=== PATIENT | female | born 1965 | race Caucasian/White ===

== ENCOUNTER → 2017-06-28 | Outpatient (CLI) | payer BC ==
--- NOTE | 2017-06-29 09:37 | MM ---
Reason for exam: screening (asymptomatic). Last mammogram was performed 1 year and 2 months ago. History: Patient has history of endometrial cancer at age 26. Physical Findings: A clinical breast exam by your physician is recommended on an annual basis and results should be correlated with mammographic findings. MG Screening Mammo w CAD Bilateral CC and MLO view(s) were taken. Prior study comparison: April 20, 2016, bilateral MG screening mammo w CAD. February 11, 2015, bilateral MG screening mammo w CAD. February 04, 2014, bilateral digital screening mammo w/CAD. There are scattered fibroglandular densities. Finding: There are typically benign calcifications in both breasts. No significant changes in finding since April 20, 2016, February 11, 2015, and February 04, 2014. ASSESSMENT: Benign, BI-RAD 2 RECOMMENDATION: Routine screening mammogram of both breasts in 1 year.
== END | disposition home or self-care (01) ==
LOC: RADMAMWWP 15:53
PROVIDERS: ATTEND Family Medicine
DX: Z12.31 Encounter for screening mammogram for malignant neoplasm of breast (principal)

== ENCOUNTER → 2018-07-03 | Outpatient (CLI) | payer BC ==
--- NOTE | 2018-07-04 14:58 | MM ---
Reason for exam: screening (asymptomatic). Last mammogram was performed 1 year ago. History: Patient has history of endometrial cancer at age 26. Physical Findings: A clinical breast exam by your physician is recommended on an annual basis and results should be correlated with mammographic findings. MG Screening Mammo w CAD Bilateral CC and MLO view(s) were taken. Prior study comparison: June 28, 2017, bilateral MG screening mammo w CAD. April 20, 2016, bilateral MG screening mammo w CAD. The breast tissue is almost entirely fat. No significant changes when compared with prior studies. ASSESSMENT: Benign, BI-RAD 2 RECOMMENDATION: Routine screening mammogram of both breasts in 1 year.
== END | disposition home or self-care (01) ==
LOC: RADMAMWWP 09:53
PROVIDERS: ATTEND Family Medicine
DX: Z12.31 Encounter for screening mammogram for malignant neoplasm of breast (principal)
CPT/HCPCS: 77067

== ENCOUNTER → 2019-12-03 | Outpatient (CLI) | payer BC ==
--- NOTE | 2019-12-03 20:24 | US ---
EXAMINATION TYPE: US transvaginal DATE OF EXAM: 12/03/2019 COMPARISON: NONE CLINICAL HISTORY: N95.0 Post Menopausal Bleeding. One episode of postmenopausal bleeding. LMP 2 years ago. Hx precancerous cells in cervix. Procedure done for precancerous cells. Hx . . TECHNIQUE: Transvaginal. Date of LMP: 2 years ago. EXAM MEASUREMENTS: Uterus: 8.7 x 6.2 x 5.2 cm Endometrial Stripe: 0.75 cm Right Ovary: Not visualized Left Ovary: Not visualized cm 1. Uterus: Anteverted Appears heterogeneous. Multiple subcentimeter anechoic-hypoechoic areas seen w ithin the cervix. Limited. 2. Endometrium: Limited, measured at 0.75 cm. 3. Bilateral Adnexa: Appear to be wnl. 4. Posterior cul-de-sac: Appears to be wnl. IMPRESSION: Limited exam. Heterogeneous echotexture within the cervix with some possible associated n abothian cysts and myometrium also not well seen in its entirety. Ovaries are not visualized.
== END | disposition home or self-care (01) ==
LOC: RADUSWWP 16:39
PROVIDERS: ATTEND Family Medicine
DX: N95.0 Postmenopausal bleeding (principal)
CPT/HCPCS: 76830

== ENCOUNTER → 2020-01-07 | Outpatient (CLI) | payer BC ==
[2020-01-07 08:34] LABS: Basophils # (A) 0.1 k/uL (0-0.2); Basophils % (A) 1 %; Eosinophils # (A) 0.3 k/uL (0-0.7); Eosinophils % (A) 5 %; HCT 43.1 % (34.0-46.0); HGB 13.8 gm/dL (11.4-16.0); Lymphocytes # (A) 2.4 k/uL (1.0-4.8); Lymphocytes % (A) 37 %; MCH 29.1 pg (25.0-35.0); Mean Platelet Volume 8.2; Monocytes # (A) 0.3 k/uL (0-1.0); Monocytes % (A) 4 %; Neutrophils # (A) 3.3 k/uL (1.3-7.7); Neutrophils % (A) 51 %; Platelet Count 219 k/uL (150-450); RBC 4.74 m/uL (3.80-5.40); RDW 13.7 % (11.5-15.5); WBC 6.5 k/uL (3.8-10.6)
[2020-01-07 08:49] LABS: Albumin 4.2 g/dL (3.5-5.0); Calcium 9.2 mg/dL (8.4-10.2); Potassium 3.8 mmol/L (3.5-5.1); Total Bilirubin 0.7 mg/dL (0.2-1.3); Total Protein 7.1 g/dL (6.3-8.2)
[2020-01-07 08:52] LABS: Appearance,Urine Clear (Clear); Bacteria,Urine Rare /hpf; Bilirubin,Urine Negative (Negative); Blood,Urine Negative (Negative); Color,Urine Yellow; Glucose,Urine (UA) Negative (Negative); Ketones,Urine Negative (Negative); Leukocyte Esterase,Urine Large (Negative); Mucus,Urine Rare /hpf; Nitrite,Urine Negative (Negative); Protein,Urine Negative (Negative); RBC,Urine 1 /hpf (0-5); Specific Gravity,Urine 1.019 (1.001-1.035); Squamous Epithelial Cell,Urine 2 /hpf (0-4); Urobilinogen,Urine <2.0 mg/dL (<2.0); WBC,Urine 2 /hpf (0-5)
[2020-01-07 15:53] LABS: Hemoglobin A1C 5.2 % (4.0-6.0)
--- NOTE | 2020-01-08 11:41 | MM ---
Reason for exam: screening (asymptomatic). Last mammogram was performed 1 year and 6 months ago. History: Patient is postmenopausal and has history of endometrial cancer at age 26. Physical Findings: A clinical breast exam by your physician is recommended on an annual basis and results should be correlated with mammographic findings. MG Screening Mammo w CAD Bilateral CC and MLO view(s) were taken. Prior study comparison: July 03, 2018, bilateral MG screening mammo w CAD. June 28, 2017, bilateral MG screening mammo w CAD. The breast tissue is almost entirely fat. There are benign appearing round dystrophic calcifications bilaterally. There is no discrete abnormality. ASSESSMENT: Benign, BI-RAD 2 RECOMMENDATION: Routine screening mammogram of both breasts in 1 year.
== END | disposition home or self-care (01) ==
LOC: RADMAMWWP 08:00
PROVIDERS: ATTEND Family Medicine
DX: Z12.31 Encounter for screening mammogram for malignant neoplasm of breast (principal); Z00.00 Encounter for general adult medical examination without abnormal findings; H35.033 Hypertensive retinopathy, bilateral; E56.8 Deficiency of other vitamins; E88.81 Metabolic syndrome and other insulin resistance
CPT/HCPCS: 77067; 80053; 81001; 82306; 82607; 83036; 84443; 85025

== ENCOUNTER 2020-04-05 20:04 | Inpatient (IN) | payer BC ==
--- NOTE | 2020-04-05 21:06 | ED ---
General Adult HPI - General Chief complaint: Chest Pain Stated complaint: Chest Pain Time Seen by Provider: 04/05/20 20:30 Source: patient, family Mode of arrival: wheelchair Limitations: no limitations - History of Present Illness Initial comments: Patient is a pleasant 54-year-old female presenting to the emergency Department with complaints of chest discomfort. Onset of symptoms was around 15 minutes prior to arrival. Patient has pressure in her chest. No radiation. Patient has mild tingling of the left arm. No associated nausea or dyspnea. Patient was sweaty earlier. No leg pain or leg swelling. Patient did have similar symptoms a few months ago and was told she had a heart attack and had stent placement at that time. Patient did take nitroglycerin at home with improvement of symptoms however symptoms have returned. Discomfort is currently a or 06/21 - Related Data Home Medications Medication Instructions Recorded Confirmed Albuterol Sulfate [Ventolin HFA] 2 puff INHALATION RT-Q4H PRN 02/06/20 02/06/20 Beclomethasone Dip 80 Mcg/Puff 2 puff INHALATION RT-BID 02/06/20 02/06/20 [Qvar 80 mcg] Phentermine HCl 37.5 mg PO DAILY 02/06/20 02/06/20 Previous Rx's Medication Instructions Recorded Amiodarone [Cordarone] 200 mg PO BID #60 tab 02/09/20 Aspirin 81 mg PO DAILY #30 chew 02/09/20 Atorvastatin [Lipitor] 80 mg PO HS #30 tab 02/09/20 Clopidogrel [Plavix] 75 mg PO DAILY #30 tab 02/09/20 Losartan [Cozaar] 25 mg PO DAILY #30 tab 02/09/20 Magnesium Oxide [Mag-Ox] 400 mg PO DAILY #30 tab 02/09/20 Metoprolol Tartrate [Lopressor] 12.5 mg PO DAILY #30 tab 02/09/20 Nitroglycerin Sl Tabs [Nitrostat] 0.4 mg SUBLINGUAL Q5M PRN #25 tab 02/09/20 Allergies Allergy/AdvReac Type Severity Reaction Status Date / Time No Known Allergies Allergy Verified 04/05/20 20:09 Review of Systems ROS Statement: Those systems with pertinent positive or pertinent negative responses have been documented in the HPI. ROS Other: All systems not noted in ROS Statement are negative. Constitutional: Denies: fever Eyes: Denies: eye pain ENT: Denies: ear pain Respiratory: Denies: cough Cardiovascular: Reports: chest pain Endocrine: Denies: fatigue Gastrointestinal: Denies: abdominal pain, nausea Genitourinary: Denies: dysuria Musculoskeletal: Denies: back pain Skin: Denies: rash Neurological: Denies: weakness Past Medical History Past Medical History: Asthma, Myocardial Infarction ([place]) Additional Past Medical History / Comment(s): eye disorder: arteria tortuosity History of Any Multi-Drug Resistant Organisms: None Reported Past Surgical History: Section Additional Past Surgical History / Comment(s): heart cath with stent x1 02/06/[address] Freire Past Anesthesia/Blood Transfusion Reactions: No Reported Reaction Past Psychological History: No Psychological Hx Reported Smoking Status: Never smoker Past Alcohol Use History: None Reported Past Drug Use History: None Reported - Past Family History Father Family Medical History: Diabetes Mellitus, Hypertension Additional Family Medical History / Comment(s): diet controlled DM General Exam Limitations: no limitations General appearance: alert, in no apparent distress Head exam: Present: normocephalic Eye exam: Present: normal appearance, PERRL ENT exam: Present: normal oropharynx Neck exam: Present: normal inspection Respiratory exam: Present: normal lung sounds bilaterally. Absent: chest wall tenderness Cardiovascular Exam: Present: regular rate, normal rhythm Expanded Peripheral pulses: 2+: Radial (R), Radial (L), Dorsalis Pedis (R), Dorsalis Pedis (L) GI/Abdominal exam: Present: soft. Absent: tenderness Extremities exam: Present: normal inspection. Absent: pedal edema, calf tenderness Neurological exam: Present: alert Psychiatric exam: Present: normal affect, normal mood Skin exam: Present: normal color Course Vital Signs 04/05/20 04/05/20 04/05/20 20:06 21:00 22:00 Temperature 97.6 F Pulse Rate 83 70 57 L Respiratory 18 16 16 Rate Blood Pressure 110/68 111/63 116/70 O2 Sat by Pulse 97 98 Oximetry 04/05/20 23:00 Temperature Pulse Rate 69 Respiratory 16 Rate Blood Pressure 127/70 O2 Sat by Pulse 99 Oximetry EKG Findings - EKG Comments: EKG Findings:: Normal sinus rhythm 66. NH 162. QRS 82. QT 454. QTC 475. Left axis. Inferior Q waves. Nonspecific T waves. Poor R-wave progression. Medical Decision Making - Medical Decision Making Patient reevaluated and again further improved following nitroglycerin. Patient is symptom-free at this point. Patient and family updated on results and plan. Case discussed in detail with Dr. Adrian, who will admit covering for Dr. Cleary. He does request heparin. - Lab Data Result diagrams: 04/05/20 20:43 04/05/20 20:43 Lab Results 04/05/20 04/05/20 04/05/20 Range/Units 20:43 20:43 20:43 WBC 8.8 (3.8-10.6) k/uL RBC 4.49 (3.80-5.40) m/uL Hgb 13.1 (11.4-16.0) gm/dL Hct 40.8 (34.0-46.0) % MCV 91.0 (80.0-100.0) fL MCH 29.1 (25.0-35.0) pg MCHC 32.0 (31.0-37.0) g/dL RDW 13.2 (11.5-15.5) % Plt Count 219 (150-450) k/uL Neutrophils % 49 % Lymphocytes % 39 % Monocytes % 5 % Eosinophils % 4 % Basophils % 1 % Neutrophils # 4.3 (1.3-7.7) k/uL Lymphocytes # 3.4 (1.0-4.8) k/uL Monocytes # 0.4 (0-1.0) k/uL Eosinophils # 0.3 (0-0.7) k/uL Basophils # 0.1 (0-0.2) k/uL PT 10.2 (9.0-12.0) sec INR 1.0 (<1.2) APTT 23.5 (22.0-30.0) sec D-Dimer 0.33 (<0.60) mg/L FEU Sodium 139 (137-145) mmol/L Potassium 3.7 (3.5-5.1) mmol/L Chloride 106 (98-107) mmol/L Carbon Dioxide 24 (22-30) mmol/L Anion Gap 9 mmol/L BUN 19 H (7-17) mg/dL Creatinine 0.73 (0.52-1.04) mg/dL Est GFR (CKD-EPI)AfAm >90 (>60 ml/min/1.73 sqM) Est GFR (CKD-EPI)NonAf >90 (>60 ml/min/1.73 sqM) Glucose 107 H (74-99) mg/dL Calcium 8.8 (8.4-10.2) mg/dL Magnesium 1.8 (1.6-2.3) mg/dL Total Bilirubin 0.6 (0.2-1.3) mg/dL AST 27 (14-36) U/L ALT 23 (4-34) U/L Alkaline Phosphatase 41 (38-126) U/L Troponin I (0.000-0.034) ng/mL Total Protein 6.6 (6.3-8.2) g/dL Albumin 3.9 (3.5-5.0) g/dL Amylase 75 (30-110) U/L Lipase 224 (23-300) U/L 05/25/20 Range/Units 20:43 WBC (3.8-10.6) k/uL RBC (3.80-5.40) m/uL Hgb (11.4-16.0) gm/dL Hct (34.0-46.0) % MCV (80.0-100.0) fL MCH (25.0-35.0) pg MCHC (31.0-37.0) g/dL RDW (11.5-15.5) % Plt Count (150-450) k/uL Neutrophils % % Lymphocytes % % Monocytes % % Eosinophils % % Basophils % % Neutrophils # (1.3-7.7) k/uL Lymphocytes # (1.0-4.8) k/uL Monocytes # (0-1.0) k/uL Eosinophils # (0-0.7) k/uL Basophils # (0-0.2) k/uL PT (9.0-12.0) sec INR (<1.2) APTT (22.0-30.0) sec D-Dimer (<0.60) mg/L FEU Sodium (137-145) mmol/L Potassium (3.5-5.1) mmol/L Chloride (98-107) mmol/L Carbon Dioxide (22-30) mmol/L Anion Gap mmol/L BUN (7-17) mg/dL Creatinine (0.52-1.04) mg/dL Est GFR (CKD-EPI)AfAm (>60 ml/min/1.73 sqM) Est GFR (CKD-EPI)NonAf (>60 ml/min/1.73 sqM) Glucose (74-99) mg/dL Calcium (8.4-10.2) mg/dL Magnesium (1.6-2.3) mg/dL Total Bilirubin (0.2-1.3) mg/dL AST (14-36) U/L ALT (4-34) U/L Alkaline Phosphatase (38-126) U/L Troponin I <0.012 (0.000-0.034) ng/mL Total Protein (6.3-8.2) g/dL Albumin (3.5-5.0) g/dL Amylase (30-110) U/L Lipase (23-300) U/L - Radiology Data Radiology results: image reviewed (Chest x-ray shows no acute process) Disposition Clinical Impression: Chest pain Disposition: ADMITTED IP TO THIS HOSP Is patient prescribed a controlled substance at d/c from ED?: No Referrals: Barbie Cleary MD [Primary Care Provider] - 1-2 days Decision Time: 23:23
[2020-04-05] MEDS ORDERED: ASPIRIN 81 MG PO STA (21:12)
[2020-04-05] MEDS ORDERED: NITROGLYCERIN OINT 1 INCH/GM PACKET TOPICAL STA (21:12)
[2020-04-05] MEDS ORDERED: NITROGLYCERIN SL TABS 0.4 MG TAB SUBLINGUAL STA (21:12)
[2020-04-05 21:40] LABS: Basophils # (A) 0.1 k/uL (0-0.2); Basophils % (A) 1 %; Eosinophils # (A) 0.3 k/uL (0-0.7); Eosinophils % (A) 4 %; HCT 40.8 % (34.0-46.0); HGB 13.1 gm/dL (11.4-16.0); Lymphocytes # (A) 3.4 k/uL (1.0-4.8); Lymphocytes % (A) 39 %; MCH 29.1 pg (25.0-35.0); Mean Platelet Volume 8.4; Monocytes # (A) 0.4 k/uL (0-1.0); Monocytes % (A) 5 %; Neutrophils # (A) 4.3 k/uL (1.3-7.7); Neutrophils % (A) 49 %; Platelet Count 219 k/uL (150-450); RBC 4.49 m/uL (3.80-5.40); RDW 13.2 % (11.5-15.5); WBC 8.8 k/uL (3.8-10.6)
[2020-04-05 21:51] LABS: D-Dimer 0.33 mg/L FEU (<0.60); Partial Thromboplastin Time 23.5 sec (22.0-30.0); Prothrombin Time 10.2 sec (9.0-12.0)
--- NOTE | 2020-04-05 21:54 | XR ---
EXAMINATION TYPE: XR chest 2V DATE OF EXAM: 04/05/2020 COMPARISON: 02/06/2020 HISTORY: Chest pain TECHNIQUE: FINDINGS: Heart and mediastinum are normal. Lungs are clear. Diaphragm is normal. There are chest candelaria ds. Bony thorax is intact. IMPRESSION: Normal chest. No change.
[2020-04-05 21:55] LABS: ALT 23 U/L (4-34); AST 27 U/L (14-36); African American GFR (CKD) >90 (>60 ml/min/1.73 sqM); Albumin 3.9 g/dL (3.5-5.0); Alkaline Phosphatase 41 U/L (38-126); Amylase 75 U/L (30-110); Anion Gap 9 mmol/L; Blood Urea Nitrogen 19 mg/dL (7-17); Calcium 8.8 mg/dL (8.4-10.2); Carbon Dioxide 24 mmol/L (22-30); Chloride 106 mmol/L (98-107); Glucose 107 mg/dL (74-99); Magnesium 1.8 mg/dL (1.6-2.3); Non-African American GFR(CKD) >90 (>60 ml/min/1.73 sqM); Potassium 3.7 mmol/L (3.5-5.1); Sodium 139 mmol/L (137-145); Total Bilirubin 0.6 mg/dL (0.2-1.3); Total Protein 6.6 g/dL (6.3-8.2)
[2020-04-05] MEDS ORDERED: HEPARIN SODIUM,PORCINE 5,000 UNIT/ML 1 ML VIAL IV ONE (23:24)
[2020-04-05] MEDS ORDERED: NITROGLYCERIN SL TABS 0.4 MG TAB SUBLINGUAL PRN (23:24)
[2020-04-05] MEDS ORDERED: HEPARIN SODIUM,PORCINE 5,000 UNIT/ML 1 ML VIAL IV PRN (23:24)
[2020-04-06] MEDS: NITROGLYCERIN OINT 1 INCH/GM PACKET TOPICAL SCH ×4 (00:57→16:13)
[2020-04-06] MEDS: HEPARIN SOD,PORK IN 0.45% NACL 25,000 UNIT in 0.45% NACL 1 250ML.BAG IV SCH ×2 (01:14→22:04)
[2020-04-06 03:54] LABS: Mean Platelet Volume 8.1; Platelet Count 195 k/uL (150-450)
[2020-04-06 04:58] LABS: Cholesterol 108 mg/dL (<200); HDL Cholesterol 55 mg/dL (40-60); LDL Cholesterol,Calculated 45 mg/dL (0-99); Triglycerides 40 mg/dL (<150)
[2020-04-06] MEDS ORDERED: NITROGLYCERIN SL TABS 0.4 MG TAB SUBLINGUAL PRN (07:27)
[2020-04-06] MEDS ORDERED: ALBUTEROL NEBULIZED 2.5 MG/3 ML INHALATION PRN (07:27)
--- NOTE | 2020-04-06 07:35 | P.HPIM ---
History of Present Illness H&P Date: 04/06/20 Chief Complaint: Unstable angina, CAD, hypertension and hyperlipidemia 54-year-old female one of Dr. Cleary's patient with past medical history of CAD post RI in January 2020 with the PCI and stent placement of the distal part of the LAD done successfully after presentation to the emergency department with ST RI. Patient presented to the emergency department on 04/05/2020 complaining of midsternal chest pain as a new onset lasted for about 15-20 minutes appears to arrival to the emergency department with significant shortness of breath mild nausea with no vomiting mild cold sweat and palpitation, her symptoms started watch his helping her to clean the pool and help with a cover on according to her did not exert herself more than 15-20 minutes of the time befo re the symptoms started, continue having symptoms until she came to the emergency department after first and second nitro his symptoms start getting slightly but better.. First troponin came back negative patient had no significant abnormality in her EKG. Patient was started on heparin drip but be ta aries and admitted to the hospital serial CK with troponin will be done repeat EKG and consult cardiology. Review of Systems CONSTITUTIONAL: Well-developed no acute respiratory distress. EYES: No icterus sclerae, no conjunctivitis. EARS, NOSE, MOUTH, THROAT, and FACE: No sore throat, lymphadenopathy, carotid bruits or deformity. RESPIRATORY: Positive shortness of breath and history of asthma. CARDIOVASCULAR: Positive chest pain and angina. GASTROINTESTINAL: No Abd pain, Nausea or vomiting, no Diarrhea or constipation, No GI Bleed, no distention or masses. GENITOURINARY: Negative for Hematuria or UTI, no kidney stones. INTEGUMENT/BREAST: Negative for any muscular injury with mild osteoarthritis.. HEMATOLOGIC/LYMPHATIC: Negative for bleed or purpura. MUSCULOSKELTAL: Negative for Myalgia or arthralgia. NEURLOGICAL: No LOC, Sz or syncope, blurred vision dizziness or abnormality.. BEHAVIORAL/PSYCH: Negative. ENDOCRINE: Negative. Past Medical History Past Medical History: Asthma, Myocardial Infarction ([place]) Additional Past Medical History / Comment(s): eye disorder: arteria tortuosity History of Any Multi-Drug Resistant Organisms: None Reported Past Surgical History: Section Additional Past Surgical History / Comment(s): heart cath with stent x1 02/06/[address] Freire Past Anesthesia/Blood Transfusion Reactions: No Reported Reaction Past Psychological History: No Psychological Hx Reported Smoking Status: Never smoker Past Alcohol Use History: None Reported Past Drug Use History: None Reported - Past Family History Father Family Medical History: Diabetes Mellitus, Hypertension Additional Family Medical History / Comment(s): diet controlled DM Medications and Allergies Home Medications Medication Instructions Recorded Confirmed Type Albuterol Sulfate [Ventolin HFA] 2 puff INHALATION RT-Q4H PRN 02/06/20 04/06/20 History Beclomethasone Dip 80 Mcg/Puff 2 puff INHALATION RT-BID 02/06/20 04/06/20 History [Qvar 80 mcg] Phentermine HCl 37.5 mg PO DAILY 02/06/20 04/06/20 History Amiodarone [Cordarone] 200 mg PO BID #60 tab 02/09/20 04/06/20 Rx Aspirin 81 mg PO DAILY #30 chew 02/09/20 04/06/20 Rx Atorvastatin [Lipitor] 80 mg PO HS #30 tab 02/09/20 04/06/20 Rx Clopidogrel [Plavix] 75 mg PO DAILY #30 tab 02/09/20 04/06/20 Rx Losartan [Cozaar] 25 mg PO DAILY #30 tab 02/09/20 04/06/20 Rx Magnesium Oxide [Mag-Ox] 400 mg PO DAILY #30 tab 02/09/20 04/06/20 Rx Nitroglycerin Sl Tabs [Nitrostat] 0.4 mg SUBLINGUAL Q5M PRN #25 tab 02/09/20 04/06/20 Rx Metoprolol Tartrate [Lopressor] 12.5 mg PO BID 04/06/20 04/06/20 History Allergies Allergy/AdvReac Type Severity Reaction Status Date / Time No Known Allergies Allergy Verified 04/05/20 20:09 Physical Exam Vitals: Vital Signs Temp Pulse Resp BP Pulse Ox 04/06/20 05:00 53 L 17 118/75 95 04/06/20 04:36 53 L 17 120/76 96 04/06/20 02:31 55 L 18 129/73 97 04/06/20 02:00 69 16 119/78 97 04/06/20 01:00 71 16 131/68 97 04/06/20 00:00 71 16 130/86 97 04/05/20 23:00 69 16 127/70 99 04/05/20 22:00 57 L 16 116/70 98 04/05/20 21:00 70 16 111/63 04/05/20 20:06 97.6 F 83 18 110/68 97 Intake and Output 04/05/20 04/05/20 04/06/20 14:59 22:59 06:59 Other: Weight 113.398 kg General Appearance: Alert, cooperative, no distress, appears stated age. Significantly overweight. Neck HEENT: Supple, no lymphadenopathy, no thyroid enlargement, no carotid bruits. Lungs: Decreased breath sounds bilaterally with fine rhonchi no crackles or wheezes. Chest Wall: Decrease expansion with deep inspiration no tenderness and no deformity was found on exam, no costochondral pain or discomfort. Heart: Regular rate and rhythm, S1, S2 normal, no murmur, rub or gallop. Back: Symmetric, no curvature, ROM normal, no CVA tenderness. Abdomen: Soft, non-tender, bowel sounds active all four quadrants, no masses, no organomegaly. Extremities: Extremities normal, atraumatic, no cyanosis or edema. Pulses: 2+ and symmetric. Skin: Skin color, texture, tugor normal, no rashes or lesions. Neurologic: Alert oriented x3 cranial nerves II through XII intact, no motor deficit, no abnormal balance or gait. Results CBC & Chem 7: 04/06/20 03:19 04/05/20 20:43 Labs: Abnormal Lab Results - Last 24 Hours (Table) 04/05/20 04/06/20 04/06/20 Range/Units 20:43 03:19 03:19 APTT 63.9 H (22.0-30.0) sec BUN 19 H (7-17) mg/dL Glucose 107 H (74-99) mg/dL Troponin I 0.995 H* (0.000-0.034) ng/mL Thrombosis Risk Factor Assmnt - DVT/VTE Prophylaxis DVT/VTE Prophylaxis: Pharmacologic Prophylaxis ordered, Mechanical Prophylaxis ordered Assessment and Plan Assessment: 1 unstable angina: Patient has coronary artery disease with risk factor patient will be heparinize admitted to the Hospital CK with troponin to be done we'll consult cardiology if any elevation on troponin or change in EKG patient might require to go for intervention we'll repeat another echocardiogram this time repeat EKG in the morning. 2 possible non-ST RI: Troponin is elevated patient be seen cardiology might need to go to the cathode washer. 3 history of CAD post PCI and stent placement of the distal LAD 3 month ago patient had similar presentation this time despite a secondary prevention has been on since last admission. 4 A. fib with RVR: Patient remain on metoprolol 12.5 mg daily along with amiodarone 200 mg twice a day. 5 hyperlipidemia: Remain on atorvastatin 80 mg a day. 6 hypertension: On Cozaar 25 mg a day and Lopressor 12.5 mg daily. 7 history of asthma: Remain on Ventolin and Qvar. 8 GI prophylaxis: Patient will be on Pepcid 20 mg daily. 9 DVT prophylaxis: Patient will be on heparin drip. CODE STATUS: Full code. Admit patient to the hospital for 2 night stay.
[2020-04-06] MEDS ORDERED: ASPIRIN 325 MG TAB PO SCH (09:00)
--- NOTE | 2020-04-06 12:03 | P.CRDCN ---
History of Present Illness Consult date: 04/06/20 Chief complaint: Chest pain History of present illness: This is a very pleasant 54-year-old female patient who sees Dr. Freire in the office with a past medical history significant for coronary artery disease and prior stenting of the LAD in January 2020 in the setting of acute coronary syndrome as well as hypertension, dyslipidemia, and history of smoking, presented to the emergency room complaining of chest discomfort. She was in her usual state of health until yesterday when she was doing some work at her backyard around the pool when she started experiencing discomfort in the chest. She described the discomfort as a pressure in the mid of the chest without any radiation but it was associated with profound sweating. No dizziness or lightheadedness or syncope. Because the discomfort did not go away in the next 15 minutes she decided to come to the emergency room. Currently the patient is having very mild ongoing chest discomfort. The troponin came in to be abnormal and consistent with acute coronary event. The chest x-ray did not show any acute abnormalities. The EKG showed sinus rhythm with nonspecific changes. I advised the patient to undergo a heart catheterization to rule out any severe underlying coronary artery disease in the stented segment or any other segments. The procedure in details was explained to the patient and she is in full understanding. Meanwhile we'll keep the patient nothing by mouth and I will contact Dr. Freire. Please note that during the patient admission back in January 2020 the echo revealed impaired LV function with EF between 30-35%. I'm going to repeat her echocardiogram this time. Please note that the patient also stated that she was compliant with her dual antiplatelet therapy. Past Medical History Past Medical History: Asthma, Myocardial Infarction ([place]) Additional Past Medical History / Comment(s): eye disorder: arteria tortuosity Last Myocardial Infarction Date:: 02/06/20 History of Any Multi-Drug Resistant Organisms: None Reported Past Surgical History: Section Additional Past Surgical History / Comment(s): heart cath with stent x1 02/06/[address] Freire Past Anesthesia/Blood Transfusion Reactions: No Reported Reaction Past Psychological History: No Psychological Hx Reported Smoking Status: Never smoker Past Alcohol Use History: None Reported Past Drug Use History: None Reported - Past Family History Father Family Medical History: Diabetes Mellitus, Hypertension Additional Family Medical History / Comment(s): diet controlled DM Medications and Allergies Home Medications Medication Instructions Recorded Confirmed Type Albuterol Sulfate [Ventolin HFA] 2 puff INHALATION RT-Q4H PRN 02/06/20 04/06/20 History Beclomethasone Dip 80 Mcg/Puff 2 puff INHALATION RT-BID 02/06/20 04/06/20 History [Qvar 80 mcg] Phentermine HCl 37.5 mg PO DAILY 02/06/20 04/06/20 History Amiodarone [Cordarone] 200 mg PO BID #60 tab 02/09/20 04/06/20 Rx Aspirin 81 mg PO DAILY #30 chew 02/09/20 04/06/20 Rx Atorvastatin [Lipitor] 80 mg PO HS #30 tab 02/09/20 04/06/20 Rx Clopidogrel [Plavix] 75 mg PO DAILY #30 tab 02/09/20 04/06/20 Rx Losartan [Cozaar] 25 mg PO DAILY #30 tab 02/09/20 04/06/20 Rx Magnesium Oxide [Mag-Ox] 400 mg PO DAILY #30 tab 02/09/20 04/06/20 Rx Nitroglycerin Sl Tabs [Nitrostat] 0.4 mg SUBLINGUAL Q5M PRN #25 tab 02/09/20 04/06/20 Rx Metoprolol Tartrate [Lopressor] 12.5 mg PO BID 04/06/20 04/06/20 History Allergies Allergy/AdvReac Type Severity Reaction Status Date / Time No Known Allergies Allergy Verified 04/05/20 20:09 Physical Exam Vitals: Vital Signs Temp Pulse Resp BP Pulse Ox 04/06/20 11:44 66 16 150/82 98 04/06/20 09:00 97.5 F L 69 18 135/87 98 04/06/20 06:39 59 L 18 134/80 95 04/06/20 05:00 53 L 17 118/75 95 04/06/20 04:36 53 L 17 120/76 96 04/06/20 02:31 55 L 18 129/73 97 04/06/20 02:00 69 16 119/78 97 04/06/20 01:00 71 16 131/68 97 04/06/20 00:00 71 16 130/86 97 04/05/20 23:00 69 16 127/70 99 04/05/20 22:00 57 L 16 116/70 98 04/05/20 21:00 70 16 111/63 04/05/20 20:06 97.6 F 83 18 110/68 97 Intake and Output 04/05/20 04/06/20 04/06/20 22:59 06:59 14:59 Other: Weight 113.398 kg 113.398 kg - Constitutional General appearance: no acute distress - Respiratory Respiratory: bilateral: CTA - Cardiovascular Rhythm: regular Heart sounds: normal: S1, S2 Results 04/06/20 03:19 04/05/20 20:43 Cardiac Enzymes 04/05/20 04/05/20 04/06/20 Range/Units 20:43 20:43 03:19 AST 27 (14-36) U/L Troponin I <0.012 0.995 H* (0.000-0.034) ng/mL 04/06/20 Range/Units 08:54 AST (14-36) U/L Troponin I 2.890 H* (0.000-0.034) ng/mL Coagulation 04/05/20 04/06/20 Range/Units 20:43 03:19 PT 10.2 (9.0-12.0) sec APTT 23.5 63.9 H (22.0-30.0) sec Lipids 04/06/20 Range/Units 03:19 Triglycerides 40 (<150) mg/dL Cholesterol 108 (<200) mg/dL HDL Cholesterol 55 (40-60) mg/dL CBC 04/05/20 04/06/20 Range/Units 20:43 03:19 WBC 8.8 (3.8-10.6) k/uL RBC 4.49 (3.80-5.40) m/uL Hgb 13.1 (11.4-16.0) gm/dL Hct 40.8 (34.0-46.0) % Plt Count 219 195 (150-450) k/uL Comprehensive Metabolic Panel 04/05/20 Range/Units 20:43 Sodium 139 (137-145) mmol/L Potassium 3.7 (3.5-5.1) mmol/L Chloride 106 (98-107) mmol/L Carbon Dioxide 24 (22-30) mmol/L BUN 19 H (7-17) mg/dL Creatinine 0.73 (0.52-1.04) mg/dL Glucose 107 H (74-99) mg/dL Calcium 8.8 (8.4-10.2) mg/dL AST 27 (14-36) U/L ALT 23 (4-34) U/L Alkaline Phosphatase 41 (38-126) U/L Total Protein 6.6 (6.3-8.2) g/dL Albumin 3.9 (3.5-5.0) g/dL Current Medications Generic Name Dose Route Start Last Admin Trade Name Freq PRN Reason Stop Dose Admin Albuterol Sulfate 2.5 mg 04/06/20 07:27 Ventolin Nebulized INHALATION RT-Q4H PRN Shortness Of Breath Amiodarone HCl 200 mg 04/06/20 09:00 Cordarone PO BID ON LICENSE OF [facility] Aspirin 81 mg 04/06/20 09:00 Aspirin PO DAILY ON LICENSE OF [facility] Atorvastatin Calcium 80 mg 04/06/20 21:00 Lipitor PO HS ON LICENSE OF [facility] Clopidogrel Bisulfate 75 mg 04/06/20 09:00 Plavix PO DAILY ON LICENSE OF [facility] Famotidine 20 mg 04/06/20 09:00 Pepcid PO DAILY ON LICENSE OF [facility] Fluticasone Propionate 2 puff 04/06/20 08:00 Flovent 110 Mcg Inhaler INHALATION RT-BID ON LICENSE OF [facility] Heparin Sodium (Porcine) 0 unit 04/05/20 23:24 Heparin IV Q6HR PRN Low PTT Protocol Heparin Sodium/Sodium Chloride 250 mls @ 10.002 mls/hr 04/05/20 23:30 04/06/20 01:14 25,000 unit/ Sodium Chloride IV 8.82 units/kg/hr .Q24H JEANNE 10.002 mls/hr Administration Protocol 8.82 UNITS/KG/HR Losartan Potassium 25 mg 04/06/20 09:00 Cozaar PO DAILY ON LICENSE OF [facility] Magnesium Oxide 400 mg 04/06/20 09:00 Mag-Ox PO DAILY ON LICENSE OF [facility] Metoprolol Tartrate 12.5 mg 04/06/20 09:00 Lopressor PO BID ON LICENSE OF [facility] Nitroglycerin 1 inch 04/06/20 00:00 04/06/20 06:15 Nitro-Bid Oint TOPICAL Not Given Q6HR ON LICENSE OF [facility] Nitroglycerin 0.4 mg 04/06/20 07:27 Nitrostat SUBLINGUAL Q5M PRN Chest Pain Intake and Output 04/05/20 04/06/20 04/06/20 22:59 06:59 14:59 Other: Weight 113.398 kg 113.398 kg 04/06/20 03:19 04/05/20 20:43 Assessment and Plan Assessment: Assessment #1 acute coronary event #2 severe CAD and status post PCI of the LAD #3 ischemic cardiomyopathy #4 history of smoking Plan #1 continue the current medical regimen #2 proceed with coronary angiogram #3 obtain an echocardiogram was Doppler #4 follow-up with the patient
[2020-04-06] MEDS ORDERED: ASPIRIN 325 MG TAB ONE (12:29)
[2020-04-06] MEDS ORDERED: LIDOCAINE 1% INJ 10MG/ML (20 ML MDV) ONE (12:29)
[2020-04-06] MEDS ORDERED: ASPIRIN 325 MG TAB PO ONE (12:31)
[2020-04-06] MEDS ORDERED: SODIUM CHLORIDE 0.9% 1,000 ML IV ONE (12:31)
[2020-04-06] MEDS ORDERED: MIDAZOLAM 2 MG/2 ML VIAL IVP ONE (12:39)
[2020-04-06] MEDS ORDERED: LIDOCAINE 1% INJ 10MG/ML (20 ML MDV) SQ ONE (12:47)
[2020-04-06] MEDS ORDERED: NITROGLYCERIN 1000MCG/10ML SYRINGE INTRACORON ONE (12:57)
[2020-04-06] MEDS ORDERED: IOPAMIDOL-370 100ML BTL INJ ONE ×2 (13:05→13:11)
[2020-04-06] MEDS: FLUTICASONE 110 MCG INHALER INHALATION SCH ×2 (15:40→19:39)
[2020-04-06] MEDS: ASPIRIN 81 MG PO SCH (15:40)
[2020-04-06] MEDS: AMIODARONE 200 MG TAB PO SCH ×2 (15:43→20:37)
[2020-04-06] MEDS: MAGNESIUM OXIDE 400 MG TAB PO SCH (15:44)
[2020-04-06] MEDS: METOPROLOL TARTRATE 12.5 MG TAB PO SCH ×2 (15:44→20:36)
[2020-04-06] MEDS: SODIUM CHLORIDE 0.9% 1,000 ML IV SCH (15:45)
[2020-04-06] MEDS: LOSARTAN 25 MG TAB PO SCH (16:11)
[2020-04-06] MEDS: CLOPIDOGREL 75 MG TAB PO SCH (16:11)
[2020-04-06] MEDS: FAMOTIDINE 20 MG TAB PO SCH ×2 (16:11→16:27)
[2020-04-06 19:22] LABS: Magnesium 1.9 mg/dL (1.6-2.3); Potassium 3.6 mmol/L (3.5-5.1)
[2020-04-06] MEDS: ATORVASTATIN 80 MG TAB PO SCH (20:36)
[2020-04-07] MEDS: NITROGLYCERIN OINT 1 INCH/GM PACKET TOPICAL SCH ×3 (00:34→05:14)
[2020-04-07 03:57] LABS: Mean Platelet Volume 8.3; Platelet Count 162 k/uL (150-450)
[2020-04-07] MEDS: SODIUM CHLORIDE 0.9% 1,000 ML IV SCH ×2 (05:14→17:50)
--- NOTE | 2020-04-07 06:04 | CC ---
CARDIAC CATHETERIZATION REPORT DATE OF SERVICE: 04/06/2020. PROCEDURE: Left heart catheterization and coronary angiography and left ventriculography. PERFORMED BY: Dr. Cori Freire. Moderate conscious sedation time was 33 minutes. Patient was administered Versed. Oxygen saturation, hemodynamics and EKG were monitored closely. CLINICAL INFORMATION: Mrs. Sanna Wan is a 54-year-old lady with a history of non-ST elevation [place] in January of this year and I performed a cardiac cath at that time, which revealed distal LAD occlusion and the distal LAD was curving and supplying the inferoapical portion. I performed stenting of this vessel after some deliberation. Possibility of a spontaneous coronary dissection was also entertained. I placed a 2.0, 12 [place] drug- eluting stent. The patient did well but came into the hospital yesterday with chest discomfort and had a troponin elevation suggestive of non-ST elevation [place] without significant EKG changes. She was advised cardiac cath evaluation by Dr. Juárez. I saw the patient, explained her the rationale, risks, benefits, options. She understood all details and I proceeded with the procedure. PROCEDURE NOTE: Under local anesthesia and strict aseptic precautions, a 6-[place] introducer was placed in the right femoral artery. Using standard Brandee catheters I performed coronary angiography and a pigtail catheter was used to check LV pressures and LV-gram was performed in 30-degree JACINTO projection. Patient tolerated the procedure well. The sheath was taken out and Angio-Seal device used to secure hemostasis but because of oozing I applied a FemoStop and patient remained quite stable and she was sent to the room in a stable condition. Results were discussed with the patient and also with her . CARDIAC CATHETERIZATION FINDINGS: The left ventricular end-diastolic pressure was about 8 mmHg without any gradient across aortic valve. CORONARY ANGIOGRAPHY FINDINGS: RIGHT CORONARY ARTERY: Technically nondominant vessel, tortuous, gives off an acute marginal branch and a conus branch proximally. Distally it gives off a PLV branch. PDA does not seem to come off this vessel. Minor irregularities. No significant disease and unchanged compared to the previous angiogram from 02/06/2020. LEFT MAIN CORONARY ARTERY: Short patent disease-free vessel that bifurcates into LAD and circumflex. LEFT ANTERIOR DESCENDING CORONARY ARTERY: Good caliber vessel extends along the anterior wall, it supplies a sizable amount of myocardium. Distally, it curves over the apex and the stented segment is widely patent with brisk flow and distal LAD is diffusely diseased, but the vessel is widely patent in the stented segment has no compromise whatsoever. There are smaller septal and diagonal branches which are free of significant disease. LEFT POSTERIOR CIRCUMFLEX CORONARY ARTERY: Technically a dominant vessel very tortuous in the proximal portion. I obtained multiple angiograms to assess this tortuous area, but there is no significant disease. Distally the vessel bifurcates into PDA, which is a good caliber vessel and a smaller PLV has minor irregularities, no significant disease. LEFT VENTRICULOGRAM: This was performed in 30-degree JACINTO projection, revealed left ventricle was of normal size with good systolic function. Ejection fraction is about 50% with mild anteroapical distal hypokinesia. FINAL IMPRESSION: This patient has a left dominant system. No significant disease in the circumflex or RCA, LAD is widely patent at the site of previous stenting in the distal 1/4 of the vessel. No significant obstructive coronary artery disease is noted. There was no gradient across aortic valve and ejection fraction is about 50% with mild anteroapical hypokinesia. RECOMMENDATIONS: Findings were discussed with the patient and her . I do not have a good explanation for her troponin rise. Possibility of myocardial infarction without obstructive CAD should be considered. We will pursue current dual antiplatelet therapy and other medications and see how she does and hopefully if she remains stable, she may be discharged tomorrow. Ejection fraction has shown a significant improvement compared to January. These findings and details were discussed with the patient and . She was sent to [facility] in a stable condition. MMODL / IJN: [id number] /
--- NOTE | 2020-04-07 08:44 | P.PN ---
Subjective This is a pleasant 54 female past medical history significant for coronary artery disease status post PCI in the setting of an acute ST elevated myocardial infarction January 2020, asthma, hypertension, dyslipidemia and obesity. She underwent cardiac catheterization via the right femoral artery with Dr. Freire yesterday revealing no significant obstructive disease in the circumflex, LAD or RCA. She had a patent stent in the LAD with an ejection fraction of approximately 50%. Currently maintained on Lopressor 12.5 mg twice a day, losartan 25 mg daily, Plavix 75 mg daily, atorvastatin 80 mg daily and aspirin 81 mg daily. She seen and examined resting comfortably in bed in no acute distress. She hasn't symptoms of chest pain, shortness of breath, dizziness or palpitations. Right femoral access site is clean, dry and intact with no evidence of hematoma or ecchymosis. Distal pulses intact. She has been up ambulating without difficulty. Blood pressure 127/75 heart rate 67 afebrile maintaining oxygen saturation on room air. GENERAL: Well-appearing, well-nourished and in no acute distress. NECK: Supple without JVD or thyromegaly. LUNGS: Breath sounds clear to auscultation bilaterally. Respiration equal and unlabored. No wheezes, rales or rhonchi. HEART: Regular rate and rhythm without murmurs, rubs or gallops. S1 and S2 heard. EXTREMITIES: Normal range of motion, no edema. No clubbing or cyanosis. Peripheral pulses intact. Right femoral access site soft, non-tender, painless, no ecchymosis or hematoma. ASSESSMENT Acute non-ST elevated myocardial infarction History of coronary artery disease in the setting of an acute ST elevated myocardial infarction status post PCI of the LAD January 2020 Ischemic cardiomyopathy Hypertension Dyslipidemia Obesity, BMI 45 PLAN Clinically stable on current regimen. May be discharged home from a cardiac perspective, follow up in the office with Dr. Freire in 1-week. Appointment has been made. Importance of dual anti-platelet therapy discussed with the patient. Nurse Practitioner note has been reviewed, I agree with a documented findings and plan of care. Patient was seen and examined. Objective - Vital Signs Vital signs: Vital Signs Temp 99.0 F 04/07/20 05:00 Pulse 67 04/07/20 05:00 Resp 18 04/07/20 05:00 BP 127/75 04/07/20 05:00 Pulse Ox 96 04/07/20 05:00 Intake & Output 04/06/20 04/07/20 04/07/20 18:59 06:59 18:59 Intake Total 200 850 Balance 200 850 Intake: IV 200 150 Sodium Chloride 0.9% 1, 150 150 000 ml @ 75 mls/hr IV . [id number] JEANNE Rx#:[id number] Oral 700 Other: # Voids 2 - Labs CBC & Chem 7: 04/07/20 03:37 04/06/20 18:05 Labs: Abnormal Lab Results - Last 24 Hours (Table) 04/06/20 Range/Units 08:54 Troponin I 2.890 H* (0.000-0.034) ng/mL
[2020-04-07 09:13] LABS: Basophils # (A) 0.1 k/uL (0-0.2); Basophils % (A) 1 %; Eosinophils # (A) 0.2 k/uL (0-0.7); Eosinophils % (A) 3 %; HCT 42.5 % (34.0-46.0); HGB 13.7 gm/dL (11.4-16.0); Lymphocytes # (A) 2.3 k/uL (1.0-4.8); Lymphocytes % (A) 28 %; MCH 30.1 pg (25.0-35.0); MCHC 32.3 g/dL (31.0-37.0); MCV 93.2 fL (80.0-100.0); Mean Platelet Volume 8.3; Monocytes # (A) 0.3 k/uL (0-1.0); Monocytes % (A) 4 %; Neutrophils # (A) 5.3 k/uL (1.3-7.7); Neutrophils % (A) 64 %; Platelet Count 201 k/uL (150-450); RBC 4.56 m/uL (3.80-5.40); RDW 13.3 % (11.5-15.5); WBC 8.3 k/uL (3.8-10.6)
[2020-04-07] MEDS: FAMOTIDINE 20 MG TAB PO SCH (09:23)
[2020-04-07] MEDS: METOPROLOL TARTRATE 12.5 MG TAB PO SCH ×2 (09:24→21:49)
[2020-04-07] MEDS: MAGNESIUM OXIDE 400 MG TAB PO SCH (09:24)
[2020-04-07] MEDS: ASPIRIN 81 MG PO SCH (09:25)
[2020-04-07] MEDS: LOSARTAN 25 MG TAB PO SCH (09:25)
[2020-04-07] MEDS: HEPARIN SODIUM,PORCINE 5,000 UNIT/ML 1 ML VIAL SQ SCH ×2 (09:25→21:49)
[2020-04-07] MEDS: CLOPIDOGREL 75 MG TAB PO SCH (09:25)
[2020-04-07 09:26] LABS: African American GFR (CKD) >90 (>60 ml/min/1.73 sqM); Anion Gap 9 mmol/L; Blood Urea Nitrogen 10 mg/dL (7-17); Calcium 8.8 mg/dL (8.4-10.2); Carbon Dioxide 26 mmol/L (22-30); Chloride 106 mmol/L (98-107); Glucose 151 mg/dL (74-99); Magnesium 1.7 mg/dL (1.6-2.3); Non-African American GFR(CKD) >90 (>60 ml/min/1.73 sqM); Potassium 3.8 mmol/L (3.5-5.1); Sodium 141 mmol/L (137-145)
[2020-04-07] MEDS: FLUTICASONE 110 MCG INHALER INHALATION SCH ×2 (10:22→20:56)
--- NOTE | 2020-04-07 10:28 | P.PN ---
Subjective Progress Note Date: 04/07/20 54-year-old female one of Dr. Cleary's patient with past medical history of CAD post HI in January 2020 with the PCI and stent placement of the distal part of the LAD done successfully after presentation to the emergency department with ST HI. Patient presented to the emergency department on 04/05/2020 complaining of midsternal chest pain as a new onset lasted for about 15-20 minutes appears to arrival to the emergency department with significant shortness of breath mild nausea with no vomiting mild cold sweat and palpitation, her symptoms started watch his helping her to clean the pool and help with a cover on according to her did not exert herself more than 15-20 minutes of the time before the symptoms started, continue having symptoms until she came to the emergency department after first and second nitro his symptoms start getting slightly but better.. First troponin came back negative patient had no significant abnormality in her EKG. Patient was started on heparin drip but beta aries and admitted to the hospital serial CK with troponin will be done repeat EKG and consult cardiology. 04/07: Patient underwent cardiac catheterization with Dr. MARCI Freire yesterday revealing no significant obstructive disease in the circumflex, LAD or RCA. She had a patent stent in the LAD with an ejection fraction of approximately 50%. Patient denies having any chest pain, shortness of breath, dizziness, lightheadedness, palpitations. Right groin shows no hematoma or bleeding. She has been up ambulating without difficulty. Blood pressure 127/75, heart rate 67, afebrile, pulse ox 96% on room air. Patient is to be monitored and plan for discharge within 24 hours. Objective - Vital Signs Vital signs: Vital Signs Temp 99.0 F 04/07/20 05:00 Pulse 67 04/07/20 05:00 Resp 18 04/07/20 05:00 BP 127/75 04/07/20 05:00 Pulse Ox 96 04/07/20 05:00 Intake & Output 04/06/20 04/07/20 04/07/20 18:59 06:59 18:59 Intake Total 200 850 Balance 200 850 Intake: IV 200 150 Sodium Chloride 0.9% 1, 150 150 000 ml @ 75 mls/hr IV . [id number] JEANNE Rx#:[id number] Oral 700 Other: # Voids 2 - Exam Review of Systems CONSTITUTIONAL: Well-developed no acute respiratory distress. Denies fever, denies chills. EYES: No icterus sclerae, no conjunctivitis. EARS, NOSE, MOUTH, THROAT, and FACE: No sore throat, lymphadenopathy, carotid bruits or deformity. RESPIRATORY: Positive shortness of breath and history of asthma. CARDIOVASCULAR: Positive chest pain and angina. GASTROINTESTINAL: No Abd pain, Nausea or vomiting, no Diarrhea or constipation, No GI Bleed, no distention or masses. GENITOURINARY: Negative for Hematuria or UTI, no kidney stones. INTEGUMENT/BREAST: Negative for any muscular injury with mild osteoarthritis.. HEMATOLOGIC/LYMPHATIC: Negative for bleed or purpura. MUSCULOSKELTAL: Negative for Myalgia or arthralgia. NEURLOGICAL: No LOC, Sz or syncope, blurred vision dizziness or abnormality.. BEHAVIORAL/PSYCH: Negative. ENDOCRINE: Negative. General Appearance: Alert, cooperative, no distress, appears stated age. Significantly overweight. Neck HEENT: Supple, no lymphadenopathy, no thyroid enlargement, no carotid bruits. Lungs: Decreased breath sounds bilaterally with fine rhonchi no crackles or wheezes. Chest Wall: Decrease expansion with deep inspiration no tenderness and no deformity was found on exam, no costochondral pain or discomfort. Heart: Regular rate and rhythm, S1, S2 normal, no murmur, rub or gallop. Back: Symmetric, no curvature, ROM normal, no CVA tenderness. Abdomen: Soft, non-tender, bowel sounds active all four quadrants, no masses, no organomegaly. Extremities: Extremities normal, atraumatic, no cyanosis or edema. Right groin with no hematoma, ecchymosis, bleeding. Pulses: 2+ and symmetric. Skin: Skin color, texture, tugor normal, no rashes or lesions. Neurologic: Alert oriented x3 cranial nerves II through XII intact, no motor deficit, no abnormal balance or gait. - Labs CBC & Chem 7: 04/07/20 08:42 04/07/20 08:42 Labs: Abnormal Lab Results - Last 24 Hours (Table) 04/06/20 Range/Units 08:54 Troponin I 2.890 H* (0.000-0.034) ng/mL Assessment and Plan Plan: 1 non-ST elevated myocardial infarction with no obstructive disease found on heart catheterization, patent stent. 2 history of CAD post PCI and stent placement of the distal LAD 3 month ago patient had similar presentation this time despite a secondary prevention has been on since last admission. 3 ischemic cardiomyopathy 4 hyperlipidemia: Remain on atorvastatin 80 mg a day. 5 hypertension: On Cozaar 25 mg a day and Lopressor 12.5 mg daily. 6 history of asthma, moderate intermittent: Remain on Ventolin and Qvar. 7 GI prophylaxis: Patient will be on Pepcid 20 mg daily. 8 DVT prophylaxis. Early ambulation. CODE STATUS: Full code. Discharge plan: home within 24 hours. Impression and plan of care have been directed as dictated by the signing physician. Jocelynn Huggins nurse practitioner acting as scribe for signing physician.
--- NOTE | 2020-04-07 11:56 | PN ---
PROGRESS NOTE DATE OF SERVICE: 04/07/2020 Mrs Wan came in with a non-ST elevation [place]. I performed a cardiac cath yesterday. I have reviewed the angiograms multiple times. There is a tortuous circumflex proximally, but no significant lesion is noted. The previously stented RCA is widely patent. The patient post cardiac cath had an episode of chest pain, but no new significant EKG changes. I am unable to explain the troponin rise. Her D-dimer was normal, stented segment is patent. I will increase activity today. Vital signs are stable. She is asymptomatic. No JVD, S1-S2 heard normally. Lungs are clear. Abdomen and lower extremity exam unchanged. She had some PVCs yesterday in the afternoon. I am recommending that we continue her current medical regimen. We will discontinue amiodarone, check a CBC, BMP, magnesium and troponin and perform an EKG. If she remains stable, she may be discharged later this evening. I will check and see how she is doing again after obtaining the above laboratory data. MMODL / IJN: [id number] /
--- NOTE | 2020-04-07 14:02 | PN ---
PROGRESS NOTE I re-evaluated Mrs. Wan. I reviewed her films again. I compared the images from January of this year to films from yesterday. The high obtuse marginal branch that comes off from the circumflex divides into 2 branches and both of these branches seem to have a sluggish flow and may have a spontaneous dissection in them. The branches are small, less than 1.5 mm, but they are long and both of them supply a limited amount of myocardium. These arteries appear to have a spontaneous coronary dissection and may have been the culprit lesions. The patient's troponin has gone up to 8 and she had a 4 5-beat run of PVCs, but she is comfortable resting without symptoms. EKG does not reveal any acute changes. I discussed my thoughts in detail with the patient. Will continue dual antiplatelet therapy as well as statin therapy and I will keep her one more day and probably discharge her tomorrow. I again explained to the patient in detail what my thoughts were and that this small branch I did not feel was significant yesterday, but on reviewing the images, this could be the culprit lesion that explains her troponin elevation. I will await the results of echocardiogram as well. Discussed my thoughts in detail with the patient. MMODL / IJN: [id number] /
[2020-04-07] MEDS: ATORVASTATIN 80 MG TAB PO SCH (21:49)
[2020-04-08] MEDS: FAMOTIDINE 20 MG TAB PO SCH (08:14)
[2020-04-08] MEDS: CLOPIDOGREL 75 MG TAB PO SCH (08:14)
[2020-04-08] MEDS: HEPARIN SODIUM,PORCINE 5,000 UNIT/ML 1 ML VIAL SQ SCH (08:14)
[2020-04-08] MEDS: MAGNESIUM OXIDE 400 MG TAB PO SCH (08:16)
[2020-04-08] MEDS: ASPIRIN 81 MG PO SCH (08:16)
[2020-04-08] MEDS: METOPROLOL TARTRATE 12.5 MG TAB PO SCH (08:18)
[2020-04-08] MEDS: FLUTICASONE 110 MCG INHALER INHALATION SCH (08:21)
[2020-04-08] MEDS: LOSARTAN 25 MG TAB PO SCH (08:21)
[2020-04-08 08:35] LABS: Basophils # (A) 0.1 k/uL (0-0.2); Basophils % (A) 1 %; Eosinophils # (A) 0.4 k/uL (0-0.7); Eosinophils % (A) 5 %; HCT 41.9 % (34.0-46.0); HGB 13.8 gm/dL (11.4-16.0); Lymphocytes # (A) 2.8 k/uL (1.0-4.8); Lymphocytes % (A) 36 %; MCH 30.1 pg (25.0-35.0); MCHC 32.9 g/dL (31.0-37.0); MCV 91.5 fL (80.0-100.0); Mean Platelet Volume 8.4; Monocytes # (A) 0.4 k/uL (0-1.0); Monocytes % (A) 5 %; Neutrophils # (A) 4.1 k/uL (1.3-7.7); Neutrophils % (A) 52 %; Platelet Count 203 k/uL (150-450); RBC 4.58 m/uL (3.80-5.40); RDW 13.4 % (11.5-15.5); WBC 7.8 k/uL (3.8-10.6)
[2020-04-08 08:44] LABS: African American GFR (CKD) >90 (>60 ml/min/1.73 sqM); Anion Gap 5 mmol/L; Blood Urea Nitrogen 12 mg/dL (7-17); Carbon Dioxide 29 mmol/L (22-30); Chloride 106 mmol/L (98-107); Glucose 88 mg/dL (74-99); Non-African American GFR(CKD) >90 (>60 ml/min/1.73 sqM); Potassium 4.2 mmol/L (3.5-5.1); Sodium 140 mmol/L (137-145)
--- NOTE | 2020-04-08 08:44 | ECHOF ---
Referral Reason:LV function/non-stemi MEASUREMENTS -------- HEIGHT: 157.5 cm WEIGHT: 113.4 kg BP: 127/75 IVSd: 1.3 cm (0.6 - 1.1) LVIDd: 4.2 cm (3.9 - 5.3) LVPWd: 1.2 cm (0.6 - 1.1) IVSs: 1.6 cm LVIDs: 3.0 cm LVPWs: 1.9 cm RVIDd: 3.8 cm (< 3.3) LAESV Index (A-L): 35.97 ml/m Ao Diam: 3.2 cm (2.0 - 3.7) AV Cusp: 2.2 cm (1.5 - 2.6) EPSS: 0.7 cm MV E Francisco: 1.17 m/s MV DecT: 260 ms MV A Francisco: 0.79 m/s MV E/A Ratio: 1.49 RAP: 5.00 mmHg RVSP: 26.20 mmHg MV EF SLOPE: 74.14 mm/s (70 - 150) MV EXCURSION: 12.36 mm (> 18.000) FINDINGS -------- Sinus rhythm. This was a technically adequate study. There is mild concentric left ventricular hypertrophy. Overall left ventricular systolic function i s mildly impaired with, an EF between 45 - 50 %. The diastolic filling pattern is normal for the ag e of the patient 12.83. Mid anterior LV wall motion is hypokinetic. Apical lateral LV wall motio n is hypokinetic. The right ventricle is mild to moderately enlarged. LA is moderately dilated 34-39 ml/m2 The right atrium is mildly enlarged. Interatrial and interventricular septum intact. There is no evidence of aortic regurgitation. There is no evidence of aortic stenosis. [id number]-[id number] mitral regurgitation is present. Mild tricuspid regurgitation present. There is no evidence of pulmonary hypertension. The right v entricular systolic pressure, as measured by Doppler, is 26.20mmHg. There is no pulmonic regurgitation present. The aortic root size is normal. Normal inferior vena cava with normal inspiratory collapse consistent with estimated right atrial pre ssure of 5 mmHg. There is no pericardial effusion. CONCLUSIONS -------- 1. Sinus rhythm. 2. This was a technically adequate study. 3. There is mild concentric left ventricular hypertrophy. 4. Overall left ventricular systolic function is mildly impaired with, an EF between 45 - 50 %. 5. The diastolic filling pattern is normal for the age of the patient 12.83 6. Mid anterior LV wall motion is hypokinetic. 7. The right ventricle is mild to moderately enlarged. 8. LA is moderately dilated 34-39 ml/m2 9. The right atrium is mildly enlarged. 10. Interatrial and interventricular septum intact. 11. There is no evidence of aortic regurgitation. 12. There is no evidence of aortic stenosis. 13. Ugsf-xg-pkilhbev mitral regurgitation is present. 14. Mild tricuspid regurgitation present. 15. There is no evidence of pulmonary hypertension. 16. The right ventricular systolic pressure, as measured by Doppler, is 26.20mmHg. 17. There is no pulmonic regurgitation present. 18. The aortic root size is normal. 19. Normal inferior vena cava with normal inspiratory collapse consistent with estimated right atrial pressure of 5 mmHg. 20. There is no pericardial effusion. DATA INTEGRITY CONSULTANT: Andria Voss RDCS
[2020-04-08 12:07] VITALS: BP 127/50; PULSE 51; RESP 17; TEMP 98.4
--- NOTE | 2020-04-08 13:37 | PN ---
PROGRESS NOTE Mrs. Wan is doing very well today. No chest pain, shortness of breath or palpitations. No arrhythmia on the monitor. Blood pressure is about 118/70, pulse rate is 66 per minute, no JVD. S1-S2 heard normally. Lungs are clear. Abdomen and lower extremity exam is unchanged. Central nervous system normal. Right groin is clean and dry. 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 LAD also had a similar situation in January for which she had stenting and that area was patent. I am recommending that she can be discharged without strenuous activity at home. Advised to go for a walk 15 minutes in the morning and evening and not to do any other strenuous activity and to be compliant with medications. Discharge instructions were given. I will see the patient in the office on April 19Sunday at 8:45 am. She will call me if she has further questions. I have reviewed all the medications with her. MMODL / IJN: [id number] /
--- NOTE | 2020-04-08 14:53 | P.DS ---
Providers Date of admission: 04/06/20 13:22 Expected date of discharge: 04/08/20 Attending physician: Gordon Adrian Consults: 04/05/20 23:24 Consult Physician Urgent Consulting Provider: Harry Gu Consult Reason/Comments: ua Do you want consulting provider notified?: Yes Primary care physician: Barbie Cleary [place] Hospital Course: 54-year-old female one of Dr. Cleary's patient with past medical history of CAD post MO in January 2020 with the PCI and stent placement of the distal part of the LAD done successfully after presentation to the emergency department with ST MO. Patient presented to the emergency department on 04/05/2020 complaining of midsternal chest pain as a new onset lasted for about 15-20 minutes appears to arrival to the emergency department with significant shortness of breath mild nausea with no vomiting mild cold sweat and palpitation, her symptoms started watch his helping her to clean the pool and help with a cover on according to her did not exert herself more than 15-20 minutes of the time before the symptoms started, continue having symptoms until she came to the emergency department after first and second nitro his symptoms start getting slightly but better.. First troponin came back negative patient had no significant abnormality in her EKG. Patient was started on heparin drip but beta aries and admitted to the hospital serial CK with troponin will be done repeat EKG and consult cardiology. 04/07: Patient underwent cardiac catheterization with Dr. MARCI Freire yesterday revealing no significant obstructive disease in the circumflex, LAD or RCA. She had a patent stent in the LAD with an ejection fraction of approximately 50%. Patient denies having any chest pain, shortness of breath, dizziness, lightheadedness, palpitations. Right groin shows no hematoma or bleeding. She has been up ambulating without difficulty. Blood pressure 127/75, heart rate 67, afebrile, pulse ox 96% on room air. Patient is to be monitored and plan for discharge within 24 hours. 04/08: Patient denies any new complaints overnight. She denies any chest pain or shortness of breath no palpitations. She has had no arrhythmias on monitor. V ital signs have been stable with a blood pressure 118/70 and heart rate of 66. She has been afebrile. Patient has been seen by cardiology this morning and cleared for discharge home. Patient will be discharged home today in stable condition. Discharge diagnoses: 1 non-ST elevated myocardial infarction with no obstructive disease found on heart catheterization, patent stent. 2 history of CAD post PCI and stent placement of the distal LAD 3 month ago 3 ischemic cardiomyopathy 4 hyperlipidemia 5 hypertension 6 history of asthma, moderate intermittent Discharge plan: home Impression and plan of care have been directed as dictated by the signing physician. Jocelynn Huggins nurse practitioner acting as scribe for signing physician. Patient Condition at Discharge: Good Plan - Discharge Summary Discharge Rx Participant: No New Discharge Prescriptions: New Aspirin 81 mg PO DAILY chew Magnesium Oxide [Mag-Ox] 400 mg PO DAILY tab Continue Albuterol Sulfate [Ventolin HFA] 2 puff INHALATION RT-QID PRN PRN Reason: Shortness Of Breath Beclomethasone Dip 80 Mcg/Puff [Qvar 80 mcg] 2 puff INHALATION RT-BID Losartan [Cozaar] 25 mg PO DAILY #30 tab Atorvastatin [Lipitor] 80 mg PO HS #30 tab Nitroglycerin Sl Tabs [Nitrostat] 0.4 mg SUBLINGUAL Q5M PRN #25 tab PRN Reason: Chest Pain Clopidogrel [Plavix] 75 mg PO DAILY #30 tab Metoprolol Tartrate [Lopressor] 12.5 mg PO BID Fluticasone Nasal [place] [Flonase Nasal [place]] 1 spray EA NOSTRIL DAILY Discharge Medication List Albuterol Sulfate [Ventolin HFA] 2 puff INHALATION RT-QID PRN 02/06/20 [History] Beclomethasone Dip 80 Mcg/Puff [Qvar 80 mcg] 2 puff INHALATION RT-BID 02/06/20 [History] Atorvastatin [Lipitor] 80 mg PO HS #30 tab 02/09/20 [Rx] Clopidogrel [Plavix] 75 mg PO DAILY #30 tab 02/09/20 [Rx] Losartan [Cozaar] 25 mg PO DAILY #30 tab 02/09/20 [Rx] Nitroglycerin Sl Tabs [Nitrostat] 0.4 mg SUBLINGUAL Q5M PRN #25 tab 02/09/20 [Rx] Fluticasone Nasal [place] [Flonase Nasal [place]] 1 spray EA NOSTRIL DAILY 04/06/20 [History] Metoprolol Tartrate [Lopressor] 12.5 mg PO BID 04/06/20 [History] Aspirin 81 mg PO DAILY chew 04/07/20 [Rx] Magnesium Oxide [Mag-Ox] 400 mg PO DAILY tab 04/07/20 [Rx] Follow up Appointment(s)/Referral(s): Bren Freire MD [STAFF PHYSICIAN] - 04/19/20 8:45 am Barbie Cleary MD [Primary Care Provider] - 1 Week (The office will call you with your appointment after looking over your information.) Patient Instructions/Handouts: Angina (DC), Heart Attack (DC), Heart Healthy Diet (DC) Activity/Diet/Wound Care/Special Instructions: Activity limited until follow up. No heavy lifting or strenuous activity. Ok to take mild walks 15-20 minutes twice daily. Follow heart healthy diet Discharge Disposition: HOME SELF-CARE
== END 2020-04-08 14:25 | disposition home or self-care (01) | DRG 281 ==
LOC: EC 20:04 → 3SCARD 23:24 → OBSVTOIN 04-06 13:22 → 5NMEDONC 04-06 14:49
PROVIDERS: ADMIT Internal Medicine Geriatric Medicine; ATTEND Internal Medicine Geriatric Medicine
PROC: B2111ZZ Fluoroscopy of Multiple Coronary Arteries using Low Osmolar Contrast (ICD-10-PCS; principal; 2020-04-06 15:50)
PROC: 4A023N7 Measurement of Cardiac Sampling and Pressure, Left Heart, Percutaneous Approach (ICD-10-PCS; principal; 2020-04-06 15:50)
DX: I21.4 Non-ST elevation (NSTEMI) myocardial infarction (principal); Z68.42 Body mass index [BMI] 45.0-49.9, adult; E78.5 Hyperlipidemia, unspecified; E66.9 Obesity, unspecified; I10 Essential (primary) hypertension; I25.5 Ischemic cardiomyopathy; I25.10 Atherosclerotic heart disease of native coronary artery without angina pectoris; J45.909 Unspecified asthma, uncomplicated; I48.91 Unspecified atrial fibrillation; Z11.59 Encounter for screening for other viral diseases; I49.3 Ventricular premature depolarization; Z79.02 Long term (current) use of antithrombotics/antiplatelets; Z79.82 Long term (current) use of aspirin; I25.2 Old myocardial infarction; Z79.899 Other long term (current) drug therapy; Z82.49 Family history of ischemic heart disease and other diseases of the circulatory system; Z83.3 Family history of diabetes mellitus; Z87.891 Personal history of nicotine dependence; Z95.5 Presence of coronary angioplasty implant and graft; Z98.891 History of uterine scar from previous surgery; Z98.890 Other specified postprocedural states
CPT/HCPCS: 36415; 71046; 80048; 80053; 80061; 82150; 83690; 83735; 84132; 84484; 85025; 85049; 85379; 85610; 85730; 87635; 93005; 93306; 93458; 96365; 96366; 96376; 99291

== ENCOUNTER → 2021-03-18 | Outpatient (CLI) | payer BC ==
--- NOTE | 2021-03-21 10:22 | MM ---
Reason for exam: screening (asymptomatic). Last mammogram was performed 1 year and 2 months ago. History: Patient is postmenopausal and has history of endometrial cancer at age 26. Physical Findings: A clinical breast exam by your physician is recommended on an annual basis and results should be correlated with mammographic findings. MG Screening Mammo w CAD Bilateral CC and MLO view(s) were taken. XCCL view(s) were taken of the left breast. Prior study comparison: January 07, 2020, bilateral MG screening mammo w CAD. July 03, 2018, bilateral MG screening mammo w CAD. There are scattered fibroglandular densities. Benign calcifications. No significant changes when compared with prior studies. ASSESSMENT: Benign, BI-RAD 2 RECOMMENDATION: Routine screening mammogram of both breasts in 1 year.
== END | disposition home or self-care (01) ==
LOC: RADMAMWWP 13:33
PROVIDERS: ATTEND Family Medicine
DX: Z12.31 Encounter for screening mammogram for malignant neoplasm of breast (principal); Z78.0 Asymptomatic menopausal state
CPT/HCPCS: 77067

== ENCOUNTER 2021-06-17 06:52 | Inpatient (IN) | payer BC ==
[2021-06-17] MEDS ORDERED: DILTIAZEM DRIP BOLUS FROM BAG 1 MG SOLN IV ONE (07:19)
--- NOTE | 2021-06-17 07:23 | ED ---
General Adult HPI - General Chief complaint: Arrhythmia/Palpitations Stated complaint: Palpitations Time Seen by Provider: 06/17/21 07:01 Source: patient, RN notes reviewed Mode of arrival: ambulatory Limitations: no limitations - History of Present Illness Initial comments: Patient is a pleasant 56-year-old female presenting to the emergency Department with palpitations. Symptoms have been intermittent over the past few days. Patient feels her heart is racing. No chest pain. Patient has had some minimal shortness of breath associated the last day or 2. No leg pain or leg swelling. Patient questions if she has history of similar symptoms previously however no previous diagnosis of arrhythmia. Patient does have history of previous coronary artery dissection twice, one time needing stenting. Patient also states that she had an episode approximately 12 days ago where she had difficulty speaking that just lasted for a second or 2. Symptoms then resolved and patient has been symptom-free since that time. No headache or extremity weakness. - Related Data Home Medications Medication Instructions Recorded Confirmed Beclomethasone Dip 80 Mcg/Puff 2 puff INHALATION RT-BID 02/06/20 06/17/21 [Qvar 80 mcg] Metoprolol Tartrate [Lopressor] 12.5 mg PO BID 04/06/20 06/17/21 Losartan [Cozaar] 50 mg PO DAILY 06/17/21 06/17/21 Previous Rx's Medication Instructions Recorded Atorvastatin [Lipitor] 80 mg PO HS #30 tab 02/09/20 Clopidogrel [Plavix] 75 mg PO DAILY #30 tab 02/09/20 Nitroglycerin Sl Tabs [Nitrostat] 0.4 mg SUBLINGUAL Q5M PRN #25 tab 02/09/20 Aspirin 81 mg PO DAILY chew 04/07/20 Magnesium Oxide [Mag-Ox] 400 mg PO DAILY tab 04/07/20 Allergies Allergy/AdvReac Type Severity Reaction Status Date / Time No Known Allergies Allergy Verified 06/17/21 08:22 Review of Systems ROS Statement: Those systems with pertinent positive or pertinent negative responses have been documented in the HPI. ROS Other: All systems not noted in ROS Statement are negative. Constitutional: Denies: fever Eyes: Denies: eye pain ENT: Denies: ear pain Respiratory: Reports: dyspnea. Denies: cough Cardiovascular: Reports: palpitations. Denies: chest pain Endocrine: Denies: fatigue Gastrointestinal: Denies: abdominal pain Genitourinary: Denies: dysuria Musculoskeletal: Denies: back pain Skin: Denies: rash Neurological: Reports: as per HPI. Denies: weakness Past Medical History Past Medical History: Asthma, Myocardial Infarction ([place]) Additional Past Medical History / Comment(s): eye disorder: arteria tortuosity, SKAD Last Myocardial Infarction Date:: 02/06/20 History of Any Multi-Drug Resistant Organisms: None Reported Past Surgical History: Section Additional Past Surgical History / Comment(s): heart cath with stent x1 02/06/[address] Freire Past Anesthesia/Blood Transfusion Reactions: No Reported Reaction Past Psychological History: No Psychological Hx Reported Smoking Status: Never smoker Past Alcohol Use History: None Reported Past Drug Use History: None Reported - Past Family History Father Family Medical History: Diabetes Mellitus, Hypertension Additional Family Medical History / Comment(s): diet controlled DM General Exam Limitations: no limitations General appearance: alert, in no apparent distress Head exam: Present: normocephalic Eye exam: Present: normal appearance, PERRL Neck exam: Present: normal inspection Respiratory exam: Present: normal lung sounds bilaterally Cardiovascular Exam: Present: tachycardia, irregular rhythm GI/Abdominal exam: Present: soft. Absent: tenderness Extremities exam: Present: normal inspection Neurological exam: Present: alert, oriented X3, CN II-XII intact. Absent: motor sensory deficit Expanded Patient oriented to: Present: person, place, time Cranial nerves: EOM's Intact: Normal Sensory exam: Upper Extremity Light Touch: Normal, Lower Extremity Light Touch: Normal Motor strength exam: RUE: 5, LUE: 5, RLE: 5, LLE: 5 Eye Response: (4) open spontaneously Motor Response: (6) obeys commands Verbal Response: (5) oriented Psychiatric exam: Present: normal affect, normal mood Skin exam: Present: normal color Course Vital Signs 06/17/21 06/17/21 06/17/21 06:57 07:51 08:27 Temperature 97.6 F Pulse Rate 67 153 H 133 H Respiratory 19 18 18 Rate Blood Pressure 137/115 135/105 129/91 O2 Sat by Pulse 99 96 95 Oximetry EKG Findings - EKG Comments: EKG Findings:: A. fib with RVR, rate 157. QRS 82. QT to 52. QTC 407. Normal axis. Poor R-wave progression. Low QRS voltage. No acute ST change. Medical Decision Making - Medical Decision Making Patient reevaluated and resting comfortably in bed. Heart rate is around 1:30. Patient family updated on results and plan. Case discussed in detail with Dr. Hidlago, covering for Dr. Cleary, who will admit. Cardiology will be placed on consult. Heparinization will be deferred to cardiology evaluation secondary to history of coronary artery dissection. - Lab Data Result diagrams: 06/17/21 07:31 06/17/21 07:31 Lab Results 06/17/21 06/17/21 06/17/21 Range/Units 07:31 07:31 07:31 WBC 12.3 H (3.8-10.6) k/uL RBC 4.41 (3.80-5.40) m/uL Hgb 13.7 (11.4-16.0) gm/dL Hct 41.0 (34.0-46.0) % MCV 92.8 (80.0-100.0) fL MCH 31.1 (25.0-35.0) pg MCHC 33.5 (31.0-37.0) g/dL RDW 14.0 (11.5-15.5) % Plt Count 215 (150-450) k/uL MPV 8.3 Neutrophils % 77 % Lymphocytes % 18 % Monocytes % 3 % Eosinophils % 1 % Basophils % 1 % Neutrophils # 9.4 H (1.3-7.7) k/uL Lymphocytes # 2.3 (1.0-4.8) k/uL Monocytes # 0.3 (0-1.0) k/uL Eosinophils # 0.1 (0-0.7) k/uL Basophils # 0.1 (0-0.2) k/uL PT 10.7 (9.0-12.0) sec INR 1.0 (<1.2) APTT 22.5 (22.0-30.0) sec Sodium 140 (137-145) mmol/L Potassium 4.1 (3.5-5.1) mmol/L Chloride 112 H (98-107) mmol/L Carbon Dioxide 18 L (22-30) mmol/L Anion Gap 10 mmol/L BUN 17 (7-17) mg/dL Creatinine 0.65 (0.52-1.04) mg/dL Est GFR (CKD-EPI)AfAm >90 (>60 ml/min/1.73 sqM) Est GFR (CKD-EPI)NonAf >90 (>60 ml/min/1.73 sqM) Glucose 136 H (74-99) mg/dL Calcium 9.2 (8.4-10.2) mg/dL Magnesium 1.8 (1.6-2.3) mg/dL Total Bilirubin 0.9 (0.2-1.3) mg/dL AST 52 H (14-36) U/L ALT 70 H (4-34) U/L Alkaline Phosphatase 52 (38-126) U/L Troponin I (0.000-0.034) ng/mL Total Protein 6.3 (6.3-8.2) g/dL Albumin 3.7 (3.5-5.0) g/dL TSH 2.250 (0.465-4.680) mIU/L 06/17/21 Range/Units 07:31 WBC (3.8-10.6) k/uL RBC (3.80-5.40) m/uL Hgb (11.4-16.0) gm/dL Hct (34.0-46.0) % MCV (80.0-100.0) fL MCH (25.0-35.0) pg MCHC (31.0-37.0) g/dL RDW (11.5-15.5) % Plt Count (150-450) k/uL MPV Neutrophils % % Lymphocytes % % Monocytes % % Eosinophils % % Basophils % % Neutrophils # (1.3-7.7) k/uL Lymphocytes # (1.0-4.8) k/uL Monocytes # (0-1.0) k/uL Eosinophils # (0-0.7) k/uL Basophils # (0-0.2) k/uL PT (9.0-12.0) sec INR (<1.2) APTT (22.0-30.0) sec Sodium (137-145) mmol/L Potassium (3.5-5.1) mmol/L Chloride (98-107) mmol/L Carbon Dioxide (22-30) mmol/L Anion Gap mmol/L BUN (7-17) mg/dL Creatinine (0.52-1.04) mg/dL Est GFR (CKD-EPI)AfAm (>60 ml/min/1.73 sqM) Est GFR (CKD-EPI)NonAf (>60 ml/min/1.73 sqM) Glucose (74-99) mg/dL Calcium (8.4-10.2) mg/dL Magnesium (1.6-2.3) mg/dL Total Bilirubin (0.2-1.3) mg/dL AST (14-36) U/L ALT (4-34) U/L Alkaline Phosphatase (38-126) U/L Troponin I <0.012 (0.000-0.034) ng/mL Total Protein (6.3-8.2) g/dL Albumin (3.5-5.0) g/dL TSH (0.465-4.680) mIU/L - Radiology Data Radiology results: report reviewed (Computed tomography scan of brain shows moderate patchy burden of chronic small vessel ischemia. No acute abnormality.), image reviewed (Two-view chest x-ray does have some concern for developing CHF and pulmonary vascular congestion. Diffuse interstitial density along with curly B-lines.) Critical Care Time Critical Care Time: Yes Total Critical Care Time: 34 Disposition Clinical Impression: Atrial fibrillation with RVR, CHF (congestive heart failure), TIA (transient ischemic attack) Disposition: ADMITTED IP TO THIS HOSP Condition: Serious Is patient prescribed a controlled substance at d/c from ED?: No Referrals: Barbie Cleary MD [Primary Care Provider] - 1-2 days Decision Time: 08:44
[2021-06-17] MEDS ORDERED: DILTIAZEM 125 MG in SODIUM CHLORIDE 0.9% 100 ML IV SCH (07:30)
[2021-06-17 07:40] LABS: Basophils # (A) 0.1 k/uL (0-0.2); Basophils % (A) 1 %; Eosinophils # (A) 0.1 k/uL (0-0.7); Eosinophils % (A) 1 %; HGB 13.7 gm/dL (11.4-16.0); Lymphocytes # (A) 2.3 k/uL (1.0-4.8); Lymphocytes % (A) 18 %; MCH 31.1 pg (25.0-35.0); MCHC 33.5 g/dL (31.0-37.0); MCV 92.8 fL (80.0-100.0); Mean Platelet Volume 8.3; Monocytes # (A) 0.3 k/uL (0-1.0); Monocytes % (A) 3 %; Neutrophils # (A) 9.4 k/uL (1.3-7.7); Neutrophils % (A) 77 %; Platelet Count 215 k/uL (150-450); RBC 4.41 m/uL (3.80-5.40); WBC 12.3 k/uL (3.8-10.6)
[2021-06-17 07:48] LABS: Partial Thromboplastin Time 22.5 sec (22.0-30.0); Prothrombin Time 10.7 sec (9.0-12.0)
[2021-06-17 08:06] LABS: ALT 70 U/L (4-34); AST 52 U/L (14-36); African American GFR (CKD) >90 (>60 ml/min/1.73 sqM); Albumin 3.7 g/dL (3.5-5.0); Alkaline Phosphatase 52 U/L (38-126); Anion Gap 10 mmol/L; Blood Urea Nitrogen 17 mg/dL (7-17); Calcium 9.2 mg/dL (8.4-10.2); Carbon Dioxide 18 mmol/L (22-30); Chloride 112 mmol/L (98-107); Glucose 136 mg/dL (74-99); Magnesium 1.8 mg/dL (1.6-2.3); Non-African American GFR(CKD) >90 (>60 ml/min/1.73 sqM); Potassium 4.1 mmol/L (3.5-5.1); Sodium 140 mmol/L (137-145); Total Bilirubin 0.9 mg/dL (0.2-1.3); Total Protein 6.3 g/dL (6.3-8.2)
--- NOTE | 2021-06-17 08:20 | CT ---
EXAMINATION TYPE: CT brain wo con DATE OF EXAM: 06/17/2021 COMPARISON: None HISTORY: 56-year-old female with expressive aphasia TECHNIQUE: Examination was done in axial plane without intravenous contrast. Coronal and sagittal r econstructions performed. CT DLP: 1099.4 mGycm Automated exposure control for dose reduction was used. FINDINGS: There is no evidence of acute intracranial hemorrhage, acute ischemic changes, mass, mass-effect, or extra-axial fluid collection. There is no effacement of cerebral sulci or basal subarachnoid cister ns. There is no hydrocephalus. There is no midline shift. Weston-white matter distinction is preserv ed. Partially empty sella. Incidental 3 mm of cerebellar tonsillar ectopia. Moderate patchy white matter hypodensities in both cerebral hemispheres. Leftward nasal septal deviation. Mild mucosal thickening ethmoid air cells. Mastoid air cells well pn eumatized. Orbits and globes are intact. IMPRESSION: 1. Moderate patchy burden of chronic small vessel ischemic disease. No acute intracranial abnormality seen. If symptoms persist or concern for subtle acute ischemia, follow-up MRI. 2. Benign cerebellar tonsillar ectopia of 3 mm incidentally seen.
--- NOTE | 2021-06-17 08:30 | XR ---
EXAMINATION TYPE: XR chest 2V DATE OF EXAM: 06/17/2021 COMPARISON: 04/05/2020 HISTORY: 56-year-old female with dysrhythmia TECHNIQUE: PA and lateral views FINDINGS: Heart borderline in size. Diffuse interstitial opacity. Some Argenis B lines are noted. No sizable eff usion. No leanne consolidation. IMPRESSION: Diffuse interstitial density along with Argenis B lines. Correlate for developing CHF and pulmonary va scular congestion.
[2021-06-17] MEDS ORDERED: ASPIRIN 325 MG TAB PO STA (08:45)
[2021-06-17] MEDS: FUROSEMIDE 10 MG/ML 4 ML VIAL IV SCH ×2 (09:46→20:08)
--- NOTE | 2021-06-17 11:00 | ECHOF ---
Referral Reason:Heart Failure MEASUREMENTS -------- HEIGHT: 154.9 cm WEIGHT: 116.6 kg BP: 129/91 RVIDd: 3.1 cm (< 3.3) IVSd: 1.2 cm (0.6 - 1.1) LVIDd: 4.3 cm (3.9 - 5.3) LVPWd: 1.3 cm (0.6 - 1.1) IVSs: 1.7 cm LVIDs: 3.2 cm LVPWs: 1.7 cm LA Diam: 4.1 cm (2.7 - 3.8) LAESV Index (A-L): 30.42 ml/m Ao Diam: 3.1 cm (2.0 - 3.7) AV Cusp: 1.8 cm (1.5 - 2.6) MV EXCURSION: 14.577 mm (> 18.000) MV EF SLOPE: 62 mm/s (70 - 150) EPSS: 1.0 cm RAP: 15.00 mmHg RVSP: 36.90 mmHg FINDINGS -------- Atrial fibrillation. This was a technically adequate study. The left ventricular size is normal. There is mild concentric left ventricular hypertrophy. Overa ll left ventricular systolic function is moderate-severely impaired with, an EF between 30 - 35 %. Basal inferior LV wall motion is hypokinetic. Basal inferoseptal LV wall motion is hypokinetic. Mid inferior LV wall motion is hypokinetic. Mid inferoseptal LV wall motion is hypokinetic. Ap ical inferior LV wall motion is hypokinetic. The right ventricle is normal in size. LA is midly dilated 29-33ml/m2. The right atrial size is normal. Interatrial and interventricular septum intact. The aortic valve is trileaflet and appears structurally normal. Trace to mild aortic regurgitation. The mitral valve is normal. Moderate mitral regurgitation is present. The tricuspid valve appears structurally normal. Mild tricuspid regurgitation present. There is m ild pulmonary hypertension. The right ventricular systolic pressure, as measured by Doppler, is 36. 90mmHg. The pulmonic valve was not well visualized. The aortic root size is normal. The inferior vena cava is dilated with poor inspiratory collapse which is consistent with estimated r ight atrial pressure o 15 mmHg. There is no pericardial effusion. CONCLUSIONS -------- 1. Atrial fibrillation. 2. There is mild concentric left ventricular hypertrophy. 3. Overall left ventricular systolic function is moderate-severely impaired with, an EF between 30 - 35 %. 4. Basal inferior LV wall motion is hypokinetic. 5. Basal inferoseptal LV wall motion is hypokinetic. 6. Mid inferior LV wall motion is hypokinetic. 7. Mid inferoseptal LV wall motion is hypokinetic. 8. Apical inferior LV wall motion is hypokinetic. 9. LA is midly dilated 29-33ml/m2. 10. Trace to mild aortic regurgitation. 11. Moderate mitral regurgitation is present. 12. Mild tricuspid regurgitation present. 13. There is mild pulmonary hypertension. 14. The inferior vena cava is dilated with poor inspiratory collapse which is consistent with estimat ed right atrial pressure o 15 mmHg. 15. There is no pericardial effusion. CONTROL SYSTEMS SPECIALIST: Suzan Rankin RDCS
[2021-06-17] MEDS ORDERED: DEXTROSE 5% IN WATER 100 ML with AMIODARONE 150 MG IV ONE (11:17)
[2021-06-17] MEDS ORDERED: AMIODARONE 360 MG in DEXTROSE 5% IN WATER 200 ML IV ONE ×2 (11:17)
[2021-06-17] MEDS ORDERED: METOPROLOL TARTRATE 12.5 MG TAB PO STA (11:24)
[2021-06-17 11:30] VITALS: BMI 48.5
[2021-06-17] MEDS ORDERED: METOPROLOL TARTRATE 12.5 MG TAB PO SCH (11:30)
[2021-06-17] MEDS: APIXABAN 5 MG TAB PO SCH ×2 (12:08→20:07)
[2021-06-17] MEDS: SPIRONOLACTONE 25 MG TAB PO SCH (12:09)
--- NOTE | 2021-06-17 13:25 | P.CRDCN ---
History of Present Illness History of present illness: HISTORY OF PRESENTING ILLNESS This is a pleasant 56 female past medical history significant for coronary artery disease status post PCI in the setting of an acute ST elevated myocardial infarction January 2020, asthma, hypertension, dyslipidemia and obesity, former smoker. She follows in the office with Dr. Freire. We have been asked to see in consultation for new onset atrial fibrillation. She presented to the emergency department with complaints of palpitations and shortness of breath. Patient states over the past few days she's been having intermittent episodes of palpitations and worsening shortness of breath. Patient also states that 2 weeks ago she had an episode where she had difficulty speaking and confusion lasted less than a minute and resolved on its own. She denies any chest pain, lower extremity edema, fatigue, weakness, lightheadedness, syncope. She denies history of stroke or diabetes. She is a former smoker. DIAGNOSTICS EKG reveals atrial fibrillation with rapid ventricular response, heart rate 150s. Telemetry tracings on exam indicate atrial fibrillation HR 100-120s Chest xray correlate for developing CHF and pulmonary vascular congestion. Laboratory reviewed, WBC 12.3, hemoglobin 13.7, platelets 215, sodium 140, potassium 4.1, BUN 17, serum creatinine 0.6, AST 52, ALT 70, troponin negative 2, TSH within normal limits Current home cardiac medications include aspirin 1 mg daily, atorvastatin 80 mg nightly, Plavix 70 mg daily, metoprolol tartrate 12.5 mg twice a day, losartan 50 mg daily Echocardiogram revealed atrial fibrillation EF 30-35%, basal inferior LV, basal inferior septal LV and mid inferior and inferior septal LV wall hypokinetic, apical LV wall hypokinetic, moderate mitral regurgitation, mild tricuspid regurgitation Previous Echocardiogram in March 2020- EF 45-50% March 2020: She underwent cardiac catheterization via the right femoral artery with Dr. Freire revealing no significant obstructive disease in the circumflex, LAD or RCA. She had a patent stent in the LAD with an ejection fraction of approximately 50%. REVIEW OF SYSTEMS At the time of my exam: CONSTITUTIONAL: Denies fever or chills. CARDIOVASCULAR: +palpitations, +shortness of breath Denies chest pain, orthopnea, PND RESPIRATORY: Denies cough. GASTROINTESTINAL: Denies abdominal pain, diarrhea, constipation, nausea or vomiting. MUSCULOSKELETAL: Denies myalgias. NEUROLOGIC: Denies numbness, tingling, headacbe or weakness. ENDOCRINE: Denies fatigue, weight change, polydipsia or polyurina. GENITOURINARY: Denies burning, hematuria or urgency with micturation. HEMATOLOGIC: Denies history of anemia or bleeding. PHYSICAL EXAMINATION CONSTITUTIONAL: No apparent distress. HEENT: Head is normocephalic. Pupils are equal, round. Sclerae anicteric. Mucous membranes of the mouth are moist. No JVD. No carotid bruit. CHEST EXAMINATION: Lungs are clear to auscultation. No chest wall tenderness is noted on palpation or with deep breathing. HEART EXAMINATION: Irregular rate and rhythm. S1, S2 heard. ABDOMEN: Soft, nontender. Positive bowel sounds. EXTREMITIES: 2+ peripheral pulses, no lower extremity edema and no calf tenderness. SKIN: intact NEUROLOGIC EXAMINATION: Patient is awake, alert and oriented x3. ASSESSMENT Palpitations, shortness of breath New onset Paroxsmal atrial [id number] score 4 Possible TIA 2 weeks ago Coronary artery disease status post PCI in the setting of an acute ST elevated myocardial infarction January 2020 Cardiomyopathy- decreased EF 30-35%, most likely due to atrial fibrillation with RVR Acute systolic heart failure History of asthma Hypertension Dyslipidemia Obesity Former smoker PLAN -Discontinue cardizem -Start amiodarone 150mg bolus and IV drip -Increase metoprolol to 25mg BID -Start spironolactone 12.5mg daily -Continue IV Lasix 40mg BID -Monitor renal function and electrolytes -Atrial fibrillation, risk of stroke, risk and benefit of anticoagulation was discussed with the patient and she is agreeable to anticoagulation. -Start Eliquis 5mg BID, Case management consulted for cost. Per case management, Copay $30/month, first month free and patient is elgible for $10/month copay card -Patient's stent placed January 2020, can stop Plavix at this time -Continue home Losartan 50mg daily, Statin -Further recommendations based on clinical course Nurse Practitioner note has been reviewed, I agree with a documented findings and plan of care. Patient was seen and examined. Past Medical History Past Medical History: Asthma, Myocardial Infarction ([place]) Additional Past Medical History / Comment(s): eye disorder: arteria tortuosity, SKAD Last Myocardial Infarction Date:: 02/06/20 History of Any Multi-Drug Resistant Organisms: None Reported Past Surgical History: Section Additional Past Surgical History / Comment(s): heart cath with stent x1 02/06/[address] Freire Past Anesthesia/Blood Transfusion Reactions: No Reported Reaction Past Psychological History: No Psychological Hx Reported Smoking Status: Never smoker Past Alcohol Use History: None Reported Past Drug Use History: None Reported - Past Family History Father Family Medical History: Diabetes Mellitus, Hypertension Additional Family Medical History / Comment(s): diet controlled DM Medications and Allergies Home Medications Medication Instructions Recorded Confirmed Type Beclomethasone Dip 80 Mcg/Puff 2 puff INHALATION RT-BID 02/06/20 06/17/21 History [Qvar 80 mcg] Atorvastatin [Lipitor] 80 mg PO HS #30 tab 02/09/20 06/17/21 Rx Clopidogrel [Plavix] 75 mg PO DAILY #30 tab 02/09/20 06/17/21 Rx Nitroglycerin Sl Tabs [Nitrostat] 0.4 mg SUBLINGUAL Q5M PRN #25 tab 02/09/20 06/17/21 Rx Metoprolol Tartrate [Lopressor] 12.5 mg PO BID 04/06/20 06/17/21 History Aspirin 81 mg PO DAILY chew 04/07/20 06/17/21 Rx Magnesium Oxide [Mag-Ox] 400 mg PO DAILY tab 04/07/20 06/17/21 Rx Apixaban [Eliquis] 5 mg PO BID 30 Days #60 tab 06/17/21 Rx Losartan [Cozaar] 50 mg PO DAILY 06/17/21 06/17/21 History Allergies Allergy/AdvReac Type Severity Reaction Status Date / Time No Known Allergies Allergy Verified 06/17/21 08:22 Physical Exam Vitals: Vital Signs Temp Pulse Resp BP Pulse Ox 06/17/21 08:59 122 H 18 136/109 96 06/17/21 08:27 133 H 18 129/91 95 06/17/21 07:51 153 H 18 135/105 96 06/17/21 06:57 97.6 F 67 19 137/115 99 Intake and Output 06/16/21 06/17/21 06/17/21 22:59 06:59 14:59 Other: Weight 116.573 kg Results 06/17/21 07:31 06/17/21 07:31 Cardiac Enzymes 06/17/21 06/17/21 Range/Units 07:31 07:31 AST 52 H (14-36) U/L Troponin I <0.012 (0.000-0.034) ng/mL Coagulation 06/17/21 Range/Units 07:31 PT 10.7 (9.0-12.0) sec APTT 22.5 (22.0-30.0) sec CBC 06/17/21 Range/Units 07:31 WBC 12.3 H (3.8-10.6) k/uL RBC 4.41 (3.80-5.40) m/uL Hgb 13.7 (11.4-16.0) gm/dL Hct 41.0 (34.0-46.0) % Plt Count 215 (150-450) k/uL Comprehensive Metabolic Panel 06/17/21 Range/Units 07:31 Sodium 140 (137-145) mmol/L Potassium 4.1 (3.5-5.1) mmol/L Chloride 112 H (98-107) mmol/L Carbon Dioxide 18 L (22-30) mmol/L BUN 17 (7-17) mg/dL Creatinine 0.65 (0.52-1.04) mg/dL Glucose 136 H (74-99) mg/dL Calcium 9.2 (8.4-10.2) mg/dL AST 52 H (14-36) U/L ALT 70 H (4-34) U/L Alkaline Phosphatase 52 (38-126) U/L Total Protein 6.3 (6.3-8.2) g/dL Albumin 3.7 (3.5-5.0) g/dL Current Medications Generic Name Dose Route Start Last Admin Trade Name Freq PRN Reason Stop Dose Admin Aspirin 325 mg 06/18/21 09:00 Aspirin 325 Mg Tab PO DAILY JEANNE Furosemide 40 mg 06/17/21 09:00 Furosemide 10 Mg/Ml 4 Ml Vial IV Q12HR JEANNE Diltiazem HCl 125 mg/ Sodium 125 mls @ 5 mls/hr 06/17/21 07:30 06/17/21 07:48 Chloride IV 5 mg/hr .Q24H JEANNE 5 mls/hr Administration 5 MG/HR Sodium Chloride 10 ml 06/17/21 09:00 Sodium Chloride 0.9% Flush 10 Ml Syringe IV BID JEANNE Intake and Output 08/05/21 08/06/21 08/06/21 22:59 06:59 14:59 Other: Weight 116.573 kg 06/17/21 07:31 06/17/21 07:31
--- NOTE | 2021-06-17 14:36 | P.HPIM ---
History of Present Illness H&P Date: 06/17/21 HISTORY OF PRESENT ILLNESS This is a 56-year-old female patient of Dr. Cleary with past medical history of mild intermittent asthma, hypertension and hypertensive cardio vascular disease, hyperlipidemia, non-ST elevated myocardial infarction with heart catheterization finding no obstructive disease, previous ST elevated myocardial infarction and PCI in the LAD in January 2020, ischemic cardiomyopathy, hypertension, hyperlipidemia, morbid obesity patient states that she has had feelings in her chest like her heart is racing and difficulty with breathing and difficulty catc roque her breath it's been going on and off. It woke her this morning at 2 AM and she waited until her got up for work before she did any thing about this. She also states that 12 days ago she had an episode of expressive H aphasia. She states she was talking fine and then all of a sudden her speech became garbled and it lasted for about 20 seconds. She called her underliner. She subsequently called Dr. Cleary and was seen in the office by her nurse practitioner. Her monitor was placed which she completed on Sunday of last week. Patient came into [facility] emergency center for evaluation. EKG was atrial fibrillation at a heart rate of 150s. WBC WBC 12.3, hemoglobin 13.7, platelets 215, sodium 140, potassium 4.1, BUN 17, serum creatinine 0.6, AST 52, ALT 70, troponin negative 2, TSH 2.250. Echocardiogram reveals EF 30-35%, basal inferior LV, basal inferior septal LV and mid inferior and inferior septal LV wall hypokinetic, apical LV wall hypokinetic, moderate mitral regurgitation, mild tricuspid regurgitation Previous Echocardiogram in March 2020- EF 45-50% Chest x-ray reveals correlate for heart failure and pulmonary basilar congestion. CAT scan of the brain Patient admitted to the cardiac stepdown unit and cardiology consult in place. Heparin has been transitioned to eliquis. Patient converted out of atrial fibrillation while on Cardizem drip which was discontinued and patient subsequent late transition back to atrial fibrillation and amiodarone drip started. REVIEW OF SYSTEMS Constitutional: No fever, no chills, no night sweats. No weight change. No weakness, fatigue or lethargy. No daytime sleepiness. EENT: Slight headache. No blurred vision or double vision, no loss of vision. No loss of Hearing, no ringing in the ears, no dizziness. No nasal drainage or congestion. No epistaxis. No sore throat. Lungs: Reports shortness of breath, reports minimal cough, no sputum production. No wheezing. Cardiovascular: Reports chest pain, no lower extremity edema. No palpitations. No paroxysmal nocturnal dyspnea. No orthopnea. No lightheadedness or dizziness. No syncopal episodes. Abdominal: No abdominal pain. No nausea, vomiting. No diarrhea. No constipation. No bloody or tarry stools.. No loss of appetite. Genitourinary: No dysuria, increased frequency, urgency. No urinary retention. Musculoskeletal: No myalgias. No muscle weakness, no gait dysfunction, no frequent falls. No back pain. No neck pain. Integumentary: No wounds, no lesions. No rash or pruritus. No unusual bruising . No change in hair or nails. Neurologic: No aphasia. No facial droop. No change in mentation. No head injury. No headache. No paralysis. No paresthesia. Psychiatric: No depression. No anxiety. No mood swings. Endocrine: No abnormal blood sugars. No weight change. No excessive sweating or thirst. No cold intolerance. SOCIAL HISTORY Patient is a lifelong nonsmoker, no illicit drug use, marijuana use or alcohol use. FAMILY HISTORY Father has history of diabetes. Mother has history of hypertension. Patient has a twin sister with no major medical problems. She has one son with no major medical problems.. PHYSICAL EXAMINATION Gen: This is a morbidly obese 56-year-old female. She is resting in chair and appears to be comfortable. is at bedside. EENT: Head is atraumatic, normocephalic. Pupils equal, round. Sclerae is anicteric. NECK: Supple. No JVD. No lymphadenopathy. No thyromegaly. LUNGS: Clear to auscultation. No wheezes or rhonchi. No intercostal retractions. HEART: Irregular rate and rhythm. No murmur. Tachycardic. ABDOMEN: Soft. Bowel sounds are present. No masses. No tenderness. EXTREMITIES: No pedal edema. No calf tenderness. NEUROLOGICAL: Patient is awake, alert and oriented x3. Cranial nerves 2 through 12 are grossly intact. ASSESSMENT AND PLAN 1. New onset of atrial fibrillation with RVR, paroxysmal atrial fibrillation. Patient started on amiodarone drip, eliquis, metoprolol was increased to 25 mg twice daily cardiology consult. 2. Acute systolic heart failure. Cardiac consult appreciated. IV Lasix 40 mg twice daily, Aldactone 12.5 mg daily, monitor I&O and daily weights, monitor renal function and electrolytes. 3. Possible TIA. MRI and MRA of the brain and neck with and without contrast, consult with neurology. 4. Hypertension, hypertensive cardiovascular disease. Continue losartan 50 mg daily, Lopressor. 5. Ischemic cardiomyopathy with worsening EF. Continue as #2. 6. Hyperlipidemia. Continue atorvastatin 40 mg daily 7. Coronary artery disease. Continue aspirin 81 mg daily, Plavix was discontinued, continue Lipitor. 8. Mild intermittent asthma without exacerbation. 9. Morbid obesity with BMI 48. 10. DVT prophylaxis. Eliquis. 11. GI prophylaxis. Protonix. Patient will be admitted to the hospital for a minimum of 2 night stay. DISCHARGE PLAN Home. Impression and plan of care have been directed as dictated by the signing physician. Jocelynn Huggins nurse practitioner acting as scribe for signing physician. Past Medical History Past Medical History: Asthma, Myocardial Infarction ([place]) Additional Past Medical History / Comment(s): eye disorder: arteria tortuosity, SKAD Last Myocardial Infarction Date:: 02/06/20 History of Any Multi-Drug Resistant Organisms: None Reported Past Surgical History: Section Additional Past Surgical History / Comment(s): heart cath with stent x1 02/[address] Freire Past Anesthesia/Blood Transfusion Reactions: No Reported Reaction Past Psychological History: No Psychological Hx Reported Smoking Status: Former smoker Past Alcohol Use History: None Reported Past Drug Use History: None Reported - Past Family History Father Family Medical History: Diabetes Mellitus, Hypertension Additional Family Medical History / Comment(s): diet controlled DM Medications and Allergies Home Medications Medication Instructions Recorded Confirmed Type Beclomethasone Dip 80 Mcg/Puff 2 puff INHALATION RT-BID 02/06/20 06/17/21 History [Qvar 80 mcg] Atorvastatin [Lipitor] 80 mg PO HS #30 tab 02/09/20 06/17/21 Rx Clopidogrel [Plavix] 75 mg PO DAILY #30 tab 02/09/20 06/17/21 Rx Nitroglycerin Sl Tabs [Nitrostat] 0.4 mg SUBLINGUAL Q5M PRN #25 tab 02/09/20 06/17/21 Rx Metoprolol Tartrate [Lopressor] 12.5 mg PO BID 04/06/20 06/17/21 History Aspirin 81 mg PO DAILY chew 04/07/20 06/17/21 Rx Magnesium Oxide [Mag-Ox] 400 mg PO DAILY tab 04/07/20 06/17/21 Rx Apixaban [Eliquis] 5 mg PO BID 30 Days #60 tab 06/17/21 Rx Losartan [Cozaar] 50 mg PO DAILY 06/17/21 06/17/21 History Allergies Allergy/AdvReac Type Severity Reaction Status Date / Time No Known Allergies Allergy Verified 06/17/21 08:22 Physical Exam Vitals: Vital Signs Temp Pulse Pulse Resp BP BP Pulse Ox 06/17/21 10:14 98.6 F 97 16 142/116 96 06/17/21 09:21 112 H 18 123/94 95 06/17/21 08:59 122 H 18 136/109 96 06/17/21 08:27 133 H 18 129/91 95 06/17/21 07:51 153 H 18 135/105 96 06/17/21 06:57 97.6 F 67 19 137/115 99 Intake and Output 06/16/21 06/17/21 06/17/21 22:59 06:59 14:59 Other: # Voids 3 Weight 116.573 kg 116.573 kg Results CBC & Chem 7: 06/17/21 07:31 06/17/21 07:31 Labs: Abnormal Lab Results - Last 24 Hours (Table) 06/17/21 06/17/21 Range/Units 07:31 07:31 WBC 12.3 H (3.8-10.6) k/uL Neutrophils # 9.4 H (1.3-7.7) k/uL Chloride 112 H (98-107) mmol/L Carbon Dioxide 18 L (22-30) mmol/L Glucose 136 H (74-99) mg/dL AST 52 H (14-36) U/L ALT 70 H (4-34) U/L Thrombosis Risk Factor Assmnt - Choose All That Apply Each Factor Represents 1 point: Acute MS, Age 41-60 years, Obesity (BMI >25), Swollen legs (current), Varicose veins Thrombosis Risk Factor Assessment Total Risk Factor Score: 5 Thrombosis Risk Factor Assessment Level: High Risk
[2021-06-17] MEDS ORDERED: METOPROLOL TARTRATE 50 MG TAB PO STA (17:34)
--- NOTE | 2021-06-17 17:42 | P.CNNES ---
History of Present Illness Consult date: 06/17/21 Requesting physician: Junito Alaniz Reason for Consult: evaluate for recent TIA History of Present Illness: This is a 56-year-old woman with medical history of hypertension, dyslipidemia, coronary artery disease status post PCI and stenting, myocardial infarction 2019, cardiomyopathy, ex-tobacco user presents emergency department on 06/17/2021 with palpitation. She stated that she is having the symptoms lasted a few days and feels her heart is racing. Patient stated that 2 weeks ago she had an episode where she had difficulty speaking and it lasted for maximum of 30 seconds. She stated she knew what she wanted to see but had difficulty getting her words out and felt her words were garbled. She denies any focal weakness, numbness, tingling, visual disturbance, or swallowing. She denies of any headaches. She denies history of stroke or TIA in the past. She denies any further episodes in the past. In this hospital visit she was found to be in new onset atrial fibrillation Some of the patient's home medication consist of aspirin 81 mg daily, Lipitor 80 mg daily at bedtime, Plavix 75 mg daily, metoprolol, losartan. She denies of being on anticoagulation at home (it is mentioned eliquis but patient denies that). Some of the workup in the hospital consisted of Initial vital signs was blood pressure of 137/115, heart rate of 67, temperature of 97.6 Fahrenheit oral, respiratory of 19, pulse ox of 99% room air. Patient white blood cell on initial presentation is 12.3 which slightly elevated, and a slightly neutrophilic otherwise rest of the CBC with differential is unremarkable. Chemistry panel is the AST is 52 and ALT is 70 which is slightly elevated chloride 112 with is minimally elevated as well as a carbon dioxide level is slightly low of 18. Otherwise the rest of the chemistry panel is unremarkable. TSH of 2.50 which is considered within normal limits. CT of the head is reported as moderate patchy burden of chronic small vessel ischemic disease. No acute intracranial abnormality seen. If symptoms persist or concern for subacute acute ischemia, follow-up MRI. Benign cerebellar t onsillar ectopia of 3 mm incidentally seen. EKG is reported as atrial fibrillation with rapid ventricular response with premature ventricular or aberrantly conducted complexes at. Low voltage QRS. C annot rule out inferior infarct, age undetermined. Abnormal EKG. 2-D echo was reported as age are fibrillation. Overall left ventricle systolic function is moderate-severely impaired with ejection fraction of 30-35%. Patient has a left ventricle wall motion hypokinetic as stated in the left ventr icle and at different levels of left ventricle. Left atrial is mildly dilated. Cardiology is on board and they have the patient on Cardizem of drip. As well as patient received the amiodarone. Review of Systems Review of system: The 12 point system was reviewed and apparent positive and negative per HPI. Past Medical History Past Medical History: Asthma, Myocardial Infarction ([place]) Additional Past Medical History / Comment(s): eye disorder: arteria tortuosity, SKAD Last Myocardial Infarction Date:: 02/06/20 History of Any Multi-Drug Resistant Organisms: None Reported Past Surgical History: Section Additional Past Surgical History / Comment(s): heart cath with stent x1 02/06/[address] Freire Past Anesthesia/Blood Transfusion Reactions: No Reported Reaction Past Psychological History: No Psychological Hx Reported Smoking Status: Never smoker Past Alcohol Use History: None Reported Past Drug Use History: None Reported - Past Family History Father Family Medical History: Diabetes Mellitus, Hypertension Additional Family Medical History / Comment(s): diet controlled DM Medications and Allergies Home Medications Medication Instructions Recorded Confirmed Type Beclomethasone Dip 80 Mcg/Puff 2 puff INHALATION RT-BID 02/06/20 06/17/21 History [Qvar 80 mcg] Atorvastatin [Lipitor] 80 mg PO HS #30 tab 02/09/20 06/17/21 Rx Clopidogrel [Plavix] 75 mg PO DAILY #30 tab 02/09/20 06/17/21 Rx Nitroglycerin Sl Tabs [Nitrostat] 0.4 mg SUBLINGUAL Q5M PRN #25 tab 02/09/20 06/17/21 Rx Metoprolol Tartrate [Lopressor] 12.5 mg PO BID 04/06/20 06/17/21 History Aspirin 81 mg PO DAILY chew 04/07/20 06/17/21 Rx Magnesium Oxide [Mag-Ox] 400 mg PO DAILY tab 04/07/20 06/17/21 Rx Apixaban [Eliquis] 5 mg PO BID 30 Days #60 tab 06/17/21 Rx Losartan [Cozaar] 50 mg PO DAILY 06/17/21 06/17/21 History Allergies Allergy/AdvReac Type Severity Reaction Status Date / Time No Known Allergies Allergy Verified 06/17/21 08:22 Physical Examination - Vital Signs Vital Signs: Vital Signs Temp Pulse Pulse Resp BP BP BP 06/17/21 12:56 129 H 103/75 06/17/21 12:55 114 H 128/80 06/17/21 12:53 119 H 117/78 06/17/21 12:49 106 H 130/84 06/17/21 12:13 98.3 F 113 H 16 141/76 06/17/21 10:14 98.6 F 97 16 142/116 06/17/21 09:21 112 H 18 123/94 06/17/21 08:59 122 H 18 136/109 06/17/21 08:27 133 H 18 129/91 06/17/21 07:51 153 H 18 135/105 06/17/21 06:57 97.6 F 67 19 137/115 Pulse Ox 06/17/21 12:56 06/17/21 12:55 06/17/21 12:53 06/17/21 12:49 06/17/21 12:13 97 06/17/21 10:14 96 06/17/21 09:21 95 06/17/21 08:59 96 06/17/21 08:27 95 06/17/21 07:51 96 06/17/21 06:57 99 Intake and Output 06/16/21 06/17/21 06/17/21 22:59 06:59 14:59 Other: # Voids 3 Weight 116.573 kg 116.573 kg GENERAL: The patient is obese for her height, lying in bed and is not in acute distress. CHEST: The heart rate is regular rate rhythm. No murmurs to auscultation. No carotid bruit bilaterally. LUNG: Clear to auscultation bilaterally no wheezing noted throughout. Not labored breathing. ABDOMEN/GI: Bowel sounds present in all 4 quadrants. No tenderness to palpation throughout. NEUROLOGICAL: Higher mental function: The patient is awake, alert, oriented to self, place and time. Patient is following commands. No aphasia and no neglect. Cranial nerves: The pupils are round, equal and reactive to light and accommodation. Visual patel are full to confrontation throughout. Extraocular movement is intact no nystagmus is noted. Facial sensation is normal to touch throughout. The facial strength is normal throughout. Hearing is normal bilaterally to hand rub. Tongue is midline and moved [id number] without any difficulty. No dysarthria is noted. Shoulder shrug is normal bilaterally. Motor: Gait is normal with normal arm swings. The strength is 5 over 5 throughout. Normal tone and bulk. Cerebellum: Normal finger to nose heel to smith bilaterally. Sensation: Sensation is normal to touch throughout. Reflexes (right/left): 2+ throughout. Plantars are downgoing bilaterally. Results Calcium is 9.2 and magnesium is 1.8 which considered within normal limits. Basic coagulation study are within normal limits. - Laboratory Findings CBC and BMP: 06/17/21 07:31 08 07:31 Abnormal Lab Findings: Abnormal Labs 06/17/21 06/17/21 07:31 07:31 WBC 12.3 H Neutrophils # 9.4 H Chloride 112 H Carbon Dioxide 18 L Glucose 136 H AST 52 H ALT 70 H Assessment and Plan Assessment: Episode of speech difficulty about 2 weeks ago that was brief (lasting 30 seconds): Likely transient ischemic attack. Seem likely due to new onset atrial fibrillation 2 onset atrial fibrillation Cardiomyopathy with ejection fraction between 3035% Coronary artery disease s/p PCI in setting of STEMI 2019 Hypertension Dyslipidemia Ex-Nicotine use Plan: Currently the patient is on Eliquis 5 mg 1 tablet twice a day as well as aspirin 81 mg daily from a neurological perspective will defer the use of aspirin to cardiology team. Eliquis from neurological standpoint is sufficient enough, but again we'll defer to cardiology. Patient is on Lipitor 80mg daily at bedtime which is sufficient for secondary to stroke prophylaxis. MRI of the brain and MRA neck are ordered by the primary team and is pending. I ordered lipid panel. PT, OT and SPRAY CEMENTER are not needed since patient is back to baseline. Cardiology team is on board. Will defer the rest of the medical management to primary team. If MRI Brain and MRA neck is negative then no further work-up from neurological stand point and patient is clear from neurological stand point. The plan is discussed with the patient's nurse. Thank you for the consultation. Dr. Wilkins will take over neurology service starting tomorrow AM. Sukhdeep Shah M.D. Neuro-hospitalist Time with Patient: Greater than 30
--- NOTE | 2021-06-17 18:47 | MR ---
EXAMINATION TYPE: [facility] DATE OF EXAM: 06/17/2021 COMPARISON: HISTORY: Expressive aphasia CONTRAST: Standard multiplanar, multisequence MRI departmental protocol utilizing 12 mL intravenous Gadavist ga dolinium contrast. There are MR angiographic images of the neck. Diffusion images show no evidence of an acute infarct. The ventricles have normal size. There is no m ass effect nor midline shift. I see no evidence of intracranial hemorrhage. There are numerous white matter high signal foci at the orozco-white matter junction of both cerebral hemispheres. These are khanh ewhat coalescent. These measure up to 1 cm and total number is more than 30. The cerebellum appears f airly normal. Brainstem is intact. Corpus callosum appears intact. Sella turcica is normal. Brain shows no pathologic enhancement. There is 1 cm nodular area of enhancement at the right superio r temporal lobe convexity that is probably a meningioma. There is no evidence of orbital mass. The gl obes are symmetric. There is normal enhancement of the venous sinuses. There is arterial flow in the anterior middle and posterior cerebral arteries. There is arterial flow in the common internal and external carotid arteries bilaterally. There is wid e patency of the carotid artery bifurcations. There is arterial flow in both vertebral arteries. IMPRESSION: Normal MR angiogram of the neck. No evidence of any significant stenosis. Numerous white matter high signal foci without enhancement could relate to demyelinating disease or m ultifocal microvascular ischemia. No evidence of a cortical infarct. Small meningioma in the right temporal lobe convexity.
[2021-06-17] MEDS: AMIODARONE 450 MG in DEXTROSE 5% IN WATER 250 ML IV SCH ×2 (19:35)
[2021-06-17] MEDS: ATORVASTATIN 80 MG TAB PO SCH (20:07)
[2021-06-17] MEDS: METOPROLOL TARTRATE 25 MG TAB PO SCH (20:08)
[2021-06-18] MEDS ORDERED: METOPROLOL TARTRATE 50 MG TAB PO STA (01:22)
[2021-06-18 05:18] LABS: Chol/HDL Ratio 2.34; LDL Cholesterol,Calculated 43.6 mg/dL (0.0-131.0); VLDL Calculation 15.4 mg/dL (5.00-40.00)
[2021-06-18] MEDS: PANTOPRAZOLE 40 MG TABLET PO SCH (06:47)
[2021-06-18] MEDS ORDERED: ASPIRIN 81 MG PO SCH (09:00)
[2021-06-18] MEDS ORDERED: ASPIRIN 325 MG TAB PO SCH (09:00)
[2021-06-18] MEDS: FUROSEMIDE 10 MG/ML 4 ML VIAL IV SCH (09:32)
[2021-06-18] MEDS: LOSARTAN 50 MG TAB PO SCH (09:32)
[2021-06-18] MEDS: METOPROLOL TARTRATE 25 MG TAB PO SCH (09:32)
[2021-06-18] MEDS: SPIRONOLACTONE 25 MG TAB PO SCH (09:32)
[2021-06-18] MEDS: MAGNESIUM OXIDE 400 MG TAB PO SCH (09:32)
[2021-06-18] MEDS: APIXABAN 5 MG TAB PO SCH ×2 (09:32→20:59)
[2021-06-18 10:12] LABS: African American GFR (CKD) >90 (>60 ml/min/1.73 sqM); Anion Gap 8 mmol/L; Blood Urea Nitrogen 17 mg/dL (7-17); Carbon Dioxide 28 mmol/L (22-30); Chloride 103 mmol/L (98-107); Glucose 112 mg/dL (74-99); Non-African American GFR(CKD) 80 (>60 ml/min/1.73 sqM); Potassium 3.4 mmol/L (3.5-5.1); Sodium 139 mmol/L (137-145)
[2021-06-18] MEDS: AMIODARONE 450 MG in DEXTROSE 5% IN WATER 250 ML IV SCH ×2 (10:20)
--- NOTE | 2021-06-18 10:54 | P.PN ---
Subjective Progress Note Date: 06/18/21 HISTORY OF PRESENT ILLNESS This is a 56-year-old female patient of Dr. Cleary with past medical history of mild intermittent asthma, hypertension and hypertensive cardio vascular disease, hyperlipidemia, non-ST elevated myocardial infarction with heart catheterization finding no obstructive disease, previous ST elevated myocardial infarction and PCI in the LAD in January 2020, ischemic cardiomyopathy, hypertension, hyperlipidemia, morbid obesity patient states that she has had feelings in her chest like her heart is racing and difficulty with breathing and difficulty catching her breath it's been going on and off. It woke her this morning at 2 AM and she waited until her got up for work before she did any thing about this. She also states that 12 days ago she had an episode of expressive H aphasia. She states she was talking fine and then all of a sudden her speech became garbled and it lasted for about 20 seconds. She called her wire stretcher. She subsequently called Dr. Cleary and was seen in the office by her nurse practitioner. Her monitor was placed which she completed on Sunday of last week. Patient came into [facility] emergency center for evaluation. EKG was atrial fibrillation at a heart rate of 150s. WBC WBC 12.3, hemoglobin 13.7, platelets 215, sodium 140, potassium 4.1, BUN 17, serum creatinine 0.6, AST 52, ALT 70, troponin negative 2, TSH 2.250. Echocardiogram reveals EF 30-35%, basal inferior LV, basal inferior septal LV and mid inferior and inferior septal LV wall hypokinetic, apical LV wall hypokinetic, moderate mitral regurgitation, mild tricuspid regurgitation Previous Echocardiogram in March 2020- EF 45-50% Chest x-ray reveals correlate for heart failure and pulmonary basilar congestion. CAT scan of the brain Patient admitted to the cardiac stepdown unit and cardiology consult in place. Heparin has been transitioned to eliquis. Patient converted out of atrial fibrillation while on Cardizem drip which was discontinued and patient subsequent late transition back to atrial fibrillation and amiodarone drip started. 06/18: She is found sitting up in chair without any complaints or concerns. She has been ambulatory in the room without any chest pain or shortness of breath lightheadedness. Patient has not had any other dictations. Patient states that her speech has not had any issues since previously reported. She was started on Eliquis. Patient states that the fluttering has improved. Heart rate remains in the 110s. Discussed with patient possible workup for sleep apnea upon discharge. Patient is agreeable at this time. Patient remains afebrile, heart rate 104, blood pressure 119/74, pulse oxing 95% on room air. REVIEW OF SYSTEMS Constitutional: No fever, no chills, no night sweats. No weight change. No weakness, fatigue or lethargy. No daytime sleepiness. EENT: Slight headache. No blurred vision or double vision, no loss of vision. No loss of Hearing, no ringing in the ears, no dizziness. No nasal drainage or congestion. No epistaxis. No sore throat. Lungs: Reports shortness of breath, reports minimal cough, no sputum production. No wheezing. Cardiovascular: Reports chest pain, no lower extremity edema. No palpitations. No paroxysmal nocturnal dyspnea. No orthopnea. No lightheadedness or dizziness. No syncopal episodes. Abdominal: No abdominal pain. No nausea, vomiting. No diarrhea. No constipation. No bloody or tarry stools.. No loss of appetite. Genitourinary: No dysuria, increased frequency, urgency. No urinary retention. Musculoskeletal: No myalgias. No muscle weakness, no gait dysfunction, no frequent falls. No back pain. No neck pain. Integumentary: No wounds, no lesions. No rash or pruritus. No unusual bruising. No change in hair or nails. Neurologic: No aphasia. No facial droop. No change in mentation. No head injury. No headache. No paralysis. No paresthesia. Psychiatric: No depression. No anxiety. No mood swings. Endocrine: No abnormal blood sugars. No weight change. No excessive sweating or thirst. No cold intolerance. PHYSICAL EXAMINATION Gen: This is a morbidly obese 56-year-old female. She is resting in chair and appears to be comfortable. is at bedside. EENT: Head is atraumatic, normocephalic. Pupils equal, round. Sclerae is anict rosalva. NECK: Supple. No JVD. No lymphadenopathy. No thyromegaly. LUNGS: Clear to auscultation. No wheezes or rhonchi. No intercostal retractions. HEART: Irregular rate and rhythm. No murmur. Tachycardic. ABDOMEN: Soft. Bowel sounds are present. No masses. No tenderness. EXTREMITIES: No pedal edema. No calf tenderness. NEUROLOGICAL: Patient is awake, alert and oriented x3. Cranial nerves 2 through 12 are grossly intact. ASSESSMENT AND PLAN 1. New onset of atrial fibrillation with RVR, paroxysmal atrial fibrillation. Patient remains on amiodarone drip, eliquis, metoprolol was increased to 25 mg twice daily cardiology consult. 2. Acute systolic heart failure. Cardiac consult appreciated. IV Lasix 40 mg twice daily, Aldactone 12.5 mg daily, monitor I&O and daily weights, monitor renal function and electrolytes. 3. Possible TIA. MRI and MRA of the brain and neck with and without contrast, consult with neurology. 4. Hypertension, hypertensive cardiovascular disease. Continue losartan 50 mg daily, Lopressor. 5. Ischemic cardiomyopathy with worsening EF. Continue as #2. 6. Hyperlipidemia. Continue atorvastatin 40 mg daily 7. Coronary artery disease. Continue aspirin 81 mg daily, Plavix was discontinued, continue Lipitor. 8. Mild intermittent asthma without exacerbation. 9. Morbid obesity with BMI 48. 10. DVT prophylaxis. Eliquis. 11. GI prophylaxis. Protonix. Patient will be admitted to the hospital for a minimum of 2 night stay. DISCHARGE PLAN Home. Impression and plan of care have been directed as dictated by the signing physician. Erin Mayorga nurse practitioner acting as scribe for signing physician. Objective - Vital Signs Vital signs: Vital Signs Temp 97.9 F 06/18/21 04:50 Pulse 89 06/18/21 04:50 Resp 16 06/18/21 04:50 BP 133/90 06/18/21 04:50 Pulse Ox 97 06/18/21 04:50 Intake & Output 06/17/21 06/18/21 06/18/21 18:59 06:59 18:59 Intake Total 240 485.838 Output Total 3150 Balance 240 -3150 485.838 Weight 116.573 kg 105.5 kg Intake: Intake, IV Titration 245.838 Amount Amiodarone 450 mg In 245.838 Dextrose 5% in Water 250 ml @ 0.5 MG/MIN 16.667 mls/hr IV .Q15H JEANNE Rx#: [id number] Oral 240 240 Output: Urine 3150 Other: Voiding Method Toilet # Voids 5 - Labs CBC & Chem 7: 06/17/21 07:31 06/18/21 09:18 Labs: Abnormal Lab Results - Last 24 Hours (Table) 06/18/21 Range/Units 09:18 Potassium 3.4 L (3.5-5.1) mmol/L Glucose 112 H (74-99) mg/dL
[2021-06-18] MEDS: AMIODARONE 200 MG TAB PO SCH ×2 (11:55→20:59)
--- NOTE | 2021-06-18 13:25 | P.PN ---
Subjective Progress Note Date: 06/18/21 HISTORY OF PRESENT ILLNESS: his is a pleasant 56 female past medical history significant for coronary artery disease status post PCI in the setting of an acute ST elevated myocardial infarction January 2020, asthma, hypertension, dyslipidemia and obesity, former smoker. She follows in the office with Dr. Freire. We have been asked to see in consultation for new onset atrial fibrillation. She presented to the emergency department with complaints of palpitations and shortness of breath. Patient states over the past few days she's been having intermittent episodes of palpitations and worsening shortness of breath. Patient also states that 2 weeks ago she had an episode where she had difficulty speaking and confusion lasted less than a minute and resolved on its own. She denies any chest pain, lower extremity edema, fatigue, weakness, lightheadedness, syncope. She denies history of stroke or diabetes. She is a former smoker. DIAGNOSTICS EKG reveals atrial fibrillation with rapid ventricular response, heart rate 150s. Telemetry tracings on exam indicate atrial fibrillation HR 100-120s Chest xray correlate for developing CHF and pulmonary vascular congestion. Laboratory reviewed, WBC 12.3, hemoglobin 13.7, platelets 215, sodium 140, potassium 4.1, BUN 17, serum creatinine 0.6, AST 52, ALT 70, troponin negative 2, TSH within normal limits Current home cardiac medications include aspirin 1 mg daily, atorvastatin 80 mg nightly, Plavix 70 mg daily, metoprolol tartrate 12.5 mg twice a day, losartan 50 mg daily Echocardiogram revealed atrial fibrillation EF 30-35%, basal inferior LV, basal inferior septal LV and mid inferior and inferior septal LV wall hypokinetic, apical LV wall hypokinetic, moderate mitral regurgitation, mild tricuspid regurgitation Previous Echocardiogram in March 2020- EF 45-50% March 2020: She underwent cardiac catheterization via the right femoral artery with Dr. Freire revealing no significant obstructive disease in the circumflex, LAD or RCA. She had a patent stent in the LAD with an ejection fraction of approximately 50%. 06/18/2021 Patient examined this morning at the bedside. Patient denies chest pain or pr essure. She denies shortness of breath. She remains in atrial fibrillation. She remains on IV amiodarone and IV Lasix. PHYSICAL EXAM: VITAL SIGNS: Reviewed. GENERAL: Well-developed in no acute distress. NECK: Supple. No JVD or thyromegaly LUNGS: Respirations even and unlabored. Lungs essentially clear to auscultation bilaterally. HEART: Irregular rate and rhythm. S1 and S2 heard. EXTREMITIES: Normal range of motion. No clubbing or cyanosis. Peripheral pu lses intact. No lower extremity edema ASSESSMENT: Palpitations, shortness of breath New onset Paroxysmal atrial [id number] score 4 Possible TIA 2 weeks ago Coronary artery disease status post PCI in the setting of an acute ST elevated myocardial infarction January 2020 Cardiomyopathy- decreased EF 30-35%, most likely due to atrial fibrillation with RVR Acute systolic heart failure History of asthma Hypertension Dyslipidemia Obesity Former smoker PLAN: Discontinue IV Lasix. Transition to oral Lasix 40 mg daily starting tomorrow Continue current dose of metoprolol 50 mg twice a day Begin oral amiodarone 400 mg twice a day after infusion is completed Continue anticoagulation with Eliquis Further recommendations pending patient course Nurse practitioner note has been reviewed by physician. Signing provider agrees with the documented findings, assessment, and plan of care. Objective - Vital Signs Vital signs: Vital Signs Temp 97.9 F 06/18/21 04:50 Pulse 89 06/18/21 04:50 Resp 16 06/18/21 04:50 BP 133/90 06/18/21 04:50 Pulse Ox 97 06/18/21 04:50 Intake & Output 06/17/21 06/18/21 06/18/21 18:59 06:59 18:59 Intake Total 240 485.838 Output Total 3150 Balance 240 -3150 485.838 Weight 116.573 kg 105.5 kg Intake: Intake, IV Titration 245.838 Amount Amiodarone 450 mg In 245.838 Dextrose 5% in Water 250 ml @ 0.5 MG/MIN 16.667 mls/hr IV .Q15H JEANNE Rx#: [id number] Oral 240 240 Output: Urine 3150 Other: Voiding Method Toilet # Voids 5 - Labs CBC & Chem 7: 06/17/21 07:31 06/18/21 09:18 Labs: Abnormal Lab Results - Last 24 Hours (Table) 06/18/21 Range/Units 09:18 Potassium 3.4 L (3.5-5.1) mmol/L Glucose 112 H (74-99) mg/dL
[2021-06-18] MEDS ORDERED: METOPROLOL TARTRATE 25 MG TAB PO STA (19:04)
[2021-06-18] MEDS: METOPROLOL TARTRATE 50 MG TAB PO SCH (20:59)
[2021-06-18] MEDS: ATORVASTATIN 80 MG TAB PO SCH (20:59)
[2021-06-19] MEDS: PANTOPRAZOLE 40 MG TABLET PO SCH (06:33)
[2021-06-19] MEDS: MAGNESIUM OXIDE 400 MG TAB PO SCH (08:02)
[2021-06-19] MEDS: AMIODARONE 200 MG TAB PO SCH (08:02)
[2021-06-19] MEDS: LOSARTAN 50 MG TAB PO SCH (08:02)
[2021-06-19] MEDS: METOPROLOL TARTRATE 50 MG TAB PO SCH (08:02)
[2021-06-19] MEDS: APIXABAN 5 MG TAB PO SCH (08:02)
[2021-06-19] MEDS: SPIRONOLACTONE 25 MG TAB PO SCH (08:02)
[2021-06-19 08:39] LABS: Basophils # (A) 0.1 k/uL (0-0.2); Basophils % (A) 1 %; Eosinophils # (A) 0.2 k/uL (0-0.7); Eosinophils % (A) 3 %; HGB 14.2 gm/dL (11.4-16.0); Lymphocytes # (A) 2.7 k/uL (1.0-4.8); Lymphocytes % (A) 32 %; MCH 30.7 pg (25.0-35.0); Mean Platelet Volume 8.4; Monocytes # (A) 0.5 k/uL (0-1.0); Monocytes % (A) 6 %; Neutrophils # (A) 4.7 k/uL (1.3-7.7); Neutrophils % (A) 57 %; Platelet Count 235 k/uL (150-450); RBC 4.62 m/uL (3.80-5.40); RDW 13.3 % (11.5-15.5); WBC 8.3 k/uL (3.8-10.6)
[2021-06-19] MEDS ORDERED: FUROSEMIDE 40 MG TAB PO SCH (09:00)
--- NOTE | 2021-06-19 10:54 | P.DS ---
Providers Date of admission: 06/17/21 08:45 Attending physician: Rigoberto Jimenez MD Consults: 06/17/21 08:46 Consult Physician Urgent Consulting Provider: Tania Hopkins Consult Reason/Comments: a fib w rvr, chf Do you want consulting provider notified?: Yes 06/17/21 08:47 Consult Physician Urgent Consulting Provider: Sukhdeep Shah Consult Reason/Comments: eval for recent tia Do you want consulting provider notified?: Yes Primary care physician: Barbie Cleary [facility] Course: This is a 56-year-old female patient of Dr. Cleary with past medical history of mild intermittent asthma, hypertension and hypertensive cardio vascular disease, hyperlipidemia, non-ST elevated myocardial infarction with heart catheterization finding no obstructive disease, previous ST elevated myocardial infarction and PCI in the LAD in January 2020, ischemic cardiomyopathy, hypertension, hyperlipidemia, morbid obesity patient states that she has had feelings in her chest like her heart is racing and difficulty with breathing and difficulty catching her breath it's been going on and off. It woke her this morning at 2 AM and she waited until her got up for work before she did any thing about this. She also states that 12 days ago she had an episode of expressive H aphasia. She states she was talking fine and then all of a sudden her speech became garbled and it lasted for about 20 seconds. She called her superintendent [employer] stations. She subsequently called Dr. Cleary and was seen in the office by her nurse practitioner. Her monitor was placed which she completed on Sunday of last week. Patient came into [facility] emergency [facility] for evaluation. EKG was atrial fibrillation at a heart rate of 150s. WBC WBC 12.3, hemoglobin 13.7, platelets 215, sodium 140, potassium 4.1, BUN 17, serum creatinine 0.6, AST 52, ALT 70, troponin negative 2, TSH 2.250. Echocardiogram reveals EF 30-35%, basal inferior LV, basal inferior septal LV and mid inferior and inferior septal LV wall hypokinetic, apical LV wall hypokinetic, moderate mitral regurgitation, mild tricuspid regurgitation Previous Echocardiogram in March 2020- EF 45-50% Chest x-ray reveals correlate for heart failure and pulmonary basilar congestion. CAT scan of the brain Patient admitted to the cardiac stepdown unit and cardiology consult in place. Heparin has been transitioned to eliquis. Patient converted out of atrial fib rillation while on Cardizem drip which was discontinued and patient subsequent late transition back to atrial fibrillation and amiodarone drip started. 06/18: She is found sitting up in chair without any complaints or concerns. She has been ambulatory in the room without any chest pain or shortness of breath lightheadedness. Patient has not had any other dictations. Patient states that her speech has not had any issues since previously reported. She was started on Eliquis. Patient states that the fluttering has improved. Heart rate remains in the 110s. Discussed with patient possible workup for sleep apnea upon discharge. Patient is agreeable at this time. Patient remains afebrile, heart rate 104, blood pressure 119/74, pulse oxing 95% on room air. 06/19: Is been transitioned to oral medications. Tolerating without any difficulties. Patient is found sitting up in chair without any complaints. Heart rate is 85, blood pressure 120/90, pulse ox 99% on room air. Patient states that she has not had any palpitations. She not having feeling any lightheadedness or dizziness. Discharge diagnosis: 1. New onset of atrial fibrillation with RVR, paroxysmal atrial fibrillation. 2. Acute systolic heart failure. Cardiac consult appreciated. 3. Possible TIA. 4. Hypertension, hypertensive cardiovascular disease. 5. Ischemic cardiomyopathy with worsening EF. 6. Hyperlipidemia. 7. Coronary artery disease. 8. Mild intermittent asthma without exacerbation. 9. Morbid obesity with BMI 48. DISCHARGE DISPOSITION Home. Impression and plan of care have been directed as dictated by the signing physician. Erin Mayorga nurse practitioner acting as scribe for signing physician. Patient Condition at Discharge: Serious Plan - Discharge Summary Discharge Rx Participant: Yes New Discharge Prescriptions: New Amiodarone [Cordarone] 400 mg PO BID #60 tab Furosemide [Lasix] 40 mg PO DAILY #30 tab Pantoprazole [Protonix] 40 mg PO AC-BRKFST #30 tablet. Apixaban [Eliquis] 5 mg PO BID 30 Days #60 tab Spironolactone [Aldactone] 12.5 mg PO DAILY #30 tab Continue Beclomethasone Dip 80 Mcg/Puff [Qvar 80 mcg] 2 puff INHALATION RT-BID Atorvastatin [Lipitor] 80 mg PO HS #30 tab Nitroglycerin Sl Tabs [Nitrostat] 0.4 mg SUBLINGUAL Q5M PRN #25 tab PRN Reason: Chest Pain Clopidogrel [Plavix] 75 mg PO DAILY #30 tab Metoprolol Tartrate [Lopressor] 12.5 mg PO BID Aspirin 81 mg PO DAILY chew Magnesium Oxide [Mag-Ox] 400 mg PO DAILY tab Losartan [Cozaar] 50 mg PO DAILY Discharge Medication List Beclomethasone Dip 80 Mcg/Puff [Qvar 80 mcg] 2 puff INHALATION RT-BID 02/06/20 [History] Atorvastatin [Lipitor] 80 mg PO HS #30 tab 02/09/20 [Rx] Clopidogrel [Plavix] 75 mg PO DAILY #30 tab 02/09/20 [Rx] Nitroglycerin Sl Tabs [Nitrostat] 0.4 mg SUBLINGUAL Q5M PRN #25 tab 02/09/20 [Rx] Metoprolol Tartrate [Lopressor] 12.5 mg PO BID 04/06/20 [History] Aspirin 81 mg PO DAILY chew 04/07/20 [Rx] Magnesium Oxide [Mag-Ox] 400 mg PO DAILY tab 04/07/20 [Rx] Apixaban [Eliquis] 5 mg PO BID 30 Days #60 tab 06/17/21 [Rx] Losartan [Cozaar] 50 mg PO DAILY 06/17/21 [History] Amiodarone [Cordarone] 400 mg PO BID #60 tab 06/19/21 [Rx] Furosemide [Lasix] 40 mg PO DAILY #30 tab 06/19/21 [Rx] Pantoprazole [Protonix] 40 mg PO AC-BRKFST #30 tablet. 06/19/21 [Rx] Spironolactone [Aldactone] 12.5 mg PO DAILY #30 tab 06/19/21 [Rx] Follow up Appointment(s)/Referral(s): Bren Freire MD [STAFF PHYSICIAN] - 2 Weeks Barbie Cleary MD [Primary Care Provider] - 1-2 days Activity/Diet/Wound Care/Special Instructions: Copay for Eliquis is $30, free 1st month coupon will be applied, patient has $10/month copay card for future refills.
[2021-06-19] MEDS ORDERED: METOPROLOL TARTRATE 25 MG TAB PO STA (11:01)
[2021-06-19 12:21] VITALS: BP 134/73; PULSE 104; RESP 16; TEMP 98.3
--- NOTE | 2021-06-19 14:44 | P.PN ---
Subjective Progress Note Date: 06/19/21 HISTORY OF PRESENT ILLNESS: his is a pleasant 56 female past medical history significant for coronary artery disease status post PCI in the setting of an acute ST elevated myocardial infarction January 2020, asthma, hypertension, dyslipidemia and obesity, former smoker. She follows in the office with Dr. Frerie. We have been asked to see in consultation for new onset atrial fibrillation. She presented to the emergency department with complaints of palpitations and shortness of breath. Patient states over the past few days she's been having intermittent episodes of palpitations and worsening shortness of breath. Patient also states that 2 weeks ago she had an episode where she had difficulty speaking and confusion lasted less than a minute and resolved on its own. She denies any chest pain, lower extremity edema, fatigue, weakness, lightheadedness, syncope. She denies history of stroke or diabetes. She is a former smoker. DIAGNOSTICS EKG reveals atrial fibrillation with rapid ventricular response, heart rate 150s. Telemetry tracings on exam indicate atrial fibrillation HR 100-120s Chest xray correlate for developing CHF and pulmonary vascular congestion. Laboratory reviewed, WBC 12.3, hemoglobin 13.7, platelets 215, sodium 140, potassium 4.1, BUN 17, serum creatinine 0.6, AST 52, ALT 70, troponin negative 2, TSH within normal limits Current home cardiac medications include aspirin 1 mg daily, atorvastatin 80 mg nightly, Plavix 70 mg daily, metoprolol tartrate 12.5 mg twice a day, losartan 50 mg daily Echocardiogram revealed atrial fibrillation EF 30-35%, basal inferior LV, basal inferior septal LV and mid inferior and inferior septal LV wall hypokinetic, apical LV wall hypokinetic, moderate mitral regurgitation, mild tricuspid regurgitation Previous Echocardiogram in March 2020- EF 45-50% March 2020: She underwent cardiac catheterization via the right femoral artery with Dr. Freire revealing no significant obstructive disease in the circumflex, LAD or RCA. She had a patent stent in the LAD with an ejection fraction of approximately 50%. 06/18/2021 Patient examined this morning at the bedside. Patient denies chest pain or pr essure. She denies shortness of breath. She remains in atrial fibrillation. She remains on IV amiodarone and IV Lasix. 06/19/2021 Patient examined this morning at the bedside. Patient denies chest pain or pressure. She denies shortness of breath. Telemetry reveals atrial fibrillation with mild and controlled ventricular rate. She has been cleared for discharge by internal medicine. PHYSICAL EXAM: VITAL SIGNS: Reviewed. GENERAL: Well-developed in no acute distress. NECK: Supple. No JVD or thyromegaly LUNGS: Respirations even and unlabored. Lungs essentially clear to auscultation bilaterally. HEART: Irregular rate and rhythm. S1 and S2 heard. EXTREMITIES: Normal range of motion. No clubbing or cyanosis. Peripheral pulses intact. No lower extremity edema ASSESSMENT: Palpitations, shortness of breath New onset Paroxysmal atrial [id number] score 4 Possible TIA 2 weeks ago Coronary artery disease status post PCI in the setting of an acute ST elevated myocardial infarction January 2020 Cardiomyopathy- decreased EF 30-35%, most likely due to atrial fibrillation with RVR Acute systolic heart failure History of asthma Hypertension Dyslipidemia Obesity Former smoker PLAN: Increase metoprolol to 75 mg twice a day Continue additional cardiac medications Further recommendations pending patient course Nurse practitioner note has been reviewed by physician. Signing provider agrees with the documented findings, assessment, and plan of care. Objective - Vital Signs Vital signs: Vital Signs Temp 98.3 F 06/19/21 11:00 Pulse 104 H 06/19/21 11:00 Resp 16 06/19/21 11:00 BP 134/73 06/19/21 11:00 Pulse Ox 96 06/19/21 11:00 Intake & Output 06/18/21 06/19/21 06/19/21 18:59 06:59 18:59 Intake Total 1202.838 600 Output Total 1400 1350 1100 Balance -197.162 -1350 -500 Weight 113.8 kg Intake: Intake, IV Titration 245.838 Amount Amiodarone 450 mg In 245.838 Dextrose 5% in Water 250 ml @ 0.5 MG/MIN 16.667 mls/hr IV .Q15H JEANNE Rx#: [id number] Oral 957 600 Output: Urine 1400 1350 1100 Other: Voiding Method Toilet Toilet # Voids 1 2 - Labs CBC & Chem 7: 06/19/21 07:30 06/18/21 09:18
[2021-06-19] MEDS ORDERED: METOPROLOL TARTRATE 25 MG TAB PO SCH (21:00)
== END 2021-06-19 13:59 | disposition home or self-care (01) | DRG 308 ==
LOC: EC 06:52 → 3SCARD 08:45
PROVIDERS: ADMIT Internal Medicine; ATTEND Internal Medicine
DX: I48.0 Paroxysmal atrial fibrillation (principal); I50.21 Acute systolic (congestive) heart failure; G45.9 Transient cerebral ischemic attack, unspecified; Z68.42 Body mass index [BMI] 45.0-49.9, adult; E66.01 Morbid (severe) obesity due to excess calories; E78.5 Hyperlipidemia, unspecified; I25.10 Atherosclerotic heart disease of native coronary artery without angina pectoris; I25.2 Old myocardial infarction; I25.5 Ischemic cardiomyopathy; J45.20 Mild intermittent asthma, uncomplicated; I11.0 Hypertensive heart disease with heart failure; Z79.01 Long term (current) use of anticoagulants; Z79.02 Long term (current) use of antithrombotics/antiplatelets; Z79.82 Long term (current) use of aspirin; Z79.899 Other long term (current) drug therapy; Z82.49 Family history of ischemic heart disease and other diseases of the circulatory system; Z83.3 Family history of diabetes mellitus; Z86.73 Personal history of transient ischemic attack (TIA), and cerebral infarction without residual deficits; Z95.5 Presence of coronary angioplasty implant and graft
CPT/HCPCS: 36415; 70450; 70549; 70553; 71046; 80048; 80053; 80061; 83735; 84443; 84484; 85025; 85610; 85730; 93005; 93306; 96374; 96375; 99291

== ENCOUNTER → 2022-05-11 | Outpatient (CLI) | payer BC ==
--- NOTE | 2022-05-15 17:12 | MM ---
Reason for Exam: Screening (asymptomatic). Last mammogram was performed 1 year(s) and 1 month(s) ago. Patient History: Menarche at age 12. First Full-Term at age 26. Postmenopausal. Endometrial cancer, age 26. Risk Values: Mirna 5 year model risk: 1.4%. NCI Lifetime model risk: 8.9%. Prior Study Comparison: 07/03/2018 Bilateral Screening Mammogram, [facility]. 01/07/2020 Bilateral Screening Mammogram, [facility]. 03/18/2021 Bilateral Screening Mammogram, [facility]. Tissue Density: There are scattered fibroglandular densities. Findings: Analyzed By CAD. There is no suspicious group of microcalcifications or new suspicious mass in either breast. Overall Assessment: Negative, BI-RAD 1 Management: Screening Mammogram of both breasts in 1 year. 1. Patient should continue monthly self breast exams. 2. A clinical breast exam by your physician is recommended on an annual basis. 3. This exam should not preclude additional follow-up of suspicious palpable abnormalities. Electronically signed and approved by: Nikole Walden M.D. Radiologist
== END | disposition home or self-care (01) ==
LOC: RADMAMWWP 07:33
PROVIDERS: ATTEND Family Medicine
DX: Z12.31 Encounter for screening mammogram for malignant neoplasm of breast (principal); R92.8 Other abnormal and inconclusive findings on diagnostic imaging of breast
CPT/HCPCS: 77067

== ENCOUNTER → 2023-07-04 | Outpatient (CLI) | payer BC ==
--- NOTE | 2023-07-05 08:30 | MM ---
Reason for Exam: Screening (asymptomatic). Last mammogram was performed 1 year(s) and 2 month(s) ago. Patient History: Menarche at age 12. First Full-Term at age 26. Postmenopausal. Endometrial cancer, age 26. Risk Values: Mirna 5 year model risk: 1.5%. NCI Lifetime model risk: 8.5%. Prior Study Comparison: 01/07/2020 Bilateral Screening Mammogram, [facility]. 03/18/2021 Bilateral Screening Mammogram, [facility]. 05/11/2022 Bilateral MG screening mammo w CAD, [facility]. Tissue Density: There are scattered fibroglandular densities. Findings: Analyzed By CAD. There is no suspicious group of microcalcifications or new suspicious mass in either breast. Benign round calcifications within both breasts. Overall Assessment: Benign, BI-RAD 2 Management: Screening Mammogram of both breasts in 1 year. A clinical breast exam by your physician is recommended on an annual basis and results should be correlated with mammographic findings. Note on Mirna scores and lifetime risk: 1. A Mirna score greater than 3% is considered moderate risk. If this is the case, consider specialist referral to assess eligibility for a risk reducing agent. If overall lifetime risk for the development of breast cancer is 20% or higher, the patient may qualify for future screening with alternating mammogram and breast MRI. Electronically signed and approved by: Eyad Catherine D.O.
== END | disposition home or self-care (01) ==
LOC: RADMAMWWP 14:52
PROVIDERS: ATTEND Family Medicine
DX: Z12.31 Encounter for screening mammogram for malignant neoplasm of breast (principal); Z78.0 Asymptomatic menopausal state
CPT/HCPCS: 77067

== ENCOUNTER 2023-08-30 16:39 | Inpatient (IN) | payer BC ==
[2023-08-30] MEDS ORDERED: ONDANSETRON 4 MG/2 ML VIAL IVP STA (16:54)
[2023-08-30] MEDS ORDERED: SODIUM CHLORIDE 0.9% 1,000 ML IV STA ×2 (16:54→19:49)
[2023-08-30 18:22] LABS: ALT 81 U/L (4-34); AST 90 U/L (14-36); African American GFR (CKD) 43 (>60 ml/min/1.73 sqM); Albumin 2.7 g/dL (3.5-5.0); Alkaline Phosphatase 55 U/L (38-126); Amylase 32 U/L (30-110); Anion Gap 8 mmol/L; Blood Urea Nitrogen 28 mg/dL (7-17); Calcium 7.1 mg/dL (8.4-10.2); Carbon Dioxide 22 mmol/L (22-30); Chloride 103 mmol/L (98-107); Glucose 97 mg/dL (74-99); Lipase 68 U/L (23-300); Non-African American GFR(CKD) 37 (>60 ml/min/1.73 sqM); Sodium 133 mmol/L (137-145); Total Protein 5.5 g/dL (6.3-8.2)
[2023-08-30 18:24] LABS: Potassium 4.5 mmol/L (3.5-5.1)
[2023-08-30 18:36] LABS: Basophils % (A) 0 %; Eosinophils # (A) 0.2 k/uL (0-0.7); Eosinophils % (A) 1 %; HCT 30.9 % (34.0-46.0); HGB 10.1 gm/dL (11.4-16.0); Lymphocytes # (A) 1.3 k/uL (1.0-4.8); Lymphocytes % (A) 6 %; MCH 30.8 pg (25.0-35.0); MCHC 32.8 g/dL (31.0-37.0); MCV 93.9 fL (80.0-100.0); Mean Platelet Volume 8.6; Monocytes # (A) 0.5 k/uL (0-1.0); Monocytes % (A) 2 %; Neutrophils # (A) 19.1 k/uL (1.3-7.7); Neutrophils % (A) 90 %; Platelet Count 134 k/uL (150-450); RBC 3.29 m/uL (3.80-5.40); RDW 14.5 % (11.5-15.5); WBC 21.4 k/uL (3.8-10.6)
[2023-08-30 18:38] LABS: Appearance,Urine Turbid (Clear); Bacteria,Urine Few /hpf; Bilirubin,Urine Negative (Negative); Blood,Urine Large (Negative); Color,Urine Colorless; Glucose,Urine (UA) Negative (Negative); Ketones,Urine Negative (Negative); Leukocyte Esterase,Urine Large (Negative); Nitrite,Urine Negative (Negative); Protein,Urine 1+ (Negative); RBC,Urine 29 /hpf (0-5); Specific Gravity,Urine 1.012 (1.001-1.035); Urobilinogen,Urine <2.0 mg/dL (<2.0); WBC,Urine >182 /hpf (0-5)
--- NOTE | 2023-08-30 19:05 | XR ---
EXAMINATION: XR chest 2V: 08/30/2023 6:55 PM CLINICAL INDICATION: abdominal pain TECHNIQUE: Departmental protocol COMPARISON: 06/17/2021 FINDINGS: The lungs are clear. The pleural spaces are negative. The cardiac silhouette is not enlarged. The remainder of the mediastinal silhouette is unremarkable. The skeletal structures and soft tissues are negative for acute findings. IMPRESSION: No acute radiographic process.
[2023-08-30] MEDS ORDERED: ONDANSETRON 4 MG/2 ML VIAL IVP PRN (19:48)
[2023-08-30] MEDS ORDERED: NALOXONE 0.4 MG/ML 1 ML VIAL IV PRN (19:48)
--- NOTE | 2023-08-30 21:45 | ED ---
General Adult HPI - General Chief complaint: Urogenital Stated complaint: infection Time Seen by Provider: 08/30/23 16:43 Source: patient, EMS, RN notes reviewed, old records reviewed Mode of arrival: EMS Limitations: no limitations - History of Present Illness Initial comments: Patient is a 58-year-old female who was transferred here from [facility] over concern for sepsis and possible UTI. Had lumbar spine decompression surgery secondary to a traumatic hematoma to her 3 weeks ago at [facility]. Has been at [facility] recovering. No longer on thinners. Has had a Bautista catheter placed and removed multiple times however yesterday was retaining urine. He was febrile yesterday as well. Urine was foul smelling and cloudy. [facility] did obtain labs and showed a white count of over 20. Center here for further evaluation. They already provide the patient a dose of Rocephin as well as IV fluids. Vital signs are within acceptable limits. She has no obvious acute complaints at this time. Surgical incision appears clean with no pain. No abdominal pain, chest pain, shortness of breath. She has had intermittent fevers that are controlled with Tylenol. His no other acute complaints at this time. Presents for further evaluation. - Related Data Home Medications Medication Instructions Recorded Confirmed Losartan [Cozaar] 50 mg PO DAILY 06/17/21 08/30/23 Acetaminophen [Acetaminophen ER] 650 mg PO Q4H PRN 08/30/23 08/30/23 Amiodarone [Cordarone] 200 mg PO DAILY@0800 08/30/23 08/30/23 Atorvastatin [Lipitor] 80 mg PO HS 08/30/23 08/30/23 Famotidine [Pepcid] 20 mg PO DAILY@0600 08/30/23 08/30/23 Fluticasone/Vilanterol [Breo 1 puff PO RT-DAILY 08/30/23 08/30/23 Ellipta 100-25 Mcg Inhaler] Gabapentin [Neurontin] 300 mg PO TID@0600,1400,2200 08/30/23 08/30/23 Ipratropium-Albuterol Nebulize 3 ml INHALATION RT-QID PRN 08/30/23 08/30/23 [Duoneb 0.5 mg-3 mg/3 ml Soln] Lactulose [Cephulac] 20 gm PO BID 08/30/23 08/30/23 Lidocaine 5% Patch [Lidoderm] 1 patch TOPICAL DAILY 08/30/23 08/30/23 Magnesium Hydroxide [Milk of 7,200 mg PO DAILY PRN 08/30/23 08/30/23 Magnesia Concentrate] Metoprolol Succinate (ER) [Toprol 25 mg PO DAILY 08/30/23 08/30/23 Xl] Na Phos,M-B/Na Phos,Di-Ba [Fleet 133 ml RECTAL DAILY PRN 08/30/23 08/30/23 Adult] Sennosides/Docusate Sodium 1 tab PO BID@0800,1700 08/30/23 08/30/23 [Senna-S 8.6-50 mg Tablet] bisacodyL [Dulcolax] 10 mg RECTAL DAILY PRN 08/30/23 08/30/23 cefTRIAXone [Rocephin] 1 gm IVPB DIRECTED 08/30/23 08/30/23 methocarbamoL [Robaxin] 1,000 mg PO TID@0600,1400,2200 08/30/23 08/30/23 oxyCODONE-APAP 5-325MG [Percocet 1 tab PO Q4H PRN 08/30/23 08/30/23 5-325 mg] polyethylene glycoL 3350 [Miralax] 17 gm PO DAILY 08/30/23 08/30/23 Previous Rx's Medication Instructions Recorded Furosemide [Lasix] 40 mg PO DAILY #30 tab 06/19/21 Allergies Allergy/AdvReac Type Severity Reaction Status Date / Time No Known Allergies Allergy Verified 08/30/23 17:54 Review of Systems ROS Statement: Those systems with pertinent positive or pertinent negative responses have been documented in the HPI. Review of Systems: CONST: Denies fever EYES: Denies blurry vision ENT: Denies nasal congestion C/V: Denies Chest pain RESP: Denies shortness of breath GI: Denies abdominal pain : Denies dysuria SKIN: Denies rash. MSK: Denies joint pain. NEURO: Denies headache ROS Other: All systems not noted in ROS Statement are negative. Past Medical History Past Medical History: Asthma, Myocardial Infarction ([place]) Additional Past Medical History / Comment(s): eye disorder: arteria tortuosity, SKAD Last Myocardial Infarction Date:: 02/06/20 History of Any Multi-Drug Resistant Organisms: None Reported Past Surgical History: Section Additional Past Surgical History / Comment(s): heart cath with stent x1 02/06/[address] Freire, Hematoma in Spinal Sheat removed (Aug 2023) Past Anesthesia/Blood Transfusion Reactions: No Reported Reaction Past Psychological History: No Psychological Hx Reported Smoking Status: Never smoker Past Alcohol Use History: Occasional Past Drug Use History: None Reported - Past Family History Father Family Medical History: Diabetes Mellitus, Hypertension Additional Family Medical History / Comment(s): diet controlled DM General Exam - General Exam Comments Initial Comments: General: Appears in no acute distress. HEAD: Normal with no signs of head trauma. EYES: PERRLA, EOMI, conjunctiva normal, no discharge. ENT: Hearing grossly intact, normal oropharynx. RESPIRATORY: Clear breath sounds bilaterally. No wheezes, rales, or rhonchi. C/V: Regular rate and rhythm. S1 and S2 auscultated, peripheral pulses 2+ and intact throughout ABD: Abd is soft, nontender, nondistended. Bautista catheter in place, draining a cloudy, sediment filled urine. EXT: Normal range of motion, no obvious deformity SKIN: No rashes or lesions observed on exposed skin. Patient's surgical incision on back is clean, healing appropriately, with no surrounding erythema or suspicion for infection. NEURO: Alert and Oriented 4. Limitations: no limitations Course Vital Signs 08/30/23 08/30/23 08/30/23 16:43 18:30 19:14 Temperature 99.1 F Pulse Rate 68 78 75 Respiratory 18 18 Rate Blood Pressure 99/48 111/91 132/57 O2 Sat by Pulse 98 99 99 Oximetry 08/30/23 20:33 Temperature Pulse Rate 82 Respiratory 18 Rate Blood Pressure 111/51 O2 Sat by Pulse 95 Oximetry Medical Decision Making - Medical Decision Making Was pt. sent in by a medical professional or institution (, PA, PRIVATE BRANCH EXCHANGE SERVICE ADVISOR, urgent care, hospital, or group home...) When possible be specific @ -Patient sent from [facility]. Did you speak to anyone other than the patient for history (EMS, parent, family, police, friend...)? What history was obtained from this source @ -No Did you review nursing and triage notes (agree or disagree)? Why? @ -I reviewed and agree with nursing and triage notes Were old charts reviewed (outside hosp., previous admission, EMS record, old EKG, old radiological studies, urgent care reports/EKG's, group home records)? Report findings @ -Old charts reviewed. Differential Diagnosis (chest pain, altered mental status, abdominal pain women, abdominal pain men, vaginal bleeding, weakness, fever, dyspnea, syncope, headache, dizziness, GI bleed, back pain, seizure, CVA, palpatations, mental health, musculoskeletal)? @ -Differential Fever: Pneumonia, viral URI, endocarditis, myocarditis, pericarditis, otitis, sinusitis, peritonsillar Abscess, retropharyngeal Abscess, epiglottitis, peritonitis, appendicitis, [place] cystitis, diverticulitis, hepatitis, colitis, UTI, PID, TOA, pyelonephritis, prostatitis, epididymitis, meningitis, encephalitis, pulmonary embolism, CVA, thyroid storm, pancreatitis, adrenal crisis, cavernous sinus thrombosis, this is not meant to be an all-inclusive list. EKG interpreted by me (3pts min.). @ -As above X-rays interpreted by me (1pt min.). @ -Chest x-ray reveals no obvious acute cardiopulmonary process. CT interpreted by me (1pt min.). @ -None done U/S interpreted by me (1pt. min.). @ -None done What testing was considered but not performed or refused? (CT, X-rays, U/S, labs)? Why? @ -None What meds were considered but not given or refused? Why? @ -None Did you discuss the management of the patient with other professionals (professionals i.e. , PA, PRIVATE BRANCH EXCHANGE SERVICE ADVISOR, lab, RT, psych nurse, social and political studies professor, desizing machine operator head end, teacher, radio division officer, showcase maker)? Give summary @ -Discussed with the admitting team, TIO Shetty of [facility] who accepted the admission. Was smoking cessation discussed for >3mins.? @ -No Was critical care preformed (if so, how long)? @ -No Were there social determinants of health that impacted care today? How? (Homelessness, low income, unemployed, alcoholism, drug addiction, transportation, low edu. Level, literacy, decrease access to med. care, shelter, rehab)? @ -No Was there de-escalation of care discussed even if they declined (Discuss DNR or withdrawal of care, Hospice)? DNR status @ -No What co-morbidities impacted this encounter? (DM, HTN, Smoking, COPD, CAD, Cancer, CVA, ARF, Chemo, Hep., AIDS, mental health diagnosis, sleep apnea, morbid obesity)? @ -None Was patient admitted / discharged? Hospital course, mention meds given and route, prescriptions, significant lab abnormalities, going to OR and other [facility] info. @ -Based on the patient's presentation and physical exam, presents for febrile illness. Concern for UTI. We will obtain infectious labs. Patient is already on Rocephin from her nursing facility. We will administer IV fluid bolus as well as Zofran. She was in agreement this plan. Vital signs within acceptable limits. EKG unremarkable. Patient's labs remarkable for leukocytosis of 21. Urine concerning for UTI. Remainder of the labs except for limits. Remainder workup unremarkable. Discussed results with the patient. She'll be admitted to the hospital. She was in agreement this plan. Culture sent. I discussed with the admitting team, TIO Shetty of [facility] who accepted the patient. Undiagnosed new problem with uncertain prognosis? @ -No Drug Therapy requiring intensive monitoring for toxicity (Heparin, Nitro, Insulin, Cardizem)? @ -No Were any procedures done? @ -No Diagnosis/symptom? @ -UTI Acute, or Chronic, or Acute on Chronic? @ -Acute Uncomplicated (without systemic symptoms) or Complicated (systemic symptoms)? @ -Complicated Side effects of treatment? @ -No Exacerbation, Progression, or Severe Exacerbation? @ -No Poses a threat to life or bodily function? How? (Chest pain, [place], CO, pneumonia, PE, COPD, DKA, ARF, appy, cholecystitis, CVA, Diverticulitis, Homicidal, Suicidal, threat to staff... and all critical care pts) @ -yes - Lab Data Result diagrams: 08/30/23 17:24 08/30/23 17:24 Lab Results 08/30/23 08/30/23 08/30/23 Range/Units 17:24 17:24 17:24 WBC 21.4 H (3.8-10.6) k/uL RBC 3.29 L (3.80-5.40) m/uL Hgb 10.1 L (11.4-16.0) gm/dL Hct 30.9 L (34.0-46.0) % MCV 93.9 (80.0-100.0) fL MCH 30.8 (25.0-35.0) pg MCHC 32.8 (31.0-37.0) g/dL RDW 14.5 (11.5-15.5) % Plt Count 134 L (150-450) k/uL MPV 8.6 Neutrophils % 90 % Lymphocytes % 6 % Monocytes % 2 % Eosinophils % 1 % Basophils % 0 % Neutrophils # 19.1 H (1.3-7.7) k/uL Lymphocytes # 1.3 (1.0-4.8) k/uL Monocytes # 0.5 (0-1.0) k/uL Eosinophils # 0.2 (0-0.7) k/uL Basophils # 0.0 (0-0.2) k/uL Sodium 133 L (137-145) mmol/L Potassium 4.5 (3.5-5.1) mmol/L Chloride 103 (98-107) mmol/L Carbon Dioxide 22 (22-30) mmol/L Anion Gap 8 mmol/L BUN 28 H (7-17) mg/dL Creatinine 1.53 H (0.52-1.04) mg/dL Est GFR (CKD-EPI)AfAm 43 (>60 ml/min/1.73 sqM) Est GFR (CKD-EPI)NonAf 37 (>60 ml/min/1.73 sqM) Glucose 97 (74-99) mg/dL Plasma Lactic Acid César (0.7-2.0) mmol/L Calcium 7.1 L (8.4-10.2) mg/dL Total Bilirubin 1.0 (0.2-1.3) mg/dL AST 90 H (14-36) U/L ALT 81 H (4-34) U/L Alkaline Phosphatase 55 (38-126) U/L Total Protein 5.5 L (6.3-8.2) g/dL Albumin 2.7 L (3.5-5.0) g/dL Amylase 32 (30-110) U/L Lipase 68 (23-300) U/L Urine Color Colorless Urine Appearance Turbid H (Clear) Urine pH 6.0 (5.0-8.0) Ur Specific [place] 1.012 (1.001-1.035) Urine Protein 1+ H (Negative) Urine Glucose (UA) Negative (Negative) Urine Ketones Negative (Negative) Urine Blood Large H (Negative) Urine Nitrite Negative (Negative) Urine Bilirubin Negative (Negative) Urine Urobilinogen <2.0 (<2.0) mg/dL Ur Leukocyte Esterase Large H (Negative) Urine RBC 29 H (0-5) /hpf Urine WBC >182 H (0-5) /hpf Urine WBC Clumps Many H (None) /hpf Urine Bacteria Few H (None) /hpf Influenza Type A (PCR) (Not Detectd) Influenza Type B (PCR) (Not Detectd) RSV (PCR) (Not Detectd) SARS-CoV-2 (PCR) (Not Detectd) 08/30/23 08/30/23 Range/Units 17:24 17:24 WBC (3.8-10.6) k/uL RBC (3.80-5.40) m/uL Hgb (11.4-16.0) gm/dL Hct (34.0-46.0) % MCV (80.0-100.0) fL MCH (25.0-35.0) pg MCHC (31.0-37.0) g/dL RDW (11.5-15.5) % Plt Count (150-450) k/uL MPV Neutrophils % % Lymphocytes % % Monocytes % % Eosinophils % % Basophils % % Neutrophils # (1.3-7.7) k/uL Lymphocytes # (1.0-4.8) k/uL Monocytes # (0-1.0) k/uL Eosinophils # (0-0.7) k/uL Basophils # (0-0.2) k/uL Sodium (137-145) mmol/L Potassium (3.5-5.1) mmol/L Chloride (98-107) mmol/L Carbon Dioxide (22-30) mmol/L Anion Gap mmol/L BUN (7-17) mg/dL Creatinine (0.52-1.04) mg/dL Est GFR (CKD-EPI)AfAm (>60 ml/min/1.73 sqM) Est GFR (CKD-EPI)NonAf (>60 ml/min/1.73 sqM) Glucose (74-99) mg/dL Plasma Lactic Acid César 1.5 (0.7-2.0) mmol/L Calcium (8.4-10.2) mg/dL Total Bilirubin (0.2-1.3) mg/dL AST (14-36) U/L ALT (4-34) U/L Alkaline Phosphatase (38-126) U/L Total Protein (6.3-8.2) g/dL Albumin (3.5-5.0) g/dL Amylase (30-110) U/L Lipase (23-300) U/L Urine Color Urine Appearance (Clear) Urine pH (5.0-8.0) Ur Specific [place] (1.001-1.035) Urine Protein (Negative) Urine Glucose (UA) (Negative) Urine Ketones (Negative) Urine Blood (Negative) Urine Nitrite (Negative) Urine Bilirubin (Negative) Urine Urobilinogen (<2.0) mg/dL Ur Leukocyte Esterase (Negative) Urine RBC (0-5) /hpf Urine WBC (0-5) /hpf Urine WBC Clumps (None) /hpf Urine Bacteria (None) /hpf Influenza Type A (PCR) Not Detected (Not Detectd) Influenza Type B (PCR) Not Detected (Not Detectd) RSV (PCR) Not Detected (Not Detectd) SARS-CoV-2 (PCR) Not Detected (Not Detectd) - EKG Data -: EKG Interpreted by Me EKG Comments: 12-lead Electrocardiogram Interpretation Note EKG was reviewed and interpreted by myself. 12-lead ECG performed at 1803 is interpreted by me as revealing normal sinus rhythm at a rate of 69 beats per minute. [place] is normal. [place] intervals 161 ms, QRS duration is 92 ms, QTc is 424 ms.. There were no ST or T wave abnormalities to suggest myocardial ischemia or injury. R wave progression across the precordium was satisfactory. By my interpretation this EKG is non-diagnostic for acute ischemia.. Disposition Clinical Impression: UTI (urinary tract infection) Disposition: ADMITTED IP TO THIS HOSP Condition: Stable Time of Disposition: 19:40
[2023-08-30] MEDS ORDERED: IPRATROPIUM-ALBUTEROL 3 ML NEB INHALATION PRN (21:51)
[2023-08-30] MEDS: GABAPENTIN 300 MG CAP PO SCH (22:59)
[2023-08-30] MEDS: methocarbamoL 500 MG TAB PO SCH (22:59)
[2023-08-31] MEDS: oxyCODONE-APAP 5-325MG 1 EACH TAB PO PRN (05:49)
[2023-08-31] MEDS: methocarbamoL 500 MG TAB PO SCH ×3 (05:49→20:56)
[2023-08-31] MEDS: GABAPENTIN 300 MG CAP PO SCH ×3 (05:49→20:57)
[2023-08-31] MEDS: FAMOTIDINE 20 MG TAB PO SCH (05:49)
[2023-08-31] MEDS: SYMBICORT 80-4.5 MCG INHALER INHALATION SCH ×2 (09:12→20:54)
[2023-08-31] MEDS: LACTULOSE 20 GM/30 ML CUP PO SCH ×3 (10:09→20:51)
[2023-08-31] MEDS: LOSARTAN 50 MG TAB PO SCH (10:10)
[2023-08-31] MEDS: FUROSEMIDE 40 MG TAB PO SCH (10:10)
[2023-08-31] MEDS: AMIODARONE 200 MG TAB PO SCH (10:10)
[2023-08-31] MEDS: METOPROLOL SUCCINATE (ER) 25 MG TAB.ER.24H PO SCH (10:10)
[2023-08-31 11:11] LABS: Basophils # (A) 0.04 X 10*3/uL (0.00-0.10); Basophils % (A) 0.2 %; Eosinophils # (A) 0.12 X 10*3/uL (0.04-0.35); Eosinophils % (A) 0.7 %; HCT 30.8 % (37.2-46.3); HGB 9.9 d/dL (12.0-15.0); Lymphocytes # (A) 1.03 X 10*3/uL (0.90-5.00); Lymphocytes % (A) 5.8 %; MCH 30.1 pg (27.0-32.0); MCHC 32.1 d/dL (32.0-37.0); MCV 93.6 FL (80.0-97.0); Mean Platelet Volume 10.2 FL (9.5-12.2); Monocytes # (A) 0.73 X 10*3/uL (0.20-1.00); Monocytes % (A) 4.1 %; NRBC Per 100 WBC 0 X 10*3/uL (0.00-0.01); Neutrophils # (A) 15.56 X 10*3/uL (1.80-7.70); Neutrophils % (A) 87.3 %; Platelet Count 130 X 10*3/uL (140-440); RBC 3.29 X 10*6/uL (4.10-5.20); RDW 14.9 % (11.5-14.5); WBC 17.82 X 10*3/uL (4.50-10.00)
[2023-08-31 12:12] LABS: BUN/Creat Ratio 15.25 Ratio (12.00-20.00); Blood Urea Nitrogen 18.3 mg/dL (9.0-27.0); Calcium 7.5 mg/dL (8.7-10.3); Carbon Dioxide 19.7 mmol/L (21.6-31.8); Chloride 112 mmol/L (96-109); Glucose 86 mg/dL (70-110); Potassium 3.8 mmol/L (3.5-5.5); Sodium 144 mmol/L (135-145)
--- NOTE | 2023-08-31 13:09 | P.HPIM ---
History of Present Illness H&P Date: 08/31/23 History of present illness; patient is a 58-year-old lady who presented to the ER for fevers. Patient was at [facility] and was transferred to our facility with concern for possible UTI. Patient was recovering at facility after undergoing lumbar spine decompression surgery secondary to a traumatic hematoma to her 3 weeks ago at [facility]. Patient was discharged with a Bautista to the facility, and noticed that the patient urine was very foul-smelling. Patient was also spiking fevers at the facility. His chest pain or shortness of breath. No complaint of nausea, vomiting abdominal pain. Laboratory data obtained at the facility showed patient to have a white count of 20,000. For concern of UTI she was sent to [facility] Initial lab work done in the ER showed [place] 11.4, hemoglobin 10.1, platel ets, 34, sodium 133, potassium 4.5, BUN 28, creatinine 1.53, AST 90, ALT 81 UA shows large leukocyte [place], urine WBC more than 182 Influenza A not detected Influenza B not detected RSV not detected COVID-19 not detected Chest x-ray done in the ER showed no acute cardiopulmonary process She was admitted to medicine service REVIEW OF SYSTEMS: CONSTITUTIONAL: No fever, no malaise, no fatigue. HEENT: No recent visual problems or hearing problems. Denied any sore throat. CARDIOVASCULAR: No chest pain, orthopnea, PND, no palpitations, no syncope. PULMONARY: No shortness of breath, no cough, no hemoptysis. GASTROINTESTINAL: No diarrhea, no nausea, no vomiting, no abdominal pain. NEUROLOGICAL: No headaches, no weakness, no numbness. HEMATOLOGICAL: Denies any bleeding or petechiae. GENITOURINARY: Denies any burning micturition, frequency, or urgency. MUSCULOSKELETAL/RHEUMATOLOGICAL: Denies any joint pain, swelling, or any muscle pain. ENDOCRINE: Denies any polyuria or polydipsia. The rest of the 14-point review of systems is negative. PHYSICAL EXAMINATION: GENERAL: The patient is alert and oriented x3, not in any acute distress. Well developed, well nourished. HEENT: Pupils are round and equally reacting to light. EOMI. No scleral icterus. No conjunctival pallor. Normocephalic, atraumatic. No pharyngeal erythema. No thyromegaly. CARDIOVASCULAR: S1 and S2 present. No murmurs, rubs, or gallops. PULMONARY: Chest is clear to auscultation, no wheezing or crackles. ABDOMEN: Soft, nontender, nondistended, normoactive bowel sounds. No palpable organomegaly. MUSCULOSKELETAL: No joint swelling or deformity. EXTREMITIES: No cyanosis, clubbing, or pedal edema. NEUROLOGICAL: Moving upper extremity, muscle strength is 2/5 in lower extremity which has been stable since her surgery SKIN: No rashes. Assessment and plan Sepsis UTI Atrial fibrillation ablation Hypertension History of recent lumbar spine decompression surgery secondary to a traumatic hematoma Monitor vital signs Monitor CBC Monitor CMP Ordered blood cultures Order urine cultures Continue IV cefepime Continue IV fluids Consult ID Resume home meds Labs and medication were reviewed.. Continue same treatment. Continue with symptomatic treatment. Resume home medication. Monitor labs and vitals. DVT and GI prophylaxis. Further recommendations as per clinical course of the patient Dictation was produced using [employer] dictation software. please excuse any gra mmatical, word or spelling errors. Past Medical History Past Medical History: Asthma, Myocardial Infarction ([place]) Additional Past Medical History / Comment(s): eye disorder: arteria tortuosity, SKAD Last Myocardial Infarction Date:: 02/06/20 History of Any Multi-Drug Resistant Organisms: None Reported Past Surgical History: Section Additional Past Surgical History / Comment(s): heart cath with stent x1 02/06/[address] Freire, Hematoma in Spinal Sheat removed (Aug 2023) Past Anesthesia/Blood Transfusion Reactions: No Reported Reaction Past Psychological History: No Psychological Hx Reported Smoking Status: Never smoker Past Alcohol Use History: Occasional Past Drug Use History: None Reported - Past Family History Father Family Medical History: Diabetes Mellitus, Hypertension Additional Family Medical History / Comment(s): diet controlled DM Medications and Allergies Home Medications Medication Instructions Recorded Confirmed Type Losartan [Cozaar] 50 mg PO DAILY 06/17/21 08/30/23 History Furosemide [Lasix] 40 mg PO DAILY #30 tab 06/19/21 08/30/23 Rx Acetaminophen [Acetaminophen ER] 650 mg PO Q4H PRN 08/30/23 08/30/23 History Amiodarone [Cordarone] 200 mg PO DAILY@0800 08/30/23 08/30/23 History Atorvastatin [Lipitor] 80 mg PO HS 08/30/23 08/30/23 History Famotidine [Pepcid] 20 mg PO DAILY@0600 08/30/23 08/30/23 History Fluticasone/Vilanterol [Breo 1 puff PO RT-DAILY 08/30/23 08/30/23 History Ellipta 100-25 Mcg Inhaler] Gabapentin [Neurontin] 300 mg PO TID@0600,1400,2200 08/30/23 08/30/23 History Ipratropium-Albuterol Nebulize 3 ml INHALATION RT-QID PRN 08/30/23 08/30/23 History [Duoneb 0.5 mg-3 mg/3 ml Soln] Lactulose [Cephulac] 20 gm PO BID 08/30/23 08/30/23 History Lidocaine 5% Patch [Lidoderm] 1 patch TOPICAL DAILY 08/30/23 08/30/23 History Magnesium Hydroxide [Milk of 7,200 mg PO DAILY PRN 08/30/23 08/30/23 History Magnesia Concentrate] Metoprolol Succinate (ER) [Toprol 25 mg PO DAILY 08/30/23 08/30/23 History Xl] Na Phos,M-B/Na Phos,Di-Ba [Fleet 133 ml RECTAL DAILY PRN 08/30/23 08/30/23 History Adult] Sennosides/Docusate Sodium 1 tab PO BID@0800,1700 08/30/23 08/30/23 History [Senna-S 8.6-50 mg Tablet] bisacodyL [Dulcolax] 10 mg RECTAL DAILY PRN 08/30/23 08/30/23 History cefTRIAXone [Rocephin] 1 gm IVPB DIRECTED 08/30/23 08/30/23 History methocarbamoL [Robaxin] 1,000 mg PO TID@0600,1400,2200 08/30/23 08/30/23 History oxyCODONE-APAP 5-325MG [Percocet 1 tab PO Q4H PRN 08/30/23 08/30/23 History 5-325 mg] polyethylene glycoL 3350 [Miralax] 17 gm PO DAILY 08/30/23 08/30/23 History Allergies Allergy/AdvReac Type Severity Reaction Status Date / Time No Known Allergies Allergy Verified 08/30/23 17:54 Physical Exam Vitals: Vital Signs Temp Pulse Resp BP Pulse Ox 08/31/23 10:07 97.8 F 64 18 127/76 95 08/31/23 03:30 70 18 124/64 97 08/30/23 23:25 97.9 F 73 18 130/62 98 08/30/23 23:01 77 18 121/57 96 08/30/23 20:33 82 18 111/51 95 08/30/23 19:14 75 18 132/57 99 08/30/23 18:30 78 111/91 99 08/30/23 16:43 99.1 F 68 18 99/48 98 Intake and Output 08/30/23 08/31/23 08/31/23 22:59 06:59 14:59 Output Total 1400 Balance -1400 Output: Urine 1400 Other: Weight 122.016 kg Results CBC & Chem 7: 08/31/23 07:03 08/31/23 07:03 Labs: Abnormal Lab Results - Last 24 Hours (Table) 08/30/23 08/30/23 08/30/23 Range/Units 17:24 17:24 17:24 WBC 21.4 H (3.8-10.6) k/uL RBC 3.29 L (3.80-5.40) m/uL Hgb 10.1 L (11.4-16.0) gm/dL Hct 30.9 L (34.0-46.0) % Plt Count 134 L (150-450) k/uL Neutrophils # 19.1 H (1.3-7.7) k/uL Sodium 133 L (137-145) mmol/L BUN 28 H (7-17) mg/dL Creatinine 1.53 H (0.52-1.04) mg/dL Calcium 7.1 L (8.4-10.2) mg/dL AST 90 H (14-36) U/L ALT 81 H (4-34) U/L Total Protein 5.5 L (6.3-8.2) g/dL Albumin 2.7 L (3.5-5.0) g/dL Urine Appearance Turbid H (Clear) Urine Protein 1+ H (Negative) Urine Blood Large H (Negative) Ur Leukocyte Esterase Large H (Negative) Urine RBC 29 H (0-5) /hpf Urine WBC >182 H (0-5) /hpf Urine WBC Clumps Many H (None) /hpf Urine Bacteria Few H (None) /hpf
[2023-08-31] MEDS: ACETAMINOPHEN TAB 325 MG TAB PO PRN (14:52)
[2023-08-31] MEDS: CEFEPIME 2 GM in SODIUM CHLORIDE 0.9% 100 ML IVPB SCH ×2 (14:52→20:57)
[2023-08-31] MEDS: ATORVASTATIN 80 MG TAB PO SCH (20:56)
--- NOTE | 2023-08-31 23:28 | P.CONS ---
History of Present Illness - Reason for Consult Consult date: 08/31/23 Complicated urinary tract infection Requesting physician: Cipriano Zamora - Chief Complaint Fever X 1 day - History of Present Illness Patient is a 58-year-old female who recently did have a lumbar spine decompressive surgery secondary to traumatic hematoma that was done about 2 weeks ago at [facility] patient subsequently has been sent to local group home for rehabilitation apparently patient has developed urine retention the requiring Bautista catheter placement and the patient was noticed to have a more foul-smelling urine with a UA sent on 08/29/2023 growing a gram-negative bacilli patient did develop a fever and weakness for the patient was sent to the ER for further evaluation on presentation to hospital the patient did have low- grade fever of 99.1 F patient did have white count 21.4 with a left shift BUN/creatinine was mildly elevated liver exams are mildly elevated urine was positive influenza RSV and COVID testing was negative patient did have a chest x-ray that was negative for pneumonia the patient was started on Rocephin concerning for symptomatic aortic infection infectious disease was consulted for further management of antibiotic therapy, patient currently denies having any pain to the lumbar incision area and the patient still has stitches in and is no drainage Review of Systems Positive point and negatives has been mentioned in the HPI, complete review of systems was performed and all other systems are negative Past Medical History Past Medical History: Asthma, Myocardial Infarction (VT) Additional Past Medical History / Comment(s): eye disorder: arteria tortuosity, SKAD Last Myocardial Infarction Date:: 02/06/20 History of Any Multi-Drug Resistant Organisms: None Reported Past Surgical History: Section Additional Past Surgical History / Comment(s): heart cath with stent x1 02/06/[address] Freire, Hematoma in Spinal Sheat removed (Aug 2023) Past Anesthesia/Blood Transfusion Reactions: No Reported Reaction Past Psychological History: No Psychological Hx Reported Smoking Status: Never smoker Past Alcohol Use History: Occasional Past Drug Use History: None Reported - Past Family History Father Family Medical History: Diabetes Mellitus, Hypertension Additional Family Medical History / Comment(s): diet controlled DM Medications and Allergies Home Medications Medication Instructions Recorded Confirmed Type Losartan [Cozaar] 50 mg PO DAILY 06/17/21 08/30/23 History Furosemide [Lasix] 40 mg PO DAILY #30 tab 06/19/21 08/30/23 Rx Acetaminophen [Acetaminophen ER] 650 mg PO Q4H PRN 08/30/23 08/30/23 History Amiodarone [Cordarone] 200 mg PO DAILY@0800 08/30/23 08/30/23 History Atorvastatin [Lipitor] 80 mg PO HS 08/30/23 08/30/23 History Famotidine [Pepcid] 20 mg PO DAILY@0600 08/30/23 08/30/23 History Fluticasone/Vilanterol [Breo 1 puff PO RT-DAILY 08/30/23 08/30/23 History Ellipta 100-25 Mcg Inhaler] Gabapentin [Neurontin] 300 mg PO TID@0600,1400,2200 08/30/23 08/30/23 History Ipratropium-Albuterol Nebulize 3 ml INHALATION RT-QID PRN 08/30/23 08/30/23 History [Duoneb 0.5 mg-3 mg/3 ml Soln] Lactulose [Cephulac] 20 gm PO BID 08/30/23 08/30/23 History Lidocaine 5% Patch [Lidoderm] 1 patch TOPICAL DAILY 08/30/23 08/30/23 History Magnesium Hydroxide [Milk of 7,200 mg PO DAILY PRN 08/30/23 08/30/23 History Magnesia Concentrate] Metoprolol Succinate (ER) [Toprol 25 mg PO DAILY 08/30/23 08/30/23 History Xl] Na Phos,M-B/Na Phos,Di-Ba [Fleet 133 ml RECTAL DAILY PRN 08/30/23 08/30/23 History Adult] Sennosides/Docusate Sodium 1 tab PO BID@0800,1700 08/30/23 08/30/23 History [Senna-S 8.6-50 mg Tablet] bisacodyL [Dulcolax] 10 mg RECTAL DAILY PRN 08/30/23 08/30/23 History cefTRIAXone [Rocephin] 1 gm IVPB DIRECTED 08/30/23 08/30/23 History methocarbamoL [Robaxin] 1,000 mg PO TID@0600,1400,2200 08/30/23 08/30/23 History oxyCODONE-APAP 5-325MG [Percocet 1 tab PO Q4H PRN 08/30/23 08/30/23 History 5-325 mg] polyethylene glycoL 3350 [Miralax] 17 gm PO DAILY 08/30/23 08/30/23 History Allergies Allergy/AdvReac Type Severity Reaction Status Date / Time No Known Allergies Allergy Verified 08/30/23 17:54 Physical Exam Vitals: Vital Signs Temp Pulse Resp BP Pulse Ox 08/31/23 10:07 97.8 F 64 18 127/76 95 08/31/23 03:30 70 18 124/64 97 08/30/23 23:25 97.9 F 73 18 130/62 98 08/30/23 23:01 77 18 121/57 96 08/30/23 20:33 82 18 111/51 95 08/30/23 19:14 75 18 132/57 99 08/30/23 18:30 78 111/91 99 08/30/23 16:43 99.1 F 68 18 99/48 98 Intake and Output 08/30/23 08/31/23 08/31/23 22:59 06:59 14:59 Output Total 1400 Balance -1400 Output: Urine 1400 Other: Weight 122.016 kg GENERAL DESCRIPTION: Middle-aged FEmale lying in bed, no distress. No tachypnea or accessory muscle of respiration use. HEENT: Shows Pallor , no scleral icterus. Oral mucous membrane is dry. No pharyngeal erythema or thrush NECK: Trachea central, no thyromegaly. LUNGS: Unlabored breathing. Clear to auscultation anteriorly. No wheeze or crackle. HEART: S1, S2, regular rate and rhythm. No loud murmur ABDOMEN: Soft, no tenderness , guarding or rigidity, no organomegaly EXTREMITIES: No edema of feet. SKIN: No rash, no masses palpable. Patient did have a stitches intact to the lumbosacral spine no significant redness or drainage NEUROLOGICAL: The patient is awake, alert, oriented x3, mood and affect normal. Results CBC & Chem 7: 08/31/23 07:03 08/31/23 07:03 Labs: Abnormal Lab Results - Last 24 Hours (Table) 08/30/23 08/30/23 08/30/23 Range/Units 17:24 17:24 17:24 WBC 21.4 H (3.8-10.6) k/uL RBC 3.29 L (3.80-5.40) m/uL Hgb 10.1 L (11.4-16.0) gm/dL Hct 30.9 L (34.0-46.0) % Plt Count 134 L (150-450) k/uL Neutrophils # 19.1 H (1.3-7.7) k/uL Sodium 133 L (137-145) mmol/L BUN 28 H (7-17) mg/dL Creatinine 1.53 H (0.52-1.04) mg/dL Calcium 7.1 L (8.4-10.2) mg/dL AST 90 H (14-36) U/L ALT 81 H (4-34) U/L Total Protein 5.5 L (6.3-8.2) g/dL Albumin 2.7 L (3.5-5.0) g/dL Urine Appearance Turbid H (Clear) Urine Protein 1+ H (Negative) Urine Blood Large H (Negative) Ur Leukocyte Esterase Large H (Negative) Urine RBC 29 H (0-5) /hpf Urine WBC >182 H (0-5) /hpf Urine WBC Clumps Many H (None) /hpf Urine Bacteria Few H (None) /hpf Assessment and Plan (1) UTI (urinary tract infection) Current Visit: Yes Status: Acute Code(s): N39.0 - URINARY TRACT INFECTION, SITE NOT SPECIFIED SNOMED Code(s): 67601253 Plan: 1patient presented hospital with weakness fever in this patient who did have urinary retention requiring a Bautista catheter placement did have a foul-smelling urine positive UA concerning for asymptomatic urinary tract infection, keeping in mind the patient hospitalization we will need to cover for the resistant gram-negative pathogen 2-we will discontinue Rocephin 3-start the patient cefepime 2 g every 8 hours We will follow on clinical condition and cultures to further adjust medication if needed Thank you for this consultation we will follow the patient along with you Dictation was produced using [employer] dictation software. please excuse any grammatical, word or spelling errors. Time with Patient: Greater than 30
[2023-09-01] MEDS: oxyCODONE-APAP 5-325MG 1 EACH TAB PO PRN (01:29)
[2023-09-01] MEDS: GABAPENTIN 300 MG CAP PO SCH ×3 (05:51→21:14)
[2023-09-01] MEDS: CEFEPIME 2 GM in SODIUM CHLORIDE 0.9% 100 ML IVPB SCH (05:51)
[2023-09-01] MEDS: FAMOTIDINE 20 MG TAB PO SCH (05:51)
[2023-09-01] MEDS: methocarbamoL 500 MG TAB PO SCH ×3 (05:51→21:14)
[2023-09-01] MEDS: ACETAMINOPHEN TAB 325 MG TAB PO PRN ×2 (07:25→18:42)
[2023-09-01] MEDS: SYMBICORT 80-4.5 MCG INHALER INHALATION SCH ×2 (07:59→19:59)
[2023-09-01 08:47] LABS: HCT 32.2 % (34.0-46.0); HGB 10.5 gm/dL (11.4-16.0); MCH 30.8 pg (25.0-35.0); MCHC 32.7 g/dL (31.0-37.0); MCV 94.2 fL (80.0-100.0); Platelet Count 126 k/uL (150-450); RBC 3.42 m/uL (3.80-5.40); RDW 14.2 % (11.5-15.5); WBC 8.8 k/uL (3.8-10.6)
[2023-09-01 08:52] LABS: Potassium 3.8 mmol/L (3.5-5.1)
[2023-09-01 08:53] LABS: ALT 77 U/L (4-34); AST 60 U/L (14-36); African American GFR (CKD) 75 (>60 ml/min/1.73 sqM); Albumin 2.5 g/dL (3.5-5.0); Alkaline Phosphatase 77 U/L (38-126); Anion Gap 9 mmol/L; Blood Urea Nitrogen 15 mg/dL (7-17); Calcium 7.9 mg/dL (8.4-10.2); Carbon Dioxide 23 mmol/L (22-30); Chloride 108 mmol/L (98-107); Globulin 2.6 g/dL; Glucose 81 mg/dL (74-99); Non-African American GFR(CKD) 65 (>60 ml/min/1.73 sqM); Sodium 140 mmol/L (137-145); Total Bilirubin 0.6 mg/dL (0.2-1.3); Total Protein 5.1 g/dL (6.3-8.2)
[2023-09-01] MEDS: AMIODARONE 200 MG TAB PO SCH (09:18)
[2023-09-01] MEDS: METOPROLOL SUCCINATE (ER) 25 MG TAB.ER.24H PO SCH (09:18)
[2023-09-01] MEDS: FUROSEMIDE 40 MG TAB PO SCH (09:18)
[2023-09-01] MEDS: LACTULOSE 20 GM/30 ML CUP PO SCH ×3 (09:18→21:15)
[2023-09-01] MEDS: LOSARTAN 50 MG TAB PO SCH (09:18)
--- NOTE | 2023-09-01 12:38 | P.PN ---
Subjective Progress Note Date: 09/01/23 Principal diagnosis: Urinary tract infection and bacteremia Patient is a 58-year-old female who recently did have a lumbar spine decompressive surgery secondary to traumatic hematoma that was done at [facility] patient subsequently has been sent to local detention for rehabilitation apparently patient has developed urine retention the requiring Bautista catheter placement the patient was sent to the hospital for fever concerning for UTI On today's evaluation 09/01/2023, the patient denies any fever or any chills, the patient is breathing comfortably on room air , the patient denies chest pain, shortness of breath and no significant cough, patient denies abdominal pain, no nausea/vomiting or diarrhea, patient denies pain to the lower back area Patient white count has normalized to 8.8, creatinine 0.96, urine culture done on 08/29/2023 is growing E. coli that is sensitive pathogen blood culture drawn on 08/30/2023 is growing staph epi Objective - Vital Signs Vital signs: Vital Signs Temp 98.6 F 09/01/23 08:00 Pulse 63 09/01/23 09:20 Resp 16 09/01/23 08:00 BP 125/73 09/01/23 08:00 Pulse Ox 96 09/01/23 08:00 FiO2 Intake & Output 08/31/23 09/01/23 09/01/23 18:59 06:59 18:59 Output Total 3000 2300 Balance -3000 -2300 Weight 122.016 kg Output: Urine 3000 2300 Other: Voiding Method Indwelling Catheter - Exam GENERAL DESCRIPTION: Middle-aged female lying in bed in no distress RESPIRATORY SYSTEM: Unlabored breathing , decreased breath sounds at bases HEART: S1 S2 regular rate and rhythm , ABDOMEN: Soft , no tenderness EXTREMITIES: No edema feet - Labs CBC & Chem 7: 09/01/23 07:07 09/01/23 07:07 Labs: Abnormal Lab Results - Last 24 Hours (Table) 08/31/23 08/31/23 09/01/23 Range/Units 07:03 07:03 07:07 WBC 17.82 H (4.50-10.00) X 10*3/uL RBC 3.29 L 3.42 L (4.10-5.20) X 10*6/uL Hgb 9.9 L 10.5 L (12.0-15.0) d/dL Hct 30.8 L 32.2 L (37.2-46.3) % RDW 14.9 H (11.5-14.5) % Plt Count 130 L 126 L (140-440) X 10*3/uL Neutrophils # 15.56 H (1.80-7.70) X 10*3/uL Chloride 112 H (96-109) mmol/L Carbon Dioxide 19.7 L (21.6-31.8) mmol/L Anion Gap 12.30 H (4.00-12.00) mmol/L Est GFR (CKD-EPI) 52 L (>=60) Calcium 7.5 L (8.7-10.3) mg/dL AST (14-36) U/L ALT (4-34) U/L Total Protein (6.3-8.2) g/dL Albumin (3.5-5.0) g/dL 09/01/23 Range/Units 07:07 WBC (4.50-10.00) X 10*3/uL RBC (4.10-5.20) X 10*6/uL Hgb (12.0-15.0) d/dL Hct (37.2-46.3) % RDW (11.5-14.5) % Plt Count (140-440) X 10*3/uL Neutrophils # (1.80-7.70) X 10*3/uL Chloride 108 H (96-109) mmol/L Carbon Dioxide (21.6-31.8) mmol/L Anion Gap (4.00-12.00) mmol/L Est GFR (CKD-EPI) (>=60) Calcium 7.9 L (8.7-10.3) mg/dL AST 60 H (14-36) U/L ALT 77 H (4-34) U/L Total Protein 5.1 L (6.3-8.2) g/dL Albumin 2.5 L (3.5-5.0) g/dL Microbiology - Last 24 Hours (Table) 08/30/23 17:35 Blood Culture - Preliminary Blood 08/30/23 17:50 Blood Culture - Preliminary Blood Assessment and Plan (1) UTI (urinary tract infection) Current Visit: Yes Status: Acute Code(s): N39.0 - URINARY TRACT INFECTION, SITE NOT SPECIFIED SNOMED Code(s): 20567626 (2) Positive blood culture Current Visit: Yes Status: Acute Code(s): R78.81 - BACTEREMIA SNOMED Code(s): 308903213 Plan: 1patient presented hospital with weakness fever in this patient who did have urinary retention requiring a Bautista catheter placement did have a foul-smelling urine positive UA concerning for asymptomatic urinary tract infection, keeping in mind the patient hospitalization we will need to cover for the resistant gram-negative pathogen, the patient urine culture done from the [facility] is growing E. coli that is a sensitive pathogen 2-patient also have a positive blood culture with staph epi likely contamination however patient recently did have a back surgery we will repeat a blood culture document clearance and hold on adding vancomycin at this point Family the bedside questions concerned were answered case was also discussed with the admitting team Dictation was produced using [employer] dictation software. please excuse any grammatical, word or spelling errors. 66 Time with Patient: Greater than 30
--- NOTE | 2023-09-01 13:08 | P.PN ---
Subjective Progress Note Date: 09/01/23 patient is a 58-year-old lady who presented to the ER for fevers. Patient was at [facility] and was transferred to our facility with concern for possible UTI. Patient was recovering at facility after undergoing lumbar spine decompression surgery secondary to a traumatic hematoma to her 3 weeks ago at [facility]. Patient was discharged with a Bautista to the facility, and noticed that the patient urine was very foul-smelling. Patient was also spiking fevers at the facility. His chest pain or shortness of breath. No complaint of nausea, vomiting abdominal pain. Laboratory data obtained at the facility showed patient to have a white count of 20,000. For concern of UTI she was sent to [facility] Initial lab work done in the ER showed [place] 11.4, hemoglobin 10.1, platelets, 34, sodium 133, potassium 4.5, BUN 28, creatinine 1.53, AST 90, ALT 81 UA shows large leukocyte Estrace, urine WBC more than 182 Influenza A not detected Influenza B not detected RSV not detected COVID-19 not detected Chest x-ray done in the ER showed no acute cardiopulmonary process She was admitted to medicine service 09/01. Patient seen and examined. Family at the bedside, they had multiple questions, all questions were answered. Urine culture at facility was growing E. coli, antibiotic switched to IV Rocephin by ID. REVIEW OF SYSTEMS: CONSTITUTIONAL: No fever, no malaise,. CARDIOVASCULAR: No chest pain, no palpitations, no syncope. PULMONARY: No shortness of breath, no cough, GASTROINTESTINAL: No diarrhea, no nausea, no vomiting, no abdominal pain. NEUROLOGICAL: No headaches, no weakness, PHYSICAL EXAMINATION: GENERAL: The patient is alert and oriented x3, not in any acute distress. Well developed, well nourished. HEENT: Pupils are round and equally reacting to light. EOMI. No scleral icterus. No conjunctival pallor. Normocephalic, atraumatic. No pharyngeal erythema. No thyromegaly. CARDIOVASCULAR: S1 and S2 present. No murmurs, rubs, or gallops. PULMONARY: Chest is clear to auscultation, no wheezing or crackles. ABDOMEN: Soft, nontender, nondistended, normoactive bowel sounds. No palpable organomegaly. MUSCULOSKELETAL: No joint swelling or deformity. EXTREMITIES: No cyanosis, clubbing, or pedal edema. NEUROLOGICAL: Moving upper extremity, muscle strength is 2/5 in lower extremity which has been stable since her surgery SKIN: Lumbar area surgical incision seen Assessment and plan Sepsis UTI History of atrial fibrillation Hypertension History of recent lumbar spine decompression surgery secondary to a traumatic hematoma Monitor vital signs Monitor CBC Monitor CMP Follow-up on blood cultures Follow-up on urine cultures, cultures growing E. coli which is peres susceptible Continue IV Rocephin DC fluids Follow-up in ID recommendations Labs and medication were reviewed.. Continue same treatment. Continue with symptomatic treatment. Resume home medication. Monitor labs and vitals. DVT and GI prophylaxis. Further recommendations as per clinical course of the patient Dictation was produced using [employer] dictation software. please excuse any grammatical, word or spelling errors. Objective - Vital Signs Vital signs: Vital Signs Temp 98.6 F 09/01/23 08:00 Pulse 63 09/01/23 09:20 Resp 16 09/01/23 08:00 BP 125/73 09/01/23 08:00 Pulse Ox 96 09/01/23 08:00 FiO2 Intake & Output 08/31/23 09/01/23 09/01/23 18:59 06:59 18:59 Output Total 3000 2300 Balance -3000 -2300 Weight 122.016 kg Output: Urine 3000 2300 Other: Voiding Method Indwelling Catheter - Labs CBC & Chem 7: 09/01/23 07:07 09/01/23 07:07 Labs: Abnormal Lab Results - Last 24 Hours (Table) 08/31/23 08/31/23 09/01/23 Range/Units 07:03 07:03 07:07 WBC 17.82 H (4.50-10.00) X 10*3/uL RBC 3.29 L 3.42 L (4.10-5.20) X 10*6/uL Hgb 9.9 L 10.5 L (12.0-15.0) d/dL Hct 30.8 L 32.2 L (37.2-46.3) % RDW 14.9 H (11.5-14.5) % Plt Count 130 L 126 L (140-440) X 10*3/uL Neutrophils # 15.56 H (1.80-7.70) X 10*3/uL Chloride 112 H (96-109) mmol/L Carbon Dioxide 19.7 L (21.6-31.8) mmol/L Anion Gap 12.30 H (4.00-12.00) mmol/L Est GFR (CKD-EPI) 52 L (>=60) Calcium 7.5 L (8.7-10.3) mg/dL AST (14-36) U/L ALT (4-34) U/L Total Protein (6.3-8.2) g/dL Albumin (3.5-5.0) g/dL 09/01/23 Range/Units 07:07 WBC (4.50-10.00) X 10*3/uL RBC (4.10-5.20) X 10*6/uL Hgb (12.0-15.0) d/dL Hct (37.2-46.3) % RDW (11.5-14.5) % Plt Count (140-440) X 10*3/uL Neutrophils # (1.80-7.70) X 10*3/uL Chloride 108 H (96-109) mmol/L Carbon Dioxide (21.6-31.8) mmol/L Anion Gap (4.00-12.00) mmol/L Est GFR (CKD-EPI) (>=60) Calcium 7.9 L (8.7-10.3) mg/dL AST 60 H (14-36) U/L ALT 77 H (4-34) U/L Total Protein 5.1 L (6.3-8.2) g/dL Albumin 2.5 L (3.5-5.0) g/dL Microbiology - Last 24 Hours (Table) 08/30/23 17:35 Blood Culture - Preliminary Blood 08/30/23 17:50 Blood Culture - Preliminary Blood
[2023-09-01] MEDS ORDERED: CEFEPIME 2 GM in SODIUM CHLORIDE 0.9% 100 ML IVPB SCH (18:00)
[2023-09-01 19:27] LABS: African American GFR (CKD) 78 (>60 ml/min/1.73 sqM); Anion Gap 11 mmol/L; Blood Urea Nitrogen 15 mg/dL (7-17); Carbon Dioxide 23 mmol/L (22-30); Chloride 104 mmol/L (98-107); Glucose 119 mg/dL (74-99); Non-African American GFR(CKD) 67 (>60 ml/min/1.73 sqM); Potassium 3.8 mmol/L (3.5-5.1); Sodium 138 mmol/L (137-145)
[2023-09-01] MEDS: ATORVASTATIN 80 MG TAB PO SCH (21:15)
[2023-09-01] MEDS: HEPARIN SODIUM,PORCINE 5,000 UNIT/ML 1 ML VIAL SQ SCH (21:15)
[2023-09-02] MEDS: SODIUM CHLORIDE 0.9% 1,000 ML IV SCH ×2 (01:15→01:17)
[2023-09-02] MEDS: oxyCODONE-APAP 5-325MG 1 EACH TAB PO PRN ×2 (05:58→21:26)
[2023-09-02] MEDS: methocarbamoL 500 MG TAB PO SCH ×3 (05:58→21:14)
[2023-09-02] MEDS: GABAPENTIN 300 MG CAP PO SCH ×3 (05:58→21:13)
[2023-09-02] MEDS: FAMOTIDINE 20 MG TAB PO SCH (05:58)
[2023-09-02] MEDS: SYMBICORT 80-4.5 MCG INHALER INHALATION SCH ×2 (08:35→20:23)
[2023-09-02] MEDS: LACTULOSE 20 GM/30 ML CUP PO SCH ×2 (09:21→21:14)
[2023-09-02] MEDS: HEPARIN SODIUM,PORCINE 5,000 UNIT/ML 1 ML VIAL SQ SCH ×2 (09:21→21:14)
[2023-09-02] MEDS: AMIODARONE 200 MG TAB PO SCH (09:22)
[2023-09-02] MEDS: FUROSEMIDE 40 MG TAB PO SCH (09:22)
[2023-09-02] MEDS: LOSARTAN 50 MG TAB PO SCH (09:22)
[2023-09-02] MEDS: METOPROLOL SUCCINATE (ER) 25 MG TAB.ER.24H PO SCH (09:22)
--- NOTE | 2023-09-02 13:34 | P.PN ---
Subjective Progress Note Date: 09/02/23 patient is a 58-year-old lady who presented to the ER for fevers. Patient was at [facility] and was transferred to our facility with concern for possible UTI. Patient was recovering at facility after undergoing lumbar spine decompression surgery secondary to a traumatic hematoma to her 3 weeks ago at [facility]. Patient was discharged with a Bautista to the facility, and noticed that the patient urine was very foul-smelling. Patient was also spiking fevers at the facility. His chest pain or shortness of breath. No complaint of nausea, vomiting abdominal pain. Laboratory data obtained at the facility showed patient to have a white count of 20,000. For concern of UTI she was sent to [facility] Initial lab work done in the ER showed W [place] 11.4, hemoglobin 10.1, platelets, 34, sodium 133, potassium 4.5, BUN 28, creatinine 1.53, AST 90, ALT 81 UA shows large leukocyte Estrace, urine WBC more than 182 Influenza A not detected Influenza B not detected RSV not detected COVID-19 not detected Chest x-ray done in the ER showed no acute cardiopulmonary process She was admitted to medicine service 09/01. Patient seen and examined. Family at the bedside, they had multiple questions, all questions were answered. Urine culture at facility was growing E. coli, antibiotic switched to IV Rocephin by ID. 09/02. Patient seen and examined. No acute issues overnight. Currently sitting in the sofa chair, states she feels much stronger compared to yesterday REVIEW OF SYSTEMS: CONSTITUTIONAL: No fever, no malaise,. CARDIOVASCULAR: No chest pain, no palpitations, no syncope. PULMONARY: No shortness of breath, no cough, GASTROINTESTINAL: No diarrhea, no nausea, no vomiting, no abdominal pain. NEUROLOGICAL: No headaches, no weakness, PHYSICAL EXAMINATION: GENERAL: The patient is alert and oriented x3, not in any acute distress. Well developed, well nourished. HEENT: Pupils are round and equally reacting to light. EOMI. No scleral icterus. No conjunctival pallor. Normocephalic, atraumatic. No pharyngeal erythema. No thyromegaly. CARDIOVASCULAR: S1 and S2 present. No murmurs, rubs, or gallops. PULMONARY: Chest is clear to auscultation, no wheezing or crackles. ABDOMEN: Soft, nontender, nondistended, normoactive bowel sounds. No palpable organomegaly. MUSCULOSKELETAL: No joint swelling or deformity. EXTREMITIES: No cyanosis, clubbing, or pedal edema. NEUROLOGICAL: Moving upper extremity, muscle strength is 2/5 in lower extremity which has been stable since her surgery SKIN: Lumbar area surgical incision seen Assessment and plan Sepsis UTI History of atrial fibrillation Hypertension History of recent lumbar spine decompression surgery secondary to a traumatic hematoma Monitor vital signs Monitor CBC Monitor CMP Follow-up on blood cultures Follow-up on urine cultures, cultures growing E. coli which is peres susceptible Continue IV Rocephin Follow-up in ID recommendations Labs and medication were reviewed.. Continue same treatment. Continue with symptomatic treatment. Resume home medication. Monitor labs and vitals. DVT and GI prophylaxis. Further recommendations as per clinical course of the patient Dictation was produced using [employer] dictation software. please excuse any grammatical, word or spelling errors. Objective - Vital Signs Vital signs: Vital Signs Temp 99.2 F 09/02/23 08:28 Pulse 65 09/02/23 08:28 Resp 18 09/02/23 08:28 BP 156/85 09/02/23 08:28 Pulse Ox 94 L 09/02/23 08:28 FiO2 Intake & Output 09/01/23 09/02/23 09/02/23 18:59 06:59 18:59 Output Total 4100 1000 Balance -4100 -1000 Output: Urine 4100 1000 Other: Voiding Method Indwelling Catheter Indwelling Catheter Indwelling Catheter # Voids 1 - Labs CBC & Chem 7: 09/01/23 07:07 09/01/23 18:47 Labs: Abnormal Lab Results - Last 24 Hours (Table) 09/01/23 Range/Units 18:47 Glucose 119 H (74-99) mg/dL Calcium 8.0 L (8.4-10.2) mg/dL Microbiology - Last 24 Hours (Table) 08/30/23 17:35 Blood Culture Gram Stain - Preliminary Blood Blood Culture - Preliminary Coagulase Negative Staph 08/30/23 17:50 Blood Culture - Preliminary Blood 08/30/23 17:24 Urine Culture - Preliminary Urine,Voided Gram Neg Bacilli
--- NOTE | 2023-09-02 15:19 | P.PN ---
Subjective Progress Note Date: 09/02/23 Principal diagnosis: Urinary tract infection and bacteremia Patient is a 58-year-old female who recently did have a lumbar spine decompressive surgery secondary to traumatic hematoma that was done at [facility] patient subsequently has been sent [facility] apparently patient has developed urine retention the requiring Bautista catheter placement the patient was sent to the hospital for fever concerning for UTI On today's evaluation 09/02/2023, the patient remains to be afebrile, the patient is breathing comfortably on room air without the need for supplemental oxygen , the patient denies chest pain or cough, patient denies nausea/vomiting or diarrhea and denies any abdominal pain, patient denies pain to the lower back area Patient white count has normalized to 8.8 as of yesterday no CBC was done today, creatinine 0.94, urine culture is growing E. coli that is sensitive pathogen blood culture drawn on 08/30/2023 is growing staph epi Objective - Vital Signs Vital signs: Vital Signs Temp 97.5 F L 09/02/23 12:10 Pulse 57 L 09/02/23 12:10 Resp 18 09/02/23 12:10 BP 127/82 09/02/23 12:10 Pulse Ox 97 09/02/23 12:10 FiO2 Intake & Output 09/01/23 09/02/23 09/02/23 18:59 06:59 18:59 Output Total 4100 1000 1325 Balance -4100 -1000 -1325 Output: Urine 4100 1000 1325 Other: Voiding Method Indwelling Catheter Indwelling Catheter Indwelling Catheter # Voids 1 # Bowel Movements 1 - Exam GENERAL DESCRIPTION: Middle-aged female lying in bed in no distress RESPIRATORY SYSTEM: Unlabored breathing , decreased breath sounds at bases HEART: S1 S2 regular rate and rhythm , ABDOMEN: Soft , no tenderness EXTREMITIES: No edema feet - Labs CBC & Chem 7: 09/01/23 07:07 09/01/23 18:47 Labs: Abnormal Lab Results - Last 24 Hours (Table) 09/01/23 Range/Units 18:47 Glucose 119 H (74-99) mg/dL Calcium 8.0 L (8.4-10.2) mg/dL Microbiology - Last 24 Hours (Table) 08/30/23 17:24 Urine Culture - Final Urine,Voided Escherichia coli 08/30/23 17:35 Blood Culture Gram Stain - Preliminary Blood Blood Culture - Preliminary Coagulase Negative Staph 08/30/23 17:50 Blood Culture - Preliminary Blood Assessment and Plan (1) UTI (urinary tract infection) Current Visit: Yes Status: Acute Code(s): N39.0 - URINARY TRACT INFECTION, SITE NOT SPECIFIED SNOMED Code(s): 93807990 (2) Positive blood culture Current Visit: Yes Status: Acute Code(s): R78.81 - BACTEREMIA SNOMED Code(s): 929617571 Plan: 1patient presented hospital with weakness fever in this patient who did have urinary retention requiring a Bautista catheter placement did have a foul-smelling urine positive UA concerning for asymptomatic urinary tract infection, keeping in mind the patient hospitalization we will need to cover for the resistant gram-negative pathogen, the patient urine culture done from the [facility] is growing E. coli that is a sensitive pathogen 2-patient also have a positive blood culture with staph epi likely contamination however patient recently did have a back surgery, blood culture has been repeated to document clearance and hold on adding vancomycin at this point 3-plan is to finish therapy with oral Ceftin 7-10 days Dictation was produced using [employer] software. please excuse any grammatical, word or spelling errors. 66 Time with Patient: Less than 30
[2023-09-02] MEDS ORDERED: SODIUM CHLORIDE 0.9% 1,000 ML IV SCH (19:15)
[2023-09-02] MEDS: ATORVASTATIN 80 MG TAB PO SCH (21:14)
[2023-09-02] MEDS: ACETAMINOPHEN TAB 325 MG TAB PO PRN (23:48)
[2023-09-03 03:03] VITALS: RESP 16
[2023-09-03] MEDS: methocarbamoL 500 MG TAB PO SCH ×2 (05:48→14:36)
[2023-09-03] MEDS: GABAPENTIN 300 MG CAP PO SCH ×2 (05:48→14:36)
[2023-09-03] MEDS: FAMOTIDINE 20 MG TAB PO SCH (05:48)
[2023-09-03] MEDS: SYMBICORT 80-4.5 MCG INHALER INHALATION SCH ×2 (07:58→18:24)
[2023-09-03] MEDS: METOPROLOL SUCCINATE (ER) 25 MG TAB.ER.24H PO SCH (08:44)
[2023-09-03] MEDS: AMIODARONE 200 MG TAB PO SCH (08:44)
[2023-09-03] MEDS: LOSARTAN 50 MG TAB PO SCH (08:44)
[2023-09-03] MEDS: HEPARIN SODIUM,PORCINE 5,000 UNIT/ML 1 ML VIAL SQ SCH (08:44)
[2023-09-03] MEDS: FUROSEMIDE 40 MG TAB PO SCH (08:44)
[2023-09-03] MEDS: LACTULOSE 20 GM/30 ML CUP PO SCH (08:45)
[2023-09-03 08:53] LABS: HCT 32.1 % (37.2-46.3); HGB 10.2 d/dL (12.0-15.0); MCH 29.8 pg (27.0-32.0); MCHC 31.8 d/dL (32.0-37.0); MCV 93.9 FL (80.0-97.0); Mean Platelet Volume 10.4 FL (9.5-12.2); NRBC Per 100 WBC 0 X 10*3/uL (0.00-0.01); Platelet Count 136 X 10*3/uL (140-440); RBC 3.42 X 10*6/uL (4.10-5.20); RDW 14.6 % (11.5-14.5); WBC 6.37 X 10*3/uL (4.50-10.00)
[2023-09-03 09:02] LABS: ALT 86 U/L (8-44); AST 61 U/L (13-35); Albumin 2.8 d/dL (3.8-4.9); Albumin/Globulin Ratio 1.22 Ratio (1.60-3.17); Alkaline Phosphatase 62 U/L (41-126); BUN/Creat Ratio 12.78 Ratio (12.00-20.00); Blood Urea Nitrogen 11.5 mg/dL (9.0-27.0); Carbon Dioxide 25.5 mmol/L (21.6-31.8); Chloride 106 mmol/L (96-109); Globulin 2.3 d/dL (1.6-3.3); Glucose 92 mg/dL (70-110); Potassium 3.5 mmol/L (3.5-5.5); Sodium 143 mmol/L (135-145); Total Bilirubin 0.3 mg/dL (0.3-1.2); Total Protein 5.1 d/dL (6.2-8.2)
--- NOTE | 2023-09-03 11:24 | CDI ---
Documentation Clarification Form Date: 09/03/2023 11:08:27 AM From: Christina Del Valle RN CCDS Phone: [phone] Admit Date: 08/30/2023 07:48:00 PM Patient Name: Sanna Wan Visit Number: [id number] Discharge Date: ATTENTION: The Clinical Documentation Specialists (CDI) and [facility] Coding Staff appreciate your assistance in clarifying documentation. Please respond to the clarification below the line at the bottom and electronically sign. The CDI & [facility] Coding staff will review the response and follow-up if needed. Please note: Queries are made part of the Legal Health Record. If you have any questions, please contact the author of this message via ITS. Dr. J Luis MD UTI is documented 08/31, H& and patient has morales catheter. Additional clarification regarding the etiology of the UTI is requested. History/Risk Factors: 58-year-old female patient was at [facility] and was transferred to our facility with concern for possible UTI. Patient was recovering at facility after undergoing lumbar spine decompression surgery secondary to a traumatic hematoma to her 3 weeks ago at [facility]. Patient was discharged with a Morales to the facility, and noticed that the patient urine was very foul-smelling. Patient was also spiking fevers at the facility. Medical History: Atrial fib ablation, traumatic hematoma with lumbar spine surgery and HTN, 08/31, H&P. Clinical Indicators: Urinalysis: 08/30 Urine appearance turbid; Protein 1+, Urine Blood Large; Urine Leukocyte Esterase Large, Urine RBC 29, Urine WBC >182 Urine culture: Verified 09/02/2023 Escherichia coli Lab results: 08/30: Wbc 21.4; Neutrophils 19.1 Treatment: 08/30 0.9NS 1L IV Bolus; 08/31 09/01 Cefepime IVPB Q8H; 09/01 Ceftriaxone IVPB Q24H Please clarify the etiology of the UTI, if known: [ ] UTI due to Morales catheter [ ] UTI not related to catheter [ ] Other condition, please specify [ ] Unable to determine (Template Last Revised: January 2021) Documented in the DCS, Dr. Dietz / Laurie Lowry PAYROLL MANAGER: Acute urinary tract infection with features of sepsis, present on admission likely secondary to indwelling Morales catheter MTDD
[2023-09-03 14:01] VITALS: BP 126/82; PULSE 64; TEMP 98.2
--- NOTE | 2023-09-03 14:31 | P.DS ---
Providers Date of admission: 08/30/23 19:48 Expected date of discharge: 09/03/23 Attending physician: Nancy Dietz Consults: 08/31/23 10:17 Consult Physician Routine Consulting Provider: Franchesca Acosta Consult Reason/Comments: complicated UTI Do you want consulting provider notified?: Yes Primary care physician: Gordon Nguyễn [facility] Course: Final diagnosis Acute urinary tract infection with features of sepsis, present on admission likely secondary to indwelling Bautista catheter History of atrial fibrillation Hypertension History of recent lumbar spine decompression surgery secondary to a traumatic hematoma and needs outpatient follow-up for suture/staple removal from surgeon out of [facility] Urinary retention requiring indwelling Bautista catheter. Recommend outpatient follow-up with urology in 1 week Discharge disposition Patient is being discharged in a stable condition with guarded prognosis to [facility]. Patient will follow-up with Dr. Adrian in the outpatient setting upon discharge. Patient is to continue with oral Ceftin twice daily for the next 7 days and close outpatient follow-up with her surgeon as well as urology as scheduled. Total time taken is greater than 35 minutes. Hospital course This is a 58-year-old female who was recently admitted with concerns for urinary tract infection, present on admission most likely secondary to indwelling Bautista catheter. Patient had been at [facility] and was reported to having urinary retention requiring indwelling Bautista catheter and noticed foul-smelling urine. Urine cultures were showing E. coli. Infectious disease following patient maintained on IV ceftriaxone and will continue on oral Ceftin for a seven-day course on discharge. Patient will need outpatient urology follow-up for retention in the outpatient setting in 1-2 weeks and also she needs follow-up with her surgeon out of [facility] for suture/staple removal that was placed during her decompression surgery. Currently no reports of chest pain, shortness of breath, or palpitations. Patient is afebrile. No reports of nausea or vomiting and patient is tolerating diet. Patient will be going to [facility] today. Gua rded prognosis Physical exam: Gen: This is a 58-year-old female who is awake, alert and oriented 3, well- developed, well-nourished, morbidly obese HEENT: Head is atraumatic, normocephalic. Pupils equal, round. Sclerae is anicteric. NECK: Supple. No JVD. No lymphadenopathy. No thyromegaly. LUNGS: Clear to auscultation. No wheezes or rhonchi. No intercostal retractions. HEART: Regular rate and rhythm. No murmur. ABDOMEN: Soft. Bowel sounds are present. No masses. No tenderness. EXTREMITIES: No pedal edema. No calf tenderness. NEUROLOGICAL: Patient is awake, alert and oriented x3. Cranial nerves 2 through 12 are grossly intact. Diffusely weak Please refer to medication reconciliation sheet for a list of medications. The impression and plan of care has been dictated by Laurie Lowry, Nurse Practitioner as directed. Dr. J Luis MD I have performed a history and examination and MDM of this patient, discussed the same with the dictator, and agree with the dictator's assessment and plan as written ,documented as a scribe. Based on total visit time, I have performed more than 50% of the visit. Patient Condition at Discharge: Stable Plan - Discharge Summary New Discharge Prescriptions: New Heparin Sodium,Porcine (1 ml) [Heparin Sodium] 5,000 unit SQ Q12HR each cefUROXime axetiL [Ceftin] 500 mg PO BID 7 Days #14 tab Continue Losartan [Cozaar] 50 mg PO DAILY Furosemide [Lasix] 40 mg PO DAILY #30 tab Magnesium Hydroxide [Milk of Magnesia Concentrate] 7,200 mg PO DAILY PRN PRN Reason: Constipation Famotidine [Pepcid] 20 mg PO DAILY@0600 Gabapentin [Neurontin] 300 mg PO TID@0600,1400,2200 #9 cap bisacodyL [Dulcolax] 10 mg RECTAL DAILY PRN PRN Reason: Constipation Na Phos,M-B/Na Phos,Di-Ba [Fleet Adult] 133 ml RECTAL DAILY PRN PRN Reason: Constipation Ipratropium-Albuterol Nebulize [Duoneb 0.5 mg-3 mg/3 ml Soln] 3 ml INHALATION RT-QID PRN PRN Reason: Shortness Of Breath Acetaminophen [Acetaminophen ER] 650 mg PO Q4H PRN PRN Reason: GENERAL DISCOMFORT methocarbamoL [Robaxin] 1,000 mg PO TID@0600,1400,2200 Lactulose [Cephulac] 20 gm PO BID Metoprolol Succinate (ER) [Toprol XL] 25 mg PO DAILY Lidocaine 5% Patch [Lidoderm 5% Patch] 1 patch TOPICAL DAILY Fluticasone/Vilanterol [Breo Ellipta 100-25 Mcg Inhaler] 1 puff PO RT-DAILY Atorvastatin [Lipitor] 80 mg PO HS Amiodarone [Cordarone] 200 mg PO DAILY@0800 oxyCODONE-APAP 5-325MG [Percocet 5-325 mg] 1 tab PO Q4H PRN #4 tab PRN Reason: Pain Changed Sennosides/Docusate Sodium [Senna-S 8.6-50 mg Tablet] 1 tab PO BID@0800,1700 PRN #0 PRN Reason: Constipation Discontinued cefTRIAXone [Rocephin] 1 gm IVPB DIRECTED polyethylene glycoL 3350 [Miralax] 17 gm PO DAILY Discharge Medication List Losartan [Cozaar] 50 mg PO DAILY 06/17/21 [History] Furosemide [Lasix] 40 mg PO DAILY #30 tab 06/19/21 [Rx] Acetaminophen [Acetaminophen ER] 650 mg PO Q4H PRN 08/30/23 [History] Amiodarone [Cordarone] 200 mg PO DAILY@0800 08/30/23 [History] Atorvastatin [Lipitor] 80 mg PO HS 08/30/23 [History] Famotidine [Pepcid] 20 mg PO DAILY@0600 08/30/23 [History] Fluticasone/Vilanterol [Breo Ellipta 100-25 Mcg Inhaler] 1 puff PO RT-DAILY 08/30/23 [History] Ipratropium-Albuterol Nebulize [Duoneb 0.5 mg-3 mg/3 ml Soln] 3 ml INHALATION RT-QID PRN 08/30/23 [History] Lactulose [Cephulac] 20 gm PO BID 08/30/23 [History] Lidocaine 5% Patch [Lidoderm 5% Patch] 1 patch TOPICAL DAILY 08/30/23 [History] Magnesium Hydroxide [Milk of Magnesia Concentrate] 7,200 mg PO DAILY PRN 08/30/23 [History] Metoprolol Succinate (ER) [Toprol XL] 25 mg PO DAILY 08/30/23 [History] Na Phos,M-B/Na Phos,Di-Ba [Fleet Adult] 133 ml RECTAL DAILY PRN 08/30/23 [History] bisacodyL [Dulcolax] 10 mg RECTAL DAILY PRN 08/30/23 [History] methocarbamoL [Robaxin] 1,000 mg PO TID@0600,1400,2200 08/30/23 [History] Gabapentin [Neurontin] 300 mg PO TID@0600,1400,2200 #9 cap 09/03/23 [Rx] Heparin Sodium,Porcine (1 ml) [Heparin Sodium] 5,000 unit SQ Q12HR each 09/03/23 [Rx] Sennosides/Docusate Sodium [Senna-S 8.6-50 mg Tablet] 1 tab PO BID@0800,1700 PRN #0 09/03/23 [Rx] cefUROXime axetiL [Ceftin] 500 mg PO BID 7 Days #14 tab 09/03/23 [Rx] oxyCODONE-APAP 5-325MG [Percocet 5-325 mg] 1 tab PO Q4H PRN #4 tab 09/03/23 [Rx] Follow up Appointment(s)/Referral(s): Gordon Adrian MD [Primary Care Provider] - 1 Week Activity/Diet/Wound Care/Special Instructions: Patient is going to [facility] as tolerated Patient follow-up with neurosurgeon regarding staple removal Follow-up urology outpatient in 1-2 weeks Continue indwelling Bautista catheter for retention Continue antibiotics in the form of Ceftin for the next 7 days per ID recommendations Discharge Disposition: TRANSFER TO SNF/ECF
== END 2023-09-03 18:35 | DRG 698 ==
LOC: EC 16:39 → 5NMEDONC 19:48
PROVIDERS: ADMIT Hospitalist; ATTEND Hospitalist
DX: T83.518A Infection and inflammatory reaction due to other urinary catheter, initial encounter (principal); A41.51 Sepsis due to Escherichia coli [E. coli]; N39.0 Urinary tract infection, site not specified; I11.9 Hypertensive heart disease without heart failure; J44.9 Chronic obstructive pulmonary disease, unspecified; I48.91 Unspecified atrial fibrillation; Z20.822 Contact with and (suspected) exposure to COVID-19; I25.2 Old myocardial infarction; Z79.899 Other long term (current) drug therapy; Z82.49 Family history of ischemic heart disease and other diseases of the circulatory system; Z83.3 Family history of diabetes mellitus
CPT/HCPCS: 36415; 71046; 80048; 80053; 81001; 82150; 83605; 83690; 85025; 85027; 85652; 86140; 87040; 87077; 87086; 87186; 87636; 93005; 94640; 96360; 96361; 99285

== ENCOUNTER → 2024-05-13 | Outpatient (CLI) | payer BC ==
--- NOTE | 2024-05-13 16:45 | US ---
EXAMINATION TYPE: US kidneys/renal and bladder DATE OF EXAM: 05/13/2024 COMPARISON: NONE CLINICAL INDICATION: Female, 59 years old with history of N39.0 UTI; Frequent UTIs EXAM MEASUREMENTS: Right Kidney: 10.4 x 4.8 x 5.6 cm Left Kidney: 9.9 x 4.5 x 5.0 cm Right Kidney: No hydronephrosis or masses seen Left Kidney: Very limited visibility. No hydronephrosis or masses seen Lobulated contour. Bladder: Appears anechoic. Bilateral Jets seen: Yes No hydronephrosis or solid mass is identified. Limited visualization left kidney. Cortical medullary differentiation is maintained bilaterally. Lobulated contour. Urinary bladder appears anechoic withou t filling defect. No wall thickening identified. Bilateral ureteral jets are identified. IMPRESSION: No hydronephrosis or nephrolithiasis.
== END | disposition home or self-care (01) ==
LOC: RADUSWWP 15:54
PROVIDERS: ATTEND Urology
DX: N39.0 Urinary tract infection, site not specified (principal)
CPT/HCPCS: 76770